=== PATIENT | female | born 1965 | race Caucasian/White ===

== ENCOUNTER 2023-08-25 10:07 | Emergency (ER) | payer OTHER ==
--- OUTSIDE RECORDS SUMMARY | 2023-08-25 10:10 | XMS REPORT | Clinical Summary ---
:1965 Author Organization [facility] MD [facility] Address [address] [place] [address] Care Team Providers Name Role Phone Bonifacio Louie MD Unavailable Luciana Lares MD Primary Care Provider Elda Cervantes MD Unavailable Allergies No known active allergies Medications Medication Sig Dispensed Refills Start Date End Date Status ondansetron (ZOFRAN) 0 07/19/2022 Active 4 mg tablet Januvia 100 mg tablet TAKE 1 TABLET 0 06/08/2022 Active BY MOUTH EVERY DAY traZODone (DESYREL) TAKE 1 TABLET 0 06/08/2022 Active 150 mg tablet BY MOUTH EVERYDAY AT BEDTIME mirtazapine (REMERON) TAKE 1 TABLET 0 05/23/2022 Active 15 mg tablet BY MOUTH EVERYDAY AT BEDTIME pioglitazone (ACTOS) TAKE 1 TABLET 0 06/08/2022 Active 30 mg tablet BY MOUTH EVERY DAY glipiZIDE (GLUCOTROL) TAKE 1 TABLET 0 06/08/2022 Active 10 mg tablet BY MOUTH EVERY DAY cloNIDine HCl TAKE 1 TABLET 0 06/22/2022 A ctive (CATAPRES) 0.3 mg BY MOUTH tablet EVERYDAY AT BEDTIME metoprolol succinate TAKE 1 TABLET 0 06/08/2022 Active (TOPROL XL) 50 mg 24 BY MOUTH EVERY hr tablet DAY IN THE MORNING lisinopril TAKE 1 TABLET 0 06/08/2022 Acti ve (PRINIVIL,ZESTRIL) 20 BY MOUTH EVERY mg tablet DAY IN THE MORNING HYDROcodone-acetamino TAKE 1 TABLET 0 06/28/2022 Active phen (NORCO) 10 BY MOUTH EVERY mg-325 mg per tablet 6 HOURS NEEDED FOR PAIN (MAX OF 4 TABLETS DAILY)... blood sugar Check sugars 1 0 06/03/2017 Ac tive diagnostic strp times a day. Dx Code E11.9. Brand per insurance. blood-glucose meter Check sugars 0 06/03/2017 Active kit times a day. Dx Code E11.9. Brand per insurance. lancets 28 gauge misc Use as directed 0 06/05/2017 Active lactulose (CHRONULAC) 0 08/07/2022 Active 10 gram/15 mL solution calcitriol Take 1 capsule 30 capsule 0 09/06/2022 10/06/2022 E xpired (ROCALTROL) 0.25 mcg (0.25 mcg) by capsuleIndications: mouth daily for Thyroid nodule 30 days. calcium carbonate Take 1 tablet 90 tablet 0 09/06/2022 023 (OS-DEBBY) 500 mg (500 mg) by (1,250 mg calcium mouth 3 (three) carbonate per tablet) times a day for tabletIndications: 30 days. Thyroid nodule levothyroxine Take 1 tablet 30 tablet 0 09/07/2022 10/07/2022 (SYNTHROID, (200 mcg) by LEVOTHROID) 200 mcg mouth daily for tabletIndications: 30 days. 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 , chronic renal 02/01/2020 disease stage 2, chronic renal disease stage 3 or chronic re nal disease stage 4 Gastro-esophageal reflux disease without esophagitis 020 Chronic kidney disease stage 3 02/01/2020 Essential hypertension 10/15/2019 Malignant neoplasm of axillary tail of female breast 020 Type 2 diabetes mellitus 10/15/2019 Hyperlipidemia 12/13/2015 Malignant tumor of breast 01/14/2015 Depressive disorder 10/25/2014 Encounters Date Type Department Care Team Description 02/27/2023 Refill [facility] Helen, Elda Ceja, Thyroi d nodule [place] - Head & Neck PR Surgery [address] [place] [address] 09/29/2022 Refill Elda Thorne, Thyroi d nodule [facility] - Head & Neck Surgery [address] [place] [address] 09/13/2022 Telephone [facility], [address]ldg, 6th [place] [address] 09/11/2022 Office Visit Elda Thorne, Thyroi d nodule 1:00 PM [facility] Head [facility] Neck PRODUCTION POSTING CLERK Surgery [address] [place] [address] 09/11/2022 Travel 09/07/2022 Telephone Citlaly Vyas [facility]ura Head & Neck sales engagement manager [address] [place] [address] 09/06/2022 Orders Only Endocrine Center Kelsi Marrufo, Postprocedural [address] ENTRY LEVEL FINANCIAL ANALYST hypoparathyroidism Main Bldg, 6th (Primary Dx) [place] [address] 09/05/2022 Surgery MAIN OR Elda Cervantes, TOTAL OR COMPLETE 8:00 AM Tammie Hu MD THYROIDECTOMY [facility] [place] [address] 09/05/2022 12:[address] [facility] 09/05/2022 Anesthesia Event MAIN OR Lan, 8:00 AM [place] [address] Toni Roberson, HEALTHCARE ECONOMICS MANAGER 09/05/2022 Hospital Encounter MAIN 12SW Elda Cervantes, Thyroid nodule 5:48 AM Tammie Pacheco MD Discharge Disp osition: Home [facility] [place] 09/06/2022 [place] [address] 3:27 PM [phone] [facility] 09/05/2022 Travel 09/04/2022 Anesthesia Event Perioperative Bre Mcallister, 11:59 PM Evaluation and ENTRY LEVEL FINANCIAL ANALYST PRODUCTION POSTING CLERK Management Center [address], 6th [place] [address] 09/04/2022 POEM Appointments Perioperative Harjeetjessicajonas, Thyroid n odule 11:30 AM Evaluation and FABIO Ramos PRODUCTION POSTING CLERK Management Center [address] [facility] Main [facility], 6th [place] [address] 09/03/2022 Clinical Support Roman Wynn cted COVID-19 (Primary Dx); 9:00 AM [facility] FABIO Louie Thyroid nodule PRODUCTION POSTING CLERK Testing Breann West [address] [place] [address] 09/03/2022 Travel after 08/25/2022 Surgical History Surgery Date Site/Laterality Comments HYSTERECTOMY THYROID SURGERY CHOLECYSTECTOMY PA THYROIDECTOMY TOTAL/COMPLETE 09/05/2022 Neck/Bilateral Procedure: TOTAL OR COMPLETE THYROID ECTOMY; Surgeon: Elda Cervantes MD; Location: [place]; Service: - AD & NECK SURGERY Medical History Medical History Date Comments Hypertension Hyperlipidemia Anemia Arthritis Disorder of thyroid gland Diabetes mellitus Malignant tumor of breast Stage 4 right breast cancer Family History Medical History Relation Name Comments Skin cancer Maternal Uncle Dwayne Escobar Stomach cancer Maternal Uncle Dwayne Escobar Relation Name Status Comments Maternal Uncle Dwayne Escobar Alive Social History Tobacco Use Types Packs/Day Years Used Date Smoking Tobacco: Former Cigarettes 0.5 2 Quit : 2009 Smokeless Tobacco: Never Tobacco Cessation: Counseling Given: Not Answered Comments: Per patient she only smoked 1 cigarette socially for about 2 years. Alcohol Use Standard Drinks/Week Comments Not Currently 0 (1 standard drink = 0.6 oz pure alcoho l) Sex and Gender Information Value Date Recorded Sex Assigned at Not on file Gender Identity Not on file Sexual Orientation Not on file Job Start Date Occupation Industry Not on file Not on file Not on file Obstetrics History Last Filed Vital Signs Vital Sign Reading Time Taken Comments Blood Pressure 151/86 09/11/2022 1:07 PM PRODUCTION POSTING CLERK Pulse 67 09/11/2022 1:07 PM PRODUCTION POSTING CLERK Temperature 36.9 C (98.4 F) 09/11/2022 1:07 PM PRODUCTION POSTING CLERK Respiratory Rate 14 09/11/2022 1:07 PM PRODUCTION POSTING CLERK Oxygen Saturation 100% 09/11/2022 1:07 PM PRODUCTION POSTING CLERK Inhaled Oxygen Concentration - - Weight 120.8 kg (266 lb 5.1 oz) 09/11/2022 1:07 PM PRODUCTION POSTING CLERK Height - - Body Mass Index 39.58 08/01/2022 1:57 PM PRODUCTION POSTING CLERK Plan of Treatment Health Maintenance Due Date Last Done Comments COVID-19 Vaccination (#1) 1965 Procedures Procedure Name Priority Date/Time Associated Diagnosis Comme nts PTH INTACT STAT 09/11/2022 11:53 Postprocedural Results f or AM PRODUCTION POSTING CLERK hypoparathyroidism this proc edure are in the results section. ALBUMIN LEVEL STAT 09/11/2022 11:53 Postprocedural Results for AM PRODUCTION POSTING CLERK hypoparathyroidism this proc edure are in the results section. PHOSPHORUS LEVEL STAT 09/11/2022 11:53 Postprocedural Resul ts for AM PRODUCTION POSTING CLERK hypoparathyroidism this proc edure are in the results section. MAGNESIUM LEVEL STAT 09/11/2022 11:53 Postprocedural Result s for AM PRODUCTION POSTING CLERK hypoparathyroidism this proc edure are in the results section. CALCIUM LEVEL STAT 09/11/2022 11:53 Postprocedural Results for AM PRODUCTION POSTING CLERK hypoparathyroidism this proc edure are in the results section. ALBUMIN LEVEL AM 09/06/2022 2:41 Results for AM PRODUCTION POSTING CLERK this procedure are in the results section. PTH INTACT AM 09/06/2022 2:41 Results for AM PRODUCTION POSTING CLERK this procedure are in the results section. PHOSPHORUS LEVEL AM 09/06/2022 2:41 Results for AM PRODUCTION POSTING CLERK this procedure are in the results section. CALCIUM LEVEL AM 09/06/2022 2:41 Results for AM PRODUCTION POSTING CLERK this procedure are in the results section. MAGNESIUM LEVEL AM 09/06/2022 2:41 Results f or AM PRODUCTION POSTING CLERK this procedure are in the results section. POC GLUCOSE SCREEN Routine 09/05/2022 3:32 Result s for PM PRODUCTION POSTING CLERK this procedure are in the results section. PHOSPHORUS LEVEL Now 09/05/2022 11:31 Results for AM PRODUCTION POSTING CLERK this procedure are in the results section. MAGNESIUM LEVEL Now 09/05/2022 11:31 Results for AM PRODUCTION POSTING CLERK this procedure are in the results section. CALCIUM LEVEL Now 09/05/2022 11:31 Results fo r AM PRODUCTION POSTING CLERK this procedure are in the results section. PTH INTACT Now 09/05/2022 11:31 Results for AM PRODUCTION POSTING CLERK this procedure are in the results section. ALBUMIN LEVEL Now 09/05/2022 11:31 Results fo r AM PRODUCTION POSTING CLERK this procedure are in the results section. POC GLUCOSE SCREEN Routine 09/05/2022 10:22 Resul ts for AM PRODUCTION POSTING CLERK this procedure are in the results section. PATHOLOGY SURGICAL Routine 09/05/2022 9:59 Thyroid nodule Resu lts for INTERPRETATION AM PRODUCTION POSTING CLERK this procedur e are in the results section. TOTAL OR COMPLETE 09/05/2022 7:20 Thyroid nodule THYROIDECTOMY AM PRODUCTION POSTING CLERK [facility] [place] 0615 POC GLUCOSE SCREEN Routine 09/05/2022 7:16 AM Res ults for this PRODUCTION POSTING CLERK procedure are i n the results section. TMP INTERPRETATION Routine 09/05/2022 6:48 AM Res ults for this ANTIBODY SCREEN PRODUCTION POSTING CLERK procedure ar e in NEGATIVE the results section. CLOT EXPIRATION DATE Routine 09/05/2022 6:48 AM R esults for this PRODUCTION POSTING CLERK procedure are i n the results section. ANTIBODY SCREEN Now 09/05/2022 6:48 AM Result s for this PRODUCTION POSTING CLERK procedure are i n the results section. ABORH Now 09/05/2022 6:48 AM Results f or this PRODUCTION POSTING CLERK procedure are i n the results section. TYPE AND SCREEN Now 09/05/2022 6:48 AM PRODUCTION POSTING CLERK COVID-19 (SARS-COV-2) Routine 09/03/2022 9:54 AM Suspected COV ID-19 Results for this PCR - ASYMPTOMATIC - [facility] PRODUCTION POSTING CLERK proc edure are in the results section. after 08/25/2022 Results PTH Intact (09/11/2022 11:53 AM PRODUCTION POSTING CLERK)Only the most recent of3 resultswithin the time period is included. athologist Signature PTH Intact 25.9 15.0 - 65.0 [facility] pg/mL CANCER CENTER Specimen Anatomical Collection Method Collection Time Receive d Time (Source) Location / / Volume Laterality Blood 09/11/2022 11:53 09/11/2022 7:26 AM PRODUCTION POSTING CLERK PM PRODUCTION POSTING CLERK Narrative [facility] - 7:39 PM PRODUCTION POSTING CLERK To be drawn at [facility]. Please schedule to be done along with other appointment on Saturday09/10/22 Kelsi Marrufo APRN LAB BLOOD ORDERABLES Performing Organization Address City/State/ZIP Code Phon e Number [facility] CANCER Unless otherwise noted, [place] [address] [place] all lab tests performed by: Division of Pathology and Laboratory Medicine [address] (ABNORMAL) Phosphorus Level (09/11/2022 11:53 AM PRODUCTION POSTING CLERK)Only the most recent of3 resultswithin the time period is included. athologist Signature Phosphorus 5.1 (H) 2.5 - 4.5 [place] mg/dL Comment: Testing performed at [facility], [address] [place] [address] Specimen Anatomical Collection Method Collection Time Receive d Time (Source) Location / / Volume Laterality Blood 09/11/2022 11:53 09/11/2022 AM PRODUCTION POSTING CLERK 11:54 AM PRODUCTION POSTING CLERK [facility] - 09/11/2022 12:16 PM PRODUCTION POSTING CLERK To be drawn at [facility]. Please schedule to be done along with other appointment on Saturday09/10/22 Kelsi Marrufo APRN LAB BLOOD ORDERABLES Performing Organization Address City/[facility]/[place]IP [place] [address], [facility] [address] (ABNORMAL) Magnesium Level (09/11/2022 11:53 AM PRODUCTION POSTING CLERK)Only the most recent of3 resultswithin the time period is included. athologist Signature Magnesium 1.5 (L) 1.6 - 2.6 [place] mg/dL Comment: Testing performed at [facility], [address] [place] [address] Specimen Anatomical Collection Method Collection Time Receive d Time (Source) Location / / Volume Laterality Blood 09/11/2022 11:53 09/11/2022 AM PRODUCTION POSTING CLERK 11:54 AM PRODUCTION POSTING CLERK [facility] - 09/11/2022 12:16 PM PRODUCTION POSTING CLERK To be drawn at [facility]. Please schedule to be done along with other appointment on Saturday09/10/22 Kelsi Marrufo APRN LAB BLOOD ORDERABLES Performing Organization Address City/[facility]/ZIP [facility] [place] [address], [facility] [address] Calcium Level (09/11/2022 11:53 AM PRODUCTION POSTING CLERK)Only the most recent of3 resultswithin the time period is included. athologist [facility] Calcium Lvl 8.7 8.4 - 10.2 [place] mg/dL Comment: Testing performed at [facility], [address] [place] [address] Specimen Anatomical Collection Method Collection Time Receive d Time (Source) Location / / Volume Laterality Blood 09/11/2022 11:53 09/11/2022 AM PRODUCTION POSTING CLERK 11:54 AM PRODUCTION POSTING CLERK [facility] - 09/11/2022 12:16 PM PRODUCTION POSTING CLERK To be drawn at [facility]. Please schedule to be done along with other appointment on Saturday09/10/22 Kelsi Marrufo APRN LAB BLOOD ORDERABLES Performing Organization Address City/[facility]/ZIP Code Phon e Number [place], [place] [address] [place] [address], [facility] [address] Albumin Level (09/11/2022 11:53 AM PRODUCTION POSTING CLERK)Only the most recent of3 resultswithin the time period is included. athologist [facility] Albumin Lvl 4.1 3.5 - 5.2 [place] gm/dL Comment: Testing performed at [facility], [address] [place] [address] Specimen Anatomical Collection Method Collection Time Receive d Time (Source) Location / / Volume Laterality Blood 09/11/2022 11:53 09/11/2022 AM PRODUCTION POSTING CLERK 11:54 AM PRODUCTION POSTING CLERK [facility] - 09/11/2022 12:16 PM PRODUCTION POSTING CLERK To be drawn at [facility]. Please schedule to be done along with other appointment on Saturday09/10/22 Kelsi Marrufo APRN LAB BLOOD ORDERABLES Performing Organization Address City/[facility] Phon e Number [place], [place] [phone] [place] [address], [facility] [address] (ABNORMAL) POC Glucose Screen (09/05/2022 3:32 PM PRODUCTION POSTING CLERK)Only the most recent of3 resultswithin the time period is included. athologist Signature POC Glucose 117 (H) 70 - 99 POC [facility] mg/dL Comment: Capillary blood samples, e.g. obtained b y fingerstick, may have inaccurate results in patients with decreased peripheral blood flow. Method description: All results are keon ured using Electrochemistry test methodology. The glucose in the sample mixes with the reagents on the test strip. The reaction produces an electric current. The amount of current produced is proportion al to the glucose concentration in the blood. PO Sample Type Capillary POC TELCOR Performing Lab [facility] POC TELCO R Comment: [facility] Clinical Lab, [address] [place] [address], [place] [address]; Lab Direct or: Leslie Sol MD Specimen Anatomical Collection Method Collection Time Receive d Time (Source) Location / / Volume Laterality Blood 09/05/2022 3:32 PM 3:32 PRODUCTION POSTING CLERK PM PRODUCTION POSTING CLERK Elda Cervantes MD POCT ORDERABLES - DEVICE Performing Organization Address City/State/ZIP Code Phon e Number POC [facility] Unless otherwise notes, all [place] [id number] lab tests performed by: Division of Pathology and Laboratory Medicine [address] [place] [address] Pathology Surgical Interpretation (09/05/2022 9:59 AM PRODUCTION POSTING CLERK) Component Value Ref Test Analysis Performed Pathologis t Range Method Time At Signature Submitted Thyroid nodule 09/11/2022 [facility] Clinical [E04.1] 12:32 PM History PRODUCTION POSTING CLERK Diagnosis Right thyroid lobectomy (A), right substernal mass(B) and left retrosternal mass (C): 09/11/2022 [facility] Elect ronically 12:32 PM signed by Follicular adenomatous hyperplasia(A,B and C) PRODUCTION POSTING CLERK Mabel Garcia MD on 09/11/2022 at 12:32 PM AEN/FBA Gross A: 09/11/2022 [facility] Description Right thyroid lobectomy stit ch superior pole (permanent): Consists of a 6.5 x 3.5 x 3.1 cm thyroid lobectomy. Per the surgeon there is a stitch designating the superior pole. The capsule is kovacs-brown and intact. 12:32 PM The specimen is serially sec tioned from superior to inferior to demonstrate multiple nodules (ranging from 0.3-1.7 cm in greatest dimension) extending from the superior to inferior poles. The nodules de PRODUCTION POSTING CLERK monstrate slightly solid pin k-kovacs to hemorrhagic cut surfaces. Remaining parenchyma is red-brown with interspersed colloid material. SECTION CODE: A1-A2, superior pole; A3, midpole; A4-A5, inf erior pole. MF B: Right substernal mass (perma nent): Consists of two nodular portions of kovacs- brown soft tissue measuring 1.3 x 0.8 x 0.6 cm and 3.3 x 2.5 x 2.4 cm. Sectioning demonstrates kovacs-brown cut surfaces with jesu oid material. The specimen is entirely submitted. SECTION CODE: B1, smaller nodule (trisected); B2-B8, larger nodule. MF C: Left retrosternal mass (perm anent): Consists of a 3.0 x 2.9 x 2.1 cm portion of nodular kovacs-brown soft tissue. The specimen is serially sectioned to demonstrate cut surfaces containing colloid material admixed with possible hemorr silver. The specimen is entirely submitted in cassettes C1-C6. MF Biomarker NA 09/11/2022 [facility] Block(s) 12:32 PM PRODUCTION POSTING CLERK Disclaimer "Some tests 09/11/2022 [facility] reported here may 12:32 PM have been PRODUCTION POSTING CLERK developed and performance characteristics determined by [facility] Pathology and Laboratory Medicine. These tests have not been specifically cleared or approved by the U.S. Food and Drug Administration. If applicable, controls were reviewed and showed appropriate reactivity." Specimen Anatomical Collection Method Collection Time Receive d Time (Source) Location / / Volume Laterality Tissue specimen 09/05/2022 9:59 AM 2021 (specimen) PRODUCTION POSTING CLERK 10:37 AM PRODUCTION POSTING CLERK (Thyroid, Right Lobe) Tissue specimen 09/05/2022 10:14 09/05/20 22 (specimen) AM PRODUCTION POSTING CLERK 10:37 AM PRODUCTION POSTING CLERK (Chest, Right) Tissue specimen 09/05/2022 10:21 09/05/20 22 (specimen) AM PRODUCTION POSTING CLERK 10:37 AM PRODUCTION POSTING CLERK (Chest, Left) Elda Cervantes MD LAB PATHOLOGY ORDERABLES Performing Organization Address City/State/ZIP Code Phon e Number [facility] [place] [address], [place] [address] [place] Clot Expiration Date (09/05/2022 6:48 AM PRODUCTION POSTING CLERK) [facility] Signature T & S 09/08/2022 [facility] Specimen Anatomical Collection Method Collection Time Receive d Time (Source) Location / / Volume Laterality Blood 09/05/2022 6:48 AM 2 7:41 PRODUCTION POSTING CLERK AM PRODUCTION POSTING CLERK Bre Mcallister APRN BLOOD BANK TEST ORDERABLES Performing Organization Address City/State/ZIP Code Phon e Number [facility] CANCER Unless otherwise noted, [address] all lab tests performed by: Division of Pathology and Laboratory Medicine [address] [place] [address] TMP Interpretation Antibody Screen Negative (09/05/2022 6:48 AM PRODUCTION POSTING CLERK) [facility] TMP Auto Neg At the [facility] patient plasma shows no evidence of RBC alloantibodi es. Comment: ANGIE MENDOSA MD, PhD - [id number] Dictated by: ANGIE MENDOSA MD, Ph D - [id number] Dictated Date/Time: 09.05.2022 10:34 AM PRODUCTION POSTING CLERK Transcribed Date/Time: 09.05.2022 10:34 AM PRODUCTION POSTING CLERK Electronically Signed By: ANGIE MENDOSA MD, PhD - [id number] on 09.05.2022 10:34 AM Specimen Anatomical Collection Method Collection Time Receive d Time (Source) Location / / Volume Laterality Blood 09/05/2022 6:48 AM 2 7:41 PRODUCTION POSTING CLERK AM PRODUCTION POSTING CLERK Bre Mcallister APRN BLOOD BANK TEST ORDERABLES Performing Organization Address City/State/ZIP [facility] Phon e Number [facility] Unless otherwise noted, [address] all lab tests performed by: Division of Pathology and Laboratory Medicine [address] [place] [address] ABORh (09/05/2022 6:48 AM PRODUCTION POSTING CLERK) P athologist Signature ABORh. A POS [facility] Specimen Anatomical Collection Method Collection Time Receive d Time (Source) Location / / Volume Laterality Blood 09/05/2022 6:48 AM 2 7:41 PRODUCTION POSTING CLERK AM PRODUCTION POSTING CLERK Bre Mcallister APRN BLOOD BANK TEST ORDERABLES Performing Organization Address City/State/ZIP Code Phon e Number [facility] Unless otherwise noted, [address] all lab tests performed by: Division of Pathology and Laboratory Medicine [facility] [place] Antibody Screen (09/05/2022 6:48 AM PRODUCTION POSTING CLERK) P athologist Signature ABSC. Negative ABSC [facility] Specimen Anatomical Collection Method Collection Time Receive d Time (Source) Location / / Volume Laterality Blood 09/05/2022 6:48 AM 2 7:41 PRODUCTION POSTING CLERK AM PRODUCTION POSTING CLERK Bre Mcallister APRN BLOOD BANK TEST ORDERABLES Performing Organization Address City/[facility] Phon e Number [facility] Unless otherwise noted, [address] all lab tests performed by: Division of Pathology and Laboratory Medicine [facility] COVID-19 (SARS-CoV-2) PCR-Asymptomatic [facility] (09/03/2022 9:54 AM PRODUCTION POSTING CLERK) Patholo gist Method Time Signature COVID19 (SARS Not Detected Not Detected [facility] CoV-2) [facility] Comment: This test is a qualitative reverse-trans criptase polymerase chain reaction (RT- PCR) developed for the [employer] system and intended for qualitative detection of SARS CoV-2 RNA in nasopharyngeal a nd oropharyngeal swab specimens collecte d from any individuals, including those suspected o f COVID-19 by their healthcare provider, and those without symptoms or other reasons to suspect COVID-19. A fact sheet for patients provided by the web services manager ( [employer]) can be rev iewed at: https://www.fda.gov/media/884445/adrien d. A fact sheet for Health Care providers is provided by the web services manager ([employer]) and can be reviewed at: https://www.fda.gov/media/264012/download Results must be interpreted within the c ontext of all relevant clinical and laboratory findings and should not form the sole basis for a diagnosis or treatment decision. Positive results do not rule out bacterial infection or co- infection with other viruses. Negative results do not rule ou t SARS-CoV-2 and must be combined with clinical observations, patient history, and/or epidemiological information. "Presumptive Positive" results are due t o partial amplification of SARS-CoV-2 targets and indicates low amounts of virus present in the specimen at or near the limit of detection. Regardless, individuals with "Presumptive Positive" results should be managed per institutional guidelines as individuals positive for SARS-CoV-2 virus, including use of appropriate infection control protocols. Internal controls are included to assess for possible amplification inhibitors. If inhibition is detected, testing is repeated and if inhibition is confirmed the specimen is resulted as "Invalid". When an "Invalid" result occurs, it is recomm ended to wait 3 days before submitting a new spec imen for testing if clinically indicated. This assay has been approved by the FDA for use only under Emergency Use Authorization (EUA) in laboratories that have been CLIA-certified to perform moderate-complexity and high-complexity tests. The performance characteristics of this assay were verified by the Microbiology Laboratory at [facility], CLIA Accreditation #: [id number] and CAP Accreditation #: [id number]. COVID19 SARS Source ELEMENTARY SCIENCE TEACHER Swab CO MD [facility] COVID19 SARS Indication Pre-OR Procedure [facility] Specimen (Source) Anatomical Collection Method Collection Time Re ceived Time Location / / Volume Laterality Nasopharyngeal Swab 09/03/2022 9:54 09/03 AM PRODUCTION POSTING CLERK 7:36 PM PRODUCTION POSTING CLERK Rachel MCCARTHY MICROBIOLOGY - GENERAL ORDER NOHEMY Performing Organization Address City/State/ZIP Code Phon e Number [facility] Unless otherwise noted, [place] [address] [place] all lab tests performed by: Division of Pathology and Laboratory Medicine [address] [place] [address] [place] after 08/25/2022 Insurance Payer Benefit Plan / Subscriber ID Effective Phone Address T ype Group Dates MEDICARE MEDICARE PART A [id number] 2016-Pres [phone] [facility] Medicare AND B ent [id number] [employer] [address] [employer] [place] [id number] [place] [id number] 2022-Pre [address] Medicaid TRADITIONAL TRADITIONAL sent [id number] [place] [address] Advance Directives Code Status Date Activated Date Inactivated Comments Full Code 09/05/2022 2:32 PM 09/06/2022 5:33 PM Care Teams Hotel Housekeeper Relationship Specialty Start Date End Date Bonifacio Louie PCP - External Referring Family Practice 02/17/20 MD Chris [address] [place] [address] [place] [address] Luciana Lares MD PCP - General Medical Oncology 02/18/[address] [place] [id number] Elda Cervantes MD Physician Head and Neck Surgery 07/24/[address] [place] [id number]
--- OUTSIDE RECORDS SUMMARY | 2023-08-25 10:21 | XMS REPORT | Continuity of Care Document ---
:1965 Author Organization [facility] t Address [address] [place] [address] [address] [place] [address] Care Team Providers Name Role Phone [phone] Primary Care Physician Unavailable SYSTEM, PROVIDER NOT IN Attending Clinician Unavailable SPIKE CALDWELL Attending Clinician Unavailable Spike Caldwell MD Attending Clinician Doctor Unassigned, [place] Attending Clinician Unavailable 2, [facility] Attending Clinician Unavailable Jayna Moulton NP Attending Clinician Elda Cervantes MD Attending Clinician RADIOLOGY Attending Clinician Unavailable Radiology Attending Clinician Unavailable SANDRA GREGORY Attending Clinician Unavailable Agustín Bowles Attending Clinician ELDA CERVANTES Attending Clinician Unavailable KELSI MCCLAIN Attending Clinician Unavailable Citlaly Koehler RN Attending Clinician Unavailable Kelsi Mcclain APRN Attending Clinician Laurie Montenegro MD Attending Clinician Toni Roberson CRNA Attending Clinician Bre Mcallister APRN Attending Clinician Tenzin Reyes Attending Clinician TENZIN DREW Attending Clinician Unavailable Braenn West MA Attending Clinician Unavailable JAIRO ARAYA Attending Clinician Unavailable Liban LEDESMA, Pepe Perez Attending Clinician ADARSH ALICEA Attending Clinician Unavailable Johnathon LEDESMA, Adarsh Polk Attending Clinician Obdulia WILSON, Alyssa Attending Clinician Unavailable Ye LEDESMA, Gordon Attending Clinician Eduard LEDESMA, Abel Attending Clinician PEPE CAAL Attending Clinician Unavailable King LOWELL MD, Pepe Vora Attending Clinician Simba Holm DO Attending Clinician Jonna LEDESMA, Mary Shanks Attending Clinician [phone] SHENG CAI Attending Clinician Unavailable Modesta OKEEFE, Sheng Christian Attending Clinician Blanca Ortiz DO Attending Clinician NABOR DIALLO Attending Clinician Unavailable Yudith MYERS, Nabor B Attending Clinician Margarito LEDESMA, Rossana Attending Clinician Marco A LEDESMA, Daniela Hernadez Attending Clinician Concha Bustamante Attending Clinician SAMM MANLEY Admitting Clinician Unavailable ELDA CERVANTES Admitting Clinician Unavailable SPIKE CALDWELL Admitting Clinician Unavailable Abel Chapa MD Admitting Clinician SHENG CAI Admitting Clinician Unavailable NABOR DIALLO Admitting Clinician Unavailable Payers Payer Name Policy Type Policy Number Effective Date Expiration Date S kyle MEDICARE PART A [id number] 2016 \\T\\ B 00:00:00 MOHINI MOLINA PLS [id number] 2019 HMO 00:00:00 MEDICAID OF [place] [id number] 2021 00:00:00 Problems Condition Condition Condition Status Onset Resolution Last Treating Co mments Source Name Details Category Date Date Treatment Clinician Date Anxiety, Anxiety, Disease Active Unive rs generalize generalize 6-08 it y of d d 00:00: Medical Branch 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 [facility] Added automatic ally from request for surgery [id number] Goiter Goiter Disease Active Univers 9-18 ity of 00:00: Medical Branch Chronic Chronic Disease Active Univers pain pain 9-18 ity of syndrome syndrome 00:00: [place] [facility] Chest pain Chest pain Disease Active U nivers 7-14 ity of 00:00: [place] [facility] Elevated Elevated Disease Active Unive rs brain brain 7-14 ity of natriureti natriureti 00:[place] c peptide c peptide 00 Medi debby (BNP) (BNP) Branch level level BMI BMI Disease Active Univers 37.0-37.9, 37.0-37.9, 7-14 it y of adult adult 00:00: [place] [facility] 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 5-19 ity of syndrome syndrome 00:00: [place] 00 MD [facility] 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 hyperchole 5-11 it y of sterolemia sterolemia 00:[place]: [place] 00 [place] Benign Benign Disease Active Univers hypertensi hypertensi 5-11 it y of on with on with 00:00: [place] chronic chronic 00 renal renal Anderso disease disease n stage 1, stage 1, Cancer chronic chronic Center renal renal disease disease stage 2, stage 2, chronic chronic renal renal disease disease stage 3 or stage 3 or chronic chronic renal renal disease disease stage 4 stage 4 Gastro-eso Gastro-eso Disease Active 2020-0 U nivers phageal phageal 5-11 ity of reflux reflux 00:00: [place] disease disease 00 without without Andmadalyn esophagiti esophagiti [facility] Chronic Chronic Disease Active 2020-0 Univers kidney kidney 5- ity of disease disease 00:00: [place] stage 3 stage 3 00 MD [facility] Insomnia Insomnia Disease Active Unive rs due to due to 10-15 ity of medical medical 00:00: [place] condition condition 00 [facility] Branch Need for Need for Disease Active Unive rs pneumococc pneumococc 10-15 it y of al al 00:00: [place] vaccinatio vaccinatio 00 Nv dical n n Branch Palliative Palliative Disease Active 2019- U nivers care by care by 10-15 ity of specialist specialist 00:[place] 00 [place] Nausea and Nausea and Disease Active U nivers vomiting, vomiting, 10-15 ity of intractabi intractabi 00:00[place] lity of lity of 00 Medical vomiting vomiting Branch not not specified, specified, unspecifie unspecifie d vomiting d vomiting type type Need for Need for Disease Active Unive rs pneumococc pneumococc 10-15 it y of al al 00:00: [place] vaccinatio vaccinatio 00 Nv dical n n Branch Encounter Encounter Disease Active Uni vers for for -23 ity of screening screening 00:00: Sherri mercer mammogram mammogram 00 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 3-19 ity of vomiting vomiting 00:00: [place] 00 Medical Branch Multiple Multiple Disease Active Unive rs thyroid thyroid 3-22 ity of nodules nodules 00:00: [place] 00 Medical Branch Hyperlipid Hyperlipid Disease Active U obdulio emia emia 3-22 ity of 00:00: [place] 00 MD [facility] Breast Breast Disease Active Univers cancer, cancer, 4-24 ity of stage 4, stage 4, 00:00: [place] right right 00 Medical Branch Thyroid Thyroid Disease Active Univers activity activity 4-24 [place] of decreased decreased [place] [facility] Malignant Malignant Disease Active Uni vers tumor of tumor of 4-24 ity of breast breast 00:00: [place] 00 MD [facility] History of History of Disease Active U obdulio conization conization 2- it [place] of of cervix [place] [facility] Lump or Lump or Disease Active Univers mass in mass in 2- ity of breast breast 00:00: [place] [facility] History of History of Disease Active U obdulio tubal tubal 2-02 ity of ligation ligation 00:00: [place] [facility] Morbid Morbid Disease Active Univers obesity obesity 2-02 ity of 00:00: [place] [facility] Depressive Depressive Disease Active U obdulio disorder disorder 2- ity of 00:00: [place] 00 MD [facility] Allergies, Adverse Reactions, Alerts Allergy Allergy Status Severity Reaction(s) Onset Inactive Treating Comm ents Source Name Type Date Date Clinician NO KNOWN Drug Active Univers ALLERGIE Class ity of S [facility] Family History Family Member Diagnosis Comments Start Date Stop Date Source Maternal uncle Skin cancer Universit y [facility] MD Rowe Cance r [place] Maternal uncle Stomach cancer [facility] Jae Cance r [place] Social History Social Habit Start Date Stop Date Quantity Comments Source Gender identity Universit y [place] [facility] History of tobacco Current smoker Un iversity of use [place] [facility] Sexual orientation [facility] MD [facility] Exposure to 2022-10-15 2022-10-25 Not sure University of SARS-CoV-2 (event) 00:00:00 08:09:00 [facility] Alcohol intake 2022-09-11 2022-09-11 Ex-drinker University of 00:00:00 00:00:00 (finding) [place] MD Margarito francis [facility] History of Social 2022-09-11 2022-09-11 Univers ity of function 00:00:00 00:00:00 [place] MD Margarito francis [facility] Cigarettes smoked 2022-07-24 2022-07-24 Univers ity of current (pack per 00:00:00 00:00:00 Larry Irvin ) - Reported Cancer Ce nter Cigarette 2022-07-24 2022-07-24 University of pack-years 00:00:00 00:00:00 [place] MD Margarito francis [facility] Tobacco use and 2022-07-24 2022-07-24 Smokeless Universit y of exposure 00:00:00 00:00:00 tobacco non-user [facility] Tobacco Comment 2022-07-24 2022-07-24 Per patient she Univ ersity of 00:00:00 00:00:00 only smoked 1 [place] MD Glenda maxwell cigarette [facility] socially for about 2 years. Sex [birth year] Universit y of 00:00:00 00:00:00 [place] MD Margarito francis [facility] Smoking Status Start Date Stop Date Source Ex-smoker 2022-07-24 00:00:00 2022-07-24 00:00:00 Universi ty of [facility] Never smoked tobacco [facility] Medications Ordered Filled Start Stop Current Ordering Indication Dosage Frequency Signature Comments Components Source Medication Medication Date Date Medication? Clinician (SIG) Name Name ondansetron 2022-09 Yes [id number] 4mg Take 1 Univers 4 mg tablet 1-29 tablet by ity of 00:00: mouth 00 every 8 Medical (eight) Branch hours as needed for Nausea and Vomiting (N/V). levothyroxi 2022-09 Yes [id number] 200ug Take 1 Univers ne 200 mcg 1-04 tablet by ity of tablet 00:00: mouth [place] 00 every Medical morning. Branch levothyroxi 2022-09 Yes [id number] 50ug Take 1 Univers ne 50 mcg 1-04 tablet by ity o f tablet 00:00: mouth [place] 00 every Medical morning. Branch levothyroxi 2022-09 Yes [id number] 200ug Take 1 Univers ne 200 mcg 1-04 tablet by ity of tablet 00:00: mouth [place] 00 every Medical morning. Branch levothyroxi 2022-09 Yes [id number] 50ug Take 1 Univers ne 50 mcg 1-04 tablet by ity o f tablet 00:00: mouth [place] 00 every Medical morning. Branch levothyroxi 2022-09 Yes [id number] 200ug Take 1 Univers ne 200 mcg 1-04 tablet by ity of tablet 00:00: mouth [place] 00 every Medical morning. Branch levothyroxi 2022-09 Yes [id number] 50ug Take 1 Univers ne 50 mcg 1-04 tablet by ity o f tablet 00:00: mouth [place] 00 every Medical morning. Branch sitaGLIPtin 2022-09 Yes [id number] 100mg Take 1 Univers phosphate 0-31 tablet by ity o f (JANUVIA) 00:[place] 00 the Medical tablet morning. Branch pioglitazon 2022-09 Yes [id number] 30mg Take 1 Univers e 30 mg 0-31 tablet by ity of tablet 00:00: mouth [place] 00 every Medical morning. Branch semaglutide 2022-09 Yes [id number] 1mg inject 1 Univers (OZEMPIC) 1 0-31 mg under ity of mg/dose (4 00:00: the skin [place] as mg/3 mL) 00 weekly. Medical PnIj Branch metoprolol 2022-09 Yes [id number] 50mg Take 1 U nivers succinate 0-31 tablet by ity o f XL 50 mg 24 00:00: mouth in [place] hr tablet 00 the Medical morning. Branch lisinopriL 2022-09 Yes [id number] 20mg Take 1 U nivers 20 mg 0-31 tablet by ity of tablet 00:00: mouth in [place] 00 the Medical morning. Branch furosemide 2022-09 Yes [id number] TAKE 1 U nivers 20 mg 0-31 TABLET BY ity of tablet 00:00: MOUTH [place] 00 EVERY Medical SATURDAY, Branch AND SATURDAY IN THE EVENINGS atorvastati 2022-09 Yes [id number] 40mg Take 1 Univers n 40 mg 0-31 tablet by ity of tablet 00:00: mouth at [place] 00 bedtime. Medical Branch fenofibrate 2022-09 Yes [id number] 54mg Take 1 Univers 54 mg 0-31 tablet by ity of tablet 00:00: mouth in [place] 00 the Medical morning. Branch glipiZIDE 5 2022-09 Yes [id number] 5mg Take 1 Univers mg tablet 0-31 tablet by ity o f 00:00: mouth 2 [place] 00 (two) Medical times Branch daily before breakfast and dinner. levothyroxi 2022-09 Yes [id number] 300ug Take 1 Univers ne 300 mcg 0-31 tablet by ity of tablet 00:00: mouth [place] 00 every Medical morning. Branch cloNIDine 2022-09 Yes [id number] .3mg Take 1 Un magdiel 0.3 mg 0-31 tablet by ity of tablet 00:00: mouth at [place] 00 bedtime. Medical Branch traZODone 2022-09 Yes [id number] 150mg Take 1 Univers 150 mg 0-31 105 tablet by ity of tablet 00:00: mouth at [place] 00 bedtime. Medical Branch sitaGLIPtin 2022-09 Yes [id number] 100mg Take 1 Univers phosphate 0-31 tablet by ity o f (JANUVIA) 00:00: [place] 00 the Medical tablet morning. Branch pioglitazon 2022-09 Yes [id number] 30mg Take 1 Univers e 30 mg 0-31 tablet by ity of tablet 00:00: mouth [place] 00 every Medical morning. Branch semaglutide 2022-09 Yes [id number] 1mg inject 1 Univers (OZEMPIC) 1 0-31 mg under ity of mg/dose (4 00:00: the skin [place] mg/3 mL) 00 weekly. Medical PnIj Branch metoprolol 2022-09 Yes [id number] 50mg Take 1 U nivers succinate 0-31 tablet by ity o f XL 50 mg 24 00:00: [place] in [place] hr tablet 00 the Medical morning. Branch lisinopriL 2022-09 Yes [id number] 20mg Take 1 U nivers 20 mg 0-31 tablet by ity of tablet 00:00: mouth in [place] 00 the Medical morning. Branch furosemide 2022-09 Yes [id number] TAKE 1 U nivers 20 mg 0-31 TABLET BY ity of tablet 00:00: MOUTH [place] 00 EVERY Medical SATURDAY, Branch AND SATURDAY IN THE EVENINGS atorvastati 2022-09 Yes [id number] 40mg Take 1 Univers n 40 mg 0-31 tablet by ity of tablet 00:00: mouth at [place] [address] bedtime. Medical Branch fenofibrate 2022-09 Yes [id number] 54mg Take 1 Univers 54 mg 0-31 tablet by ity of tablet 00:00: mouth in [place] 00 the Medical morning. Branch glipiZIDE 5 2022-09 Yes [id number] 5mg Take 1 Univers mg tablet 0-31 tablet by ity o f 00:00: mouth 2 [place] 00 (two) Medical times Branch daily before breakfast and dinner. levothyroxi 2022-09 Yes [id number] 300ug Take 1 Univers ne 300 mcg 0-31 tablet by ity of tablet 00:00: mouth [place] 00 every Medical morning. Branch cloNIDine 2022-09 Yes [id number] .3mg Take 1 Un magdiel 0.3 mg 0-31 tablet by ity of tablet 00:00: mouth at [place] [address] bedtime. Medical Branch traZODone 2022-09 Yes [id number] 150mg Take 1 Univers 150 mg 0-31 105 tablet by ity of tablet 00:00: mouth at [place] [address] bedtime. Medical Branch sitaGLIPtin 2022-09 Yes [id number] 100mg Take 1 Univers phosphate 0-31 tablet by ity o f (JANUVIA) 00:00: [facility] the Medical tablet morning. Branch pioglitazon 2022-09 Yes [id number] 30mg Take 1 Univers e 30 mg 0-31 tablet by ity of tablet 00:00: mouth [place] 00 every Medical morning. Branch semaglutide 2022-09 Yes [id number] 1mg inject 1 Univers (OZEMPIC) 1 0-31 mg under ity of mg/dose (4 00:00: the skin [place] mg/3 mL) 00 weekly. Medical PnIj Branch metoprolol 2022-09 Yes [id number] 50mg Take 1 U nivers succinate 0-31 tablet by ity o f XL 50 mg 24 00:00: mouth in [place] hr tablet 00 the Medical morning. Branch lisinopriL 2022-09 Yes [id number] 20mg Take 1 U nivers 20 mg 0-31 tablet by ity of tablet 00:00: mouth in [place] 00 the Medical morning. Branch furosemide 2022-09 Yes [id number] TAKE 1 U nivers 20 mg 0-31 TABLET BY ity of tablet 00:00: MOUTH [place] 00 EVERY Medical SATURDAY, Branch AND SATURDAY IN THE EVENINGS atorvastati 2022-09 Yes [id number] 40mg Take 1 Univers n 40 mg 0-31 tablet by ity of tablet 00:00: mouth at [place] [address] bedtime. Medical Branch fenofibrate 2022-09 Yes [id number] 54mg Take 1 Univers 54 mg 0-31 tablet by ity of tablet 00:00: mouth in [place] 00 the Medical morning. Branch glipiZIDE 5 2022-09 Yes [id number] 5mg Take 1 Univers mg tablet 0-31 tablet by ity o f 00:00: mouth 2 [place] 00 (two) Medical times Branch daily before breakfast and dinner. levothyroxi 2022-09 Yes [id number] 300ug Take 1 Univers ne 300 mcg 0-31 tablet by ity of tablet 00:00: mouth [place] 00 every Medical morning. Branch cloNIDine 2022-09 Yes [id number] .3mg Take 1 Un magdiel 0.3 mg 0-31 tablet by ity of tablet 00:00: mouth at [place] [address] bedtime. Medical Branch traZODone 2022-09 Yes [id number] 150mg Take 1 Univers 150 mg 0-31 105 tablet by ity of tablet 00:00: mouth at [place] [address] bedtime. Medical Branch sitaGLIPtin 2022-09 Yes [id number] 100mg Take 1 Univers phosphate 0-31 tablet by ity o f (JANUVIA) 00:00: mouth in [facility] s 100 mg 00 the Medical tablet morning. Branch pioglitazon 2022-09 Yes [id number] 30mg Take 1 Univers e 30 mg 0-31 tablet by ity of tablet 00:00: mouth [place] 00 every Medical morning. Branch semaglutide 2022-09 Yes [id number] 1mg inject 1 Univers (OZEMPIC) 1 0-31 mg under ity of mg/dose (4 00:00: the skin [place] mg/3 mL) 00 weekly. Medical PnIj Branch metoprolol 2022-09 Yes [id number] 50mg Take 1 U nivers succinate 0-31 tablet by ity o f XL 50 mg 24 00:00: [place] 00 the Medical morning. Branch lisinopriL 2022-09 Yes [id number] 20mg Take 1 U nivers 20 mg 0-31 tablet by ity of tablet 00:00: mouth in [place] 00 the Medical morning. Branch furosemide 2022-09 Yes [id number] TAKE 1 U nivers 20 mg 0-31 TABLET BY ity of tablet 00:00: MOUTH [place] 00 EVERY Medical SATURDAY, Branch AND SATURDAY IN THE EVENINGS atorvastati 2022-09 Yes [id number] 40mg Take 1 Univers n 40 mg 0-31 tablet by ity of tablet 00:00: mouth at [place] [address] bedtime. Medical Branch fenofibrate 2022-09 Yes [id number] 54mg Take 1 Univers 54 mg 0-31 tablet by ity of tablet 00:00: mouth in [place] 00 the Medical morning. Branch glipiZIDE 5 2022-09 Yes [id number] 5mg Take 1 Univers mg tablet 0-31 tablet by ity o f 00:00: mouth 2 [place] 00 (two) Medical times Branch daily before breakfast and dinner. cloNIDine 2022-09 Yes [id number] .3mg Take 1 Un magdiel 0.3 mg 0-31 tablet by ity of tablet 00:00: mouth at [place] [address] bedtime. Medical Branch traZODone 2022-09 Yes [id number] 150mg Take 1 Univers 150 mg 0-31 105 tablet by ity of tablet 00:00: mouth at [place] [address] bedtime. Medical Branch sitaGLIPtin 2022-09 Yes [id number] 100mg Take 1 Univers phosphate 0-31 tablet by ity o f (JANUVIA) 00:00: [place] 00 the Medical tablet morning. Branch pioglitazon 2022-09 Yes [id number] 30mg Take 1 Univers e 30 mg 0-31 tablet by ity of tablet 00:00: mouth [place] 00 every Medical morning. Branch semaglutide 2022-09 Yes [id number] 1mg inject 1 Univers (OZEMPIC) 1 0-31 mg under ity of mg/dose (4 00:00: the skin [place] mg/3 mL) 00 weekly. Medical PnIj Branch metoprolol 2022-09 Yes [id number] 50mg Take 1 U nivers succinate 0-31 tablet by ity o f XL 50 mg 24 00:00: mouth in [place] hr tablet 00 the Medical morning. Branch lisinopriL 2022-09 Yes [id number] 20mg Take 1 U nivers 20 mg 0-31 tablet by ity of tablet 00:00: mouth in [place] 00 the Medical morning. Branch furosemide 2022-09 Yes [id number] TAKE 1 U nivers 20 mg 0-31 TABLET BY ity of tablet 00:00: MOUTH [place] 00 EVERY Medical SATURDAY, Branch AND SATURDAY IN THE EVENINGS atorvastati 2022-09 Yes [id number] 40mg Take 1 Univers n 40 mg 0-31 tablet by ity of tablet 00:00: mouth at [place] 00 bedtime. Medical Branch fenofibrate 2022-09 Yes [id number] 54mg Take 1 Univers 54 mg 0-31 tablet by ity of tablet 00:00: mouth in [place] 00 the Medical morning. Branch glipiZIDE 5 2022-09 Yes [id number] 5mg Take 1 Univers mg tablet 0-31 tablet by ity o f 00:00: mouth 2 [place] 00 (two) Medical times Branch daily before breakfast and dinner. cloNIDine 2022-09 Yes [id number] .3mg Take 1 Un magdiel 0.3 mg 0-31 tablet by ity of tablet 00:00: mouth at [place] 00 bedtime. Medical Branch traZODone 2022-09 Yes [id number] 150mg Take 1 Univers 150 mg 0-31 105 tablet by ity of tablet 00:00: mouth at [place] 00 bedtime. Medical Branch sitaGLIPtin 2022-09 Yes [id number] 100mg Take 1 Univers phosphate 0-31 tablet by ity o f (JANUVIA) 00:00: [place] mg 00 the Medical tablet morning. Branch pioglitazon 2022-09 Yes [id number] 30mg Take 1 Univers e 30 mg 0-31 tablet by ity of tablet 00:00: mouth [place] 00 every Medical morning. Branch semaglutide 2022-09 Yes [id number] 1mg inject 1 Univers (OZEMPIC) 1 0-31 mg under ity of mg/dose (4 00:00: the skin [place] mg/3 mL) 00 weekly. Medical PnIj Branch metoprolol 2022-09 Yes [id number] 50mg Take 1 U nivers succinate 0-31 tablet by ity o f XL 50 mg 24 00:00: [place] hr tablet 00 the Medical morning. Branch lisinopriL 2022-09 Yes [id number] 20mg Take 1 U nivers 20 mg 0-31 tablet by ity of tablet 00:00: mouth in [place] 00 the Medical morning. Branch furosemide 2022-09 Yes [id number] TAKE 1 U nivers 20 mg 0-31 TABLET BY ity of tablet 00:00: MOUTH [place] 00 EVERY Medical SATURDAY, Branch AND SATURDAY IN THE EVENINGS atorvastati 2022-09 Yes [id number] 40mg Take 1 Univers n 40 mg 0-31 tablet by ity of tablet 00:00: mouth at [place] 00 bedtime. Medical Branch fenofibrate 2022-09 Yes [id number] 54mg Take 1 Univers 54 mg 0-31 tablet by ity of tablet 00:00: mouth in [place] 00 the Medical morning. Branch glipiZIDE 5 2022-09 Yes [id number] 5mg Take 1 Univers mg tablet 0-31 tablet by ity o f 00:00: mouth 2 [place] 00 (two) Medical times Branch daily before breakfast and dinner. cloNIDine 2022-09 Yes [id number] .3mg Take 1 Un magdiel 0.3 mg 0-31 tablet by ity of tablet 00:00: mouth at [place] 00 bedtime. Medical Branch traZODone 2022-09 Yes [id number] 150mg Take 1 Univers 150 mg 0-31 105 tablet by ity of tablet 00:00: mouth at [place] 00 bedtime. Medical Branch levothyroxi 2022-09- No [id number] 300ug Take 1 Univers ne 300 mcg 0-31 11-04 tablet by ity of tablet 00:00: 00:00 mouth [place] 00 :00 every Medical morning. Branch OZEMPIC 2022- Yes [id number] 1mg INJECT 1 Univers mg/dose (4 9-29 11-29 MG UNDER ity of mg/3 mL) 00:00: 05:59 [place] PnIj 00 :00 WEEKLY FOR Medical 60 DAYS. Branch OZEMPIC 2022- Yes [id number] 1mg INJECT 1 Univers mg/dose (4 9-29 11-29 MG UNDER ity of mg/3 mL) 00:00: 05:59 [place] PnIj 00 :00 WEEKLY FOR Medical 60 DAYS. Branch OZEMPIC 2022- No [id number] 1mg INJECT 1 Univers mg/dose (4 9-29 10-31 MG UNDER ity of mg/3 mL) 00:00: 00:[place] PnIj 00 :00 WEEKLY FOR Medical 60 DAYS. Branch OZEMPIC 1 2022- No [id number] 1mg INJECT 1 Univers mg/dose (4 9-29 10-31 MG UNDER ity of mg/3 mL) 00:00: 00:[place] PnIj 00 :00 WEEKLY FOR Medical 60 DAYS. Branch ondansetron 2022-0 Yes [id number] 4mg Take 1 Univers 4 mg tablet 9-13 tablet by ity of 00:00: mouth [place] 00 every 8 Medical (eight) Branch hours as needed for Nausea and Vomiting (N/V). ondansetron 2022-0 Yes [id number] 4mg Take 1 Univers 4 mg tablet 9-13 tablet by ity of 00:00: mouth [place] 00 every 8 Medical (eight) Branch hours as needed for Nausea and Vomiting (N/V). ondansetron 3-0 Yes [id number] 4mg Take 1 Univers 4 mg tablet 9-13 tablet by ity of 00:00: mouth [place] 00 every 8 Medical (eight) Branch hours as needed for Nausea and Vomiting (N/V). ondansetron 3-0 Yes [id number] 4mg Take 1 Univers 4 mg tablet 9-13 tablet by ity of 00:00: mouth [place] 00 every 8 Medical (eight) Branch hours as needed for Nausea and Vomiting (N/V). ondansetron 3-0 Yes [id number] 4mg Take 1 Univers 4 mg tablet 9-13 tablet by ity of 00:00: mouth [place] 00 every 8 Medical (eight) Branch hours as needed for Nausea and Vomiting (N/V). ondansetron 2023-0 Yes [id number] 4mg Take 1 Univers 4 mg tablet 9-13 tablet by ity of 00:00: mouth [place] 00 every 8 Medical (eight) Branch hours as needed for Nausea and Vomiting (N/V). ondansetron 2023-0 Yes [id number] 4mg Take 1 [facility] 4 mg tablet 9-13 tablet by ity of 00:00: mouth [place] 00 every 8 Medical (eight) Branch hours as needed for Nausea and Vomiting (N/V). ondansetron 2022-0 Yes [id number] 4mg Take 1 [facility] 4 mg tablet 9-13 tablet by ity of 00:00: mouth [place] 00 every 8 Medical (eight) Branch hours as needed for Nausea and Vomiting (N/V). ondansetron 2022-0 2023- No [id number] 4mg Take 1 [facility] 4 mg tablet 9-13 11-27 tablet by it y of 00:00: 00:00 mouth [place] 00 :00 every 8 Medical (eight) Branch hours as needed for Nausea and Vomiting (N/V). MIRTAZAPINE 2022-0 Yes [id number] TAKE 1 [facility] 15 mg 7-25 TABLET BY ity of tablet 00:00: MOUTH [place] 00 EVERYDAY Medical AT BEDTIME Branch semaglutide 2022-0 Yes [id number] .5mg inject 0.5 [facility] (OZEMPIC) 7-25 mg under ity of 0.25 mg or 00:00: the skin [place] 0.5 mg (2 00 weekly. Medical mg/3 mL) Branch PnIj MIRTAZAPINE 2022-0 Yes [id number] TAKE 1 [facility] 15 mg 7-25 TABLET BY ity of tablet 00:00: MOUTH [place] 00 EVERYDAY Medical AT BEDTIME Branch semaglutide 2022-0 Yes [id number] .5mg inject 0.5 [facility] (OZEMPIC) 7-25 mg under ity of 0.25 mg or 00:00: the skin [place] 0.5 mg (2 00 weekly. Medical mg/3 mL) Branch PnIj MIRTAZAPINE 2022-0 Yes [id number] TAKE 1 [facility] 15 mg 7-25 TABLET BY ity of tablet 00:00: MOUTH [place] 00 EVERYDAY Medical AT BEDTIME Branch semaglutide 2022-0 Yes [id number] .5mg inject 0.5 [facility] (OZEMPIC) 7-25 mg under ity of 0.25 mg or 00:00: the skin [place] 0.5 mg (2 00 weekly. Medical mg/3 mL) Branch PnIj MIRTAZAPINE 2022-0 Yes [id number] TAKE 1 [facility] 15 mg 7-25 TABLET BY ity of tablet 00:00: MOUTH [place] 00 EVERYDAY Medical AT BEDTIME Branch MIRTAZAPINE 2022-0 Yes [id number] TAKE 1 [facility] 15 mg 7-25 TABLET BY ity of tablet 00:00: MOUTH [place] 00 EVERYDAY Medical AT BEDTIME Branch MIRTAZAPINE 2022-0 Yes [id number] TAKE 1 [facility] 15 mg 7-25 TABLET BY ity of tablet 00:00: MOUTH 00 EVERYDAY Medical AT BEDTIME Branch MIRTAZAPINE 2022-0 Yes [id number] TAKE 1 [facility] 15 mg 7-25 TABLET BY ity of tablet 00:00: MOUTH 00 EVERYDAY Medical AT BEDTIME Branch MIRTAZAPINE 2022-0 Yes [id number] TAKE 1 [facility] 15 mg 7-25 TABLET BY ity of tablet 00:00: MOUTH 00 EVERYDAY Medical AT BEDTIME Branch MIRTAZAPINE 2022-0 Yes [id number] TAKE 1 [facility] 15 mg 7-25 TABLET BY ity of tablet 00:00: MOUTH 00 EVERYDAY Medical AT BEDTIME Branch MIRTAZAPINE 2022-0 Yes [id number] TAKE 1 [facility] 15 mg 7-25 TABLET BY ity of tablet 00:00: MOUTH EVERYDAY Medical AT BEDTIME Branch MIRTAZAPINE 2022-0 Yes [id number] TAKE 1 [facility] 15 mg 7-25 TABLET BY ity of tablet 00:00: MOUTH EVERYDAY Medical AT BEDTIME Branch MIRTAZAPINE 2022-0 Yes [id number] TAKE 1 [facility] 15 mg 7-25 TABLET BY ity of tablet 00:00: MOUTH EVERYDAY Medical AT BEDTIME Branch semaglutide 2022-0 2022- No [id number] .5mg inject 0.5 [facility] (OZEMPIC) 7-25 09-29 mg under ity o f 0.25 mg or 00:00: 00:00 the skin [place] 0.5 mg (2 00 :00 weekly. Medical mg/3 mL) Branch PnIj GLIPIZIDE 5 2022-0 Yes [id number] 5mg TAKE 1 [facility] mg tablet 7-24 TABLET BY ity o f 00:00: MOUTH (TWO) Medical TIMES Branch DAILY BEFORE BREAKFAST AND DINNER. PIOGLITAZON 2022-0 Yes [id number] TAKE 1 [facility] E 30 mg 7-24 TABLET BY ity of tablet 00:00: MOUTH 00 EVERY DAY Medical IN THE Branch MORNING GLIPIZIDE 5 2022-0 Yes [id number] 5mg TAKE 1 [facility] mg tablet 7-24 TABLET BY ity o f 00:00: MOUTH 2 (TWO) Medical TIMES Branch DAILY BEFORE BREAKFAST AND DINNER. PIOGLITAZON 2022-0 Yes [id number] TAKE 1 [facility] E 30 mg 7-24 TABLET BY ity of tablet 00:00: MOUTH [place] 00 EVERY DAY Medical IN THE [place] MORNING GLIPIZIDE 5 2022-0 Yes [id number] 5mg TAKE 1 [facility] mg tablet 7-24 TABLET BY ity o f 00:00: MOUTH 2 [place] (TWO) Medical TIMES [place] DAILY BEFORE BREAKFAST AND DINNER. PIOGLITAZON 2022-0 Yes [id number] TAKE 1 [facility] E 30 mg 7-24 TABLET BY ity of tablet 00:00: MOUTH [place] 00 EVERY DAY Medical IN THE [place] MORNING GLIPIZIDE 5 2022-0 Yes [id number] 5mg TAKE 1 [facility] mg tablet 7-24 TABLET BY ity o f 00:00: MOUTH 2 [place] (TWO) Medical TIMES [place] DAILY BEFORE BREAKFAST AND DINNER. PIOGLITAZON 2022-0 Yes [id number] TAKE 1 [facility] E 30 mg 7-24 TABLET BY ity of tablet 00:00: MOUTH [place] 00 EVERY DAY Medical IN THE [place] MORNING GLIPIZIDE 5 2022-0 Yes [id number] 5mg TAKE 1 [facility] mg tablet 7-24 TABLET BY ity o f 00:00: MOUTH 2 [place] (TWO) Medical TIMES [place] DAILY BEFORE BREAKFAST AND DINNER. PIOGLITAZON 2022-0 Yes [id number] TAKE 1 [facility] E 30 mg 7-24 TABLET BY ity of tablet 00:00: MOUTH [place] 00 EVERY DAY Medical IN THE [place] MORNING GLIPIZIDE 5 2022-0 Yes [id number] 5mg TAKE 1 [facility] mg tablet 7-24 TABLET BY ity o f 00:00: MOUTH 2 [place] (TWO) Medical TIMES [place] DAILY BEFORE BREAKFAST AND DINNER. PIOGLITAZON 2022-0 Yes [id number] TAKE 1 [facility] E 30 mg 7-24 TABLET BY ity of tablet 00:00: MOUTH [place] 00 EVERY DAY Medical IN THE [place] MORNING GLIPIZIDE 5 2022-0 2022- No [id number] 5mg TAKE 1 [facility] mg tablet 7-24 10-31 TABLET BY ity of 00:00: 00:00 MOUTH 2 [place] 00 :00 (TWO) Medical TIMES [place] DAILY BEFORE BREAKFAST AND DINNER. PIOGLITAZON 2022-0 3- No [id number] TAKE 1 [facility] E 30 mg 7-24 10-31 TABLET BY ity of tablet 00:00: 00:00 MOUTH [place] 00 :00 EVERY DAY Medical IN THE [place] MORNING GLIPIZIDE 5 2022- No [id number] 5mg TAKE 1 [facility] mg tablet 7-24 -31 TABLET BY ity of 00:00: 00:00 MOUTH 2 [place] 00 :00 (TWO) Medical TIMES [place] DAILY BEFORE BREAKFAST AND DINNER. PIOGLITAZON 2022-0 2022- No [id number] TAKE 1 [facility] E 30 mg 7-24 10-31 TABLET BY ity of tablet 00:00: 00:00 MOUTH [place] 00 :00 EVERY DAY Medical IN THE [place] MORNING lisinopriL 2022-0 Yes [id number] 20mg Take 1 [facility] 20 mg 6-12 tablet by ity of tablet 00:00: mouth in [place] the Medical morning. [place] lisinopriL 2022-0 Yes [id number] 20mg Take 1 [facility] nivers 20 mg 6-12 tablet by ity of tablet 00:00: mouth in [place] the Medical morning. [place] lisinopriL 2022-0 Yes [id number] 20mg Take 1 U nivers 20 mg 6-12 tablet by ity of tablet 00:00: mouth in [place] the Medical morning. [place] lisinopriL 2022-0 Yes [id number] 20mg Take 1 [facility] nivers 20 mg 6-12 tablet by ity of tablet 00:00: mouth in [place] the Medical morning. [place] lisinopriL 2022-0 Yes [id number] 20mg Take 1 U nivers 20 mg 6-12 tablet by ity of tablet 00:00: mouth in [place] the Medical morning. [place] lisinopriL 2022-0 Yes [id number] 20mg Take 1 [facility] nivers 20 mg 6-12 tablet by ity of tablet 00:00: mouth in [place] 00 the Medical morning. [place] lisinopriL 2022-0 Yes [id number] 20mg Take 1 U nivers 20 mg 6-12 tablet by ity of tablet 00:00: mouth in [place] 00 the Medical morning. [place] lisinopriL 2022-0 Yes [id number] 20mg Take 1 [facility] nivers 20 mg 6-12 tablet by ity of tablet 00:00: mouth in [place] 00 the Medical morning. [place] lisinopriL 2022-0 2022- No [id number] 20mg Take 1 [facility] 20 mg 6-12 10-31 tablet by ity of tablet 00:00: 00:00 mouth in [place] 00 :00 the Medical morning. Branch lisinopriL 2022- No [id number] 20mg Take 1 [facility] 20 mg 6-12 10-31 tablet by ity of tablet 00:00: 00:00 mouth in [place] 00 :00 the Medical morning. Branch OZEMPIC Yes [id number] INJECT [facility] ers 0.25 mg or 6-09 0.25 MG ity of 0.5 mg (2 00:00: UNDER THE [place] mg/3 mL) 00 SKIN Medical PnIj WEEKLY FOR Branch 30 DAYS. OZEMPIC Yes [id number] INJECT [facility] ers 0.25 mg or 6-09 0.25 MG ity of 0.5 mg (2 00:00: UNDER THE [place] mg/3 mL) 00 SKIN Medical PnIj WEEKLY FOR Branch 30 DAYS. OZEMPIC Yes [id number] INJECT [facility] 0.25 mg or 6-09 0.25 MG ity of 0.5 mg (2 00:00: UNDER THE [place] mg/3 mL) 00 SKIN Medical PnIj WEEKLY FOR Branch 30 DAYS. OZEMPIC 2022- No [id number] INJECT [facility] vers 0.25 mg or 6-09 07-24 0.25 MG ity o f 0.5 mg (2 00:00: 00:00 UNDER THE [place] mg/3 mL) 00 :00 SKIN Medical PnIj WEEKLY FOR Branch 30 DAYS. furosemide 2022-0 Yes [id number] TAKE 1 [facility] nivers 20 mg 6-08 TABLET BY ity of tablet 00:00: MOUTH [place] 00 EVERY Medical SATURDAY, Branch AND SATURDAY IN THE EVENINGS fenofibrate 2022-0 Yes [id number] 54mg Take 1 [facility] 54 mg 6-08 tablet by ity of tablet 00:00: mouth in [place] 00 the Medical morning. Branch atorvastati Yes [id number] 40mg Take 1 [facility] n 40 mg 6-08 tablet by ity of tablet 00:00: mouth at [place] 00 bedtime. Medical Branch furosemide 2022-0 Yes [id number] TAKE 1 [facility] nivers 20 mg 6-08 TABLET BY ity of tablet 00:00: MOUTH [place] 00 EVERY Medical SATURDAY, Branch AND SATURDAY IN THE EVENINGS fenofibrate 3-0 Yes [id number] 54mg Take 1 [facility] 54 mg 6-08 tablet by ity of tablet 00:00: mouth in [place] 00 the Medical morning. Branch atorvastati 2022-0 Yes [id number] 40mg Take 1 [facility] n 40 mg 6-08 tablet by ity of tablet 00:00: mouth at [place] 00 bedtime. Medical Branch furosemide 2022-0 Yes [id number] TAKE 1 [facility] nivers 20 mg 6-08 TABLET BY ity of tablet 00:00: MOUTH [place] 00 EVERY Medical SATURDAY, Branch AND SATURDAY IN THE EVENINGS fenofibrate 2022-0 Yes [id number] 54mg Take 1 [facility] 54 mg 6-08 tablet by ity of tablet 00:00: mouth in [place] 00 the Medical morning. Branch atorvastati 2022-0 Yes [id number] 40mg Take 1 [facility] n 40 mg 6-08 tablet by ity of tablet 00:00: mouth at [place] 00 bedtime. Medical Branch furosemide 2022-0 Yes [id number] TAKE 1 [facility] nivers 20 mg 6-08 TABLET BY ity of tablet 00:00: MOUTH [place] 00 EVERY Medical SATURDAY, Branch AND SATURDAY IN THE EVENINGS fenofibrate 3-0 Yes [id number] 54mg Take 1 [facility] 54 mg 6-08 tablet by ity of tablet 00:00: mouth in [place] 00 the Medical morning. Branch atorvastati 2022-0 Yes [id number] 40mg Take 1 [facility] n 40 mg 6-08 tablet by ity of tablet 00:00: mouth at [place] 00 bedtime. Medical Branch furosemide 3-0 Yes [id number] TAKE 1 [facility] nivers 20 mg 6-08 TABLET BY ity of tablet 00:00: MOUTH [place] 00 EVERY Medical SATURDAY, Branch AND SATURDAY IN THE EVENINGS fenofibrate 3-0 Yes [id number] 54mg Take 1 [facility] 54 mg 6-08 tablet by ity of tablet 00:00: mouth in [place] 00 the Medical morning. Branch atorvastati 3-0 Yes [id number] 40mg Take 1 [facility] n 40 mg 6-08 tablet by ity of tablet 00:00: mouth at [place] 00 bedtime. Medical Branch furosemide 2023-0 Yes [id number] TAKE 1 [facility] nivers 20 mg 6-08 TABLET BY ity of tablet 00:00: MOUTH [place] 00 EVERY Medical SATURDAY, Branch AND SATURDAY IN THE EVENINGS fenofibrate 2022-0 Yes [id number] 54mg Take 1 [facility] 54 mg 6-08 tablet by ity of tablet 00:00: mouth in [place] 00 the Medical morning. Branch atorvastati 2022-0 Yes [id number] 40mg Take 1 [facility] n 40 mg 6-08 tablet by ity of tablet 00:00: mouth at [place] 00 bedtime. Medical Branch furosemide 2022-0 Yes [id number] TAKE 1 [facility] nivers 20 mg 6-08 TABLET BY ity of tablet 00:00: MOUTH [place] 00 EVERY Medical SATURDAY, Branch AND SATURDAY IN THE EVENINGS fenofibrate 2022-0 Yes [id number] 54mg Take 1 [facility] 54 mg 6-08 tablet by ity of tablet 00:00: mouth in [place] 00 the Medical morning. Branch atorvastati 2022-0 Yes [id number] 40mg Take 1 [facility] n 40 mg 6-08 tablet by ity of tablet 00:00: mouth at [place] 00 bedtime. Medical Branch furosemide 2022-0 Yes [id number] TAKE 1 [facility] nivers 20 mg 6-08 TABLET BY ity of tablet 00:00: MOUTH [place] 00 EVERY Medical SATURDAY, Branch AND SATURDAY IN THE EVENINGS fenofibrate 2022-0 Yes [id number] 54mg Take 1 [facility] 54 mg 6-08 tablet by ity of tablet 00:00: mouth in [place] 00 the Medical morning. Branch atorvastati 2022-0 Yes [id number] 40mg Take 1 [facility] n 40 mg 6-08 tablet by ity of tablet 00:00: mouth at [place] 00 bedtime. Medical Branch furosemide 2022-0 Yes [id number] TAKE 1 [facility] nivers 20 mg 6-08 TABLET BY ity of tablet 00:00: MOUTH [place] 00 EVERY Medical SATURDAY, Branch AND SATURDAY IN THE EVENINGS fenofibrate 2022-0 Yes [id number] 54mg Take 1 [facility] 54 mg 6-08 tablet by ity of tablet 00:00: mouth in [place] 00 the Medical morning. Branch atorvastati 2022-0 Yes [id number] 40mg Take 1 [facility] n 40 mg 6-08 tablet by ity of tablet 00:00: mouth at [place] 00 bedtime. Medical Branch furosemide 2022-0 Yes [id number] TAKE 1 [facility] nivers 20 mg 6-08 TABLET BY ity of tablet 00:00: MOUTH [place] 00 EVERY Medical SATURDAY, Branch AND SATURDAY IN THE EVENINGS fenofibrate 2022-0 Yes [id number] 54mg Take 1 [facility] 54 mg 6-08 tablet by ity of tablet 00:00: mouth in [place] 00 the Medical morning. Branch atorvastati 0 Yes [id number] 40mg Take 1 [facility] n 40 mg 6-08 tablet by ity of tablet 00:00: mouth at [place] 00 bedtime. Medical Branch furosemide 2022-0 Yes [id number] TAKE 1 [facility] nivers 20 mg 6-08 TABLET BY ity of tablet 00:00: MOUTH [place] 00 EVERY Medical SATURDAY, Branch AND SATURDAY IN THE EVENINGS fenofibrate 2022-0 Yes [id number] 54mg Take 1 [facility] 54 mg 6-08 tablet by ity of tablet 00:00: mouth in [place] 00 the Medical morning. Branch atorvastati Yes [id number] 40mg Take 1 [facility] n 40 mg 6-08 tablet by ity of tablet 00:00: mouth at [place] 00 bedtime. Medical Branch furosemide 2022- No [id number] TAKE 1 [facility] 20 mg 6-08 10-31 TABLET BY ity of tablet 00:00: 00:00 MOUTH [place] 00 :00 EVERY Medical SATURDAY, Branch AND SATURDAY IN THE EVENINGS fenofibrate 2022-0 2022- No [id number] 54mg Take 1 [facility] 54 mg 6-08 10-31 tablet by ity of tablet 00:00: 00:00 mouth in [place] 00 :00 the Medical morning. Branch atorvastati 2022-0 2022- No [id number] 40mg Take 1 [facility] n 40 mg 6-08 10-31 tablet by ity of tablet 00:00: 00:00 mouth at [place] 00 :00 bedtime. Medical Branch furosemide 2022-0 2022- No [id number] TAKE 1 [facility] 20 mg 6-08 10-31 TABLET BY ity of tablet 00:00: 00:00 MOUTH [place] 00 :00 EVERY Medical SATURDAY, Branch AND SATURDAY IN THE EVENINGS fenofibrate 2022-0 2022- No [id number] 54mg Take 1 [facility] 54 mg 02-28 tablet by ity of tablet 00:00: 00:00 mouth in [place] 00 :00 the Medical morning. Branch atorvastati 2022-0 2022- No [id number] 40mg Take 1 [facility] n 40 mg -07-23 tablet by ity of tablet 00:00: 00:00 mouth at [place] 00 :00 bedtime. Medical Branch levothyroxi 2022-0 Yes [id number] 300ug Take 1 [facility] ne 300 mcg 6-07 tablet by ity of tablet 00:00: mouth [place] 00 every Medical morning. Branch levothyroxi 2022-0 Yes [id number] 300ug Take 1 [facility] ne 300 mcg 6-07 tablet by ity of tablet 00:00: mouth [place] 00 every Medical morning. Branch levothyroxi 2022-0 Yes [id number] 300ug Take 1 [facility] ne 300 mcg 6-07 tablet by ity of tablet 00:00: mouth [place] 00 every Medical morning. Branch levothyroxi 2022-0 Yes [id number] 300ug Take 1 [facility] ne 300 mcg 6-07 tablet by ity of tablet 00:00: mouth [place] 00 every Medical morning. Branch levothyroxi 2022-0 Yes [id number] 300ug Take 1 [facility] ne 300 mcg 6-07 tablet by ity of tablet 00:00: mouth [place] 00 every Medical morning. Branch levothyroxi 2022-0 Yes [id number] 300ug Take 1 [facility] ne 300 mcg 6-07 tablet by ity of tablet 00:00: mouth [place] 00 every Medical morning. Branch levothyroxi 2022-0 Yes [id number] 300ug Take 1 [facility] ne 300 mcg 6-07 tablet by ity of tablet 00:00: mouth [place] 00 every Medical morning. Branch levothyroxi 2022-0 Yes [id number] 300ug Take 1 [facility] ne 300 mcg 6-07 tablet by ity of tablet 00:00: mouth [place] 00 every Medical morning. Branch levothyroxi 2022-0 Yes [id number] 300ug Take 1 [facility] ne 300 mcg 6-07 tablet by ity of tablet 00:00: mouth [place] 00 every Medical morning. Branch levothyroxi 2022-0 Yes [id number] 300ug Take 1 [facility] ne 300 mcg 6-07 tablet by ity of tablet 00:00: mouth [place] 00 every Medical morning. Branch levothyroxi 2022-0 Yes [id number] 300ug Take 1 [facility] ne 300 mcg 6-07 tablet by ity of tablet 00:00: mouth [place] 00 every Medical morning. Branch levothyroxi 2022-0 Yes [id number] 300ug Take 1 [facility] ne 300 mcg 6-07 tablet by ity of tablet 00:00: mouth [place] 00 every Medical morning. Branch levothyroxi 2022-0 Yes [id number] 300ug Take 1 [facility] ne 300 mcg 6-07 tablet by ity of tablet 00:00: mouth [place] 00 every Medical morning. Branch levothyroxi 2022-0 2022- No [id number] 300ug Take 1 [facility] ne 300 mcg 6-07 10-31 tablet by ity of tablet 00:00: 00:00 mouth [place] 00 :00 every Medical morning. Branch levothyroxi 2022-0 3- No [id number] 300ug Take 1 [facility] ne 300 mcg 6-07 10-31 tablet by ity of tablet 00:00: 00:00 mouth [place] 00 :00 every Medical morning. Branch FUROSEMIDE 2022-0 Yes [id number] TAKE 1 [facility] 20 mg 5-08 TABLET BY ity of tablet 00:00: MOUTH [place] 00 EVERY Medical SATURDAY, Branch AND SATURDAY IN THE EVENINGS FUROSEMIDE 2022-0 Yes [id number] TAKE 1 [facility] 20 mg 5-08 TABLET BY ity of tablet 00:00: MOUTH [place] 00 EVERY Medical SATURDAY, Branch AND SATURDAY IN THE EVENINGS FUROSEMIDE 2022-0 Yes [id number] TAKE 1 [facility] 20 mg 5-08 TABLET BY ity of tablet 00:00: MOUTH [place] 00 EVERY Medical SATURDAY, Branch AND SATURDAY IN THE EVENINGS FUROSEMIDE 2022-0 Yes [id number] TAKE 1 [facility] 20 mg 5-08 TABLET BY ity of tablet 00:00: MOUTH [place] 00 EVERY Medical SATURDAY, Branch AND SATURDAY IN THE EVENINGS FUROSEMIDE 2022-0 2023- No [id number] TAKE 1 [facility] 20 mg 5-08 06-08 TABLET BY ity of tablet 00:00: 00:00 MOUTH [place] 00 :00 EVERY Medical SATURDAY, Branch AND SATURDAY IN THE EVENINGS FUROSEMIDE 2023-0 2023- No [id number] TAKE 1 [facility] 20 mg 5-08 06-08 TABLET BY ity of tablet 00:00: 00:00 MOUTH [place] 00 :00 EVERY Medical SATURDAY, Branch AND SATURDAY IN THE EVENINGS ondansetron 2023-0 Yes 4mg Take 1 [facility] ers 4 mg tablet 5-04 tablet by ity of 00:00: mouth [place] 00 every 8 Medical (eight) Branch hours as needed for Nausea and Vomiting (N/V). ondansetron 2023-0 Yes 4mg Take 1 [facility] ers 4 mg tablet 5-04 tablet by ity of 00:00: mouth [place] 00 every 8 Medical (eight) Branch hours as needed for Nausea and Vomiting (N/V). ondansetron 2023-0 Yes 4mg Take 1 [facility] ers 4 mg tablet 5-04 tablet by ity of 00:00: mouth [place] 00 every 8 Medical (eight) Branch hours as needed for Nausea and Vomiting (N/V). ondansetron 2023-0 Yes 4mg Take 1 [facility] ers 4 mg tablet 5-04 tablet by ity of 00:00: mouth [place] 00 every 8 Medical (eight) Branch hours as needed for Nausea and Vomiting (N/V). ondansetron 2023-0 Yes 4mg Take 1 [facility] ers 4 mg tablet 5-04 tablet by ity of 00:00: mouth [place] 00 every 8 Medical (eight) Branch hours as needed for Nausea and Vomiting (N/V). ondansetron 2023-0 Yes 4mg Take 1 [facility] ers 4 mg tablet 5-04 tablet by ity of 00:00: mouth [place] 00 every 8 Medical (eight) Branch hours as needed for Nausea and Vomiting (N/V). ondansetron 2023-0 Yes 4mg Take 1 [facility] ers 4 mg tablet 5-04 tablet by ity of 00:00: mouth [place] 00 every 8 Medical (eight) Branch hours as needed for Nausea and Vomiting (N/V). ondansetron 2023-0 Yes 4mg Take 1 [facility] ers 4 mg tablet 5-04 tablet by ity of 00:00: mouth [place] 00 every 8 Medical (eight) Branch hours as needed for Nausea and Vomiting (N/V). ondansetron 2023-0 Yes 4mg Take 1 [facility] ers 4 mg tablet 5-04 tablet by ity of 00:00: mouth [place] 00 every 8 Medical (eight) Branch hours as needed for Nausea and Vomiting (N/V). ondansetron 2023-0 Yes 4mg Take 1 [facility] ers 4 mg tablet 5-04 tablet by ity of 00:00: mouth [place] 00 every 8 Medical (eight) Branch hours as needed for Nausea and Vomiting (N/V). ondansetron 2023-0 Yes 4mg Take 1 [facility] ers 4 mg tablet 5-04 tablet by ity of 00:00: mouth [place] 00 every 8 Medical (eight) Branch hours as needed for Nausea and Vomiting (N/V). ondansetron 2023-0 Yes 4mg Take 1 [facility] ers 4 mg tablet 5-04 tablet by ity of 00:00: mouth [place] 00 every 8 Medical (eight) Branch hours as needed for Nausea and Vomiting (N/V). ondansetron 2023-0 Yes 4mg Take 1 [facility] ers 4 mg tablet 5-04 tablet by ity of 00:00: mouth [place] 00 every 8 Medical (eight) Branch hours as needed for Nausea and Vomiting (N/V). ondansetron 2023-0 2023- No 4mg Take 1 [facility] vers 4 mg tablet 5-04 09-12 tablet by it y of 00:00: 00:00 mouth [place] 00 :00 every 8 Medical (eight) Branch hours as needed for Nausea and Vomiting (N/V). OZEMPIC 2022-0 3- No [id number] .25mg INJECT Un magdiel 0.25 mg or 5-01 - 0.25 MG ity o f 0.5 mg(2 00:00: 04:59 UNDER THE [place] mg/1.5 mL) 00 :00 SKIN Medical PnIj WEEKLY FOR Branch 30 DAYS. OZEMPIC 2023-0 2023- No [id number] .25mg INJECT Un [place] 0.25 mg or 5-01 06-01 0.25 MG ity o f 0.5 mg(2 00:00: 04:59 UNDER THE [place] mg/1.5 mL) 00 :00 SKIN Medical PnIj WEEKLY FOR Branch 30 DAYS. OZEMPIC 3-0 2023- No [id number] .25mg INJECT Un [place] 0.25 mg or 5- 06-01 0.25 MG ity o f 0.5 mg(2 00:00: 04:59 UNDER THE [place] mg/1.5 mL) 00 :00 SKIN Medical PnIj WEEKLY FOR Branch 30 DAYS. OZEMPIC 2022- No [id number] .25mg INJECT Un [place] 0.25 mg or 5- 06-01 0.25 MG ity o f 0.5 mg(2 00:00: 04:59 UNDER THE [place] mg/1.5 mL) 00 :00 SKIN Medical PnIj WEEKLY FOR Branch 30 DAYS. OZEMPIC 2022-0 2022- No [id number] .25mg INJECT Un [place] 0.25 mg or 5- 06- 0.25 MG ity o f 0.5 mg(2 00:00: 04:59 UNDER THE [place] mg/1.5 mL) 00 :00 SKIN Medical PnIj WEEKLY FOR Branch 30 DAYS. semaglutide 2022-2022- No [id number] 1mg inject 1 [facility] (OZEMPIC) 1 3-31 05-31 mg under ity of mg/dose (4 00:00: 04:59 the skin [place] mg/3 mL) 00 :00 weekly for Medic al PnIj 60 days. Branch semaglutide 2022- No [id number] 1mg inject 1 [facility] (OZEMPIC) 1 3-31 05-31 mg under ity of mg/dose (4 00:00: 04:59 the skin [place] mg/3 mL) 00 :00 weekly for Medic al PnIj 60 days. Branch semaglutide 2022- No [id number] 1mg inject 1 [facility] (OZEMPIC) 1 3-31 05-31 mg under ity of mg/dose (4 00:00: 04:59 the skin [place] mg/3 mL) 00 :00 weekly for Medic al PnIj 60 days. Branch semaglutide 2022- No [id number] 1mg inject 1 [facility] (OZEMPIC) 1 3-31 05-31 mg under ity of mg/dose (4 00:00: 04:59 the skin [place] mg/3 mL) 00 :00 weekly for Medic al PnIj 60 days. Branch semaglutide 3- No [id number] 1mg inject 1 [facility] (OZEMPIC) 1 3-31 05-31 mg under ity of mg/dose (4 00:00: 04:59 the skin [place] mg/3 mL) 00 :00 weekly for Medic al PnIj 60 days. Branch semaglutide 2022-0 3- No [id number] 1mg inject 1 [facility] (OZEMPIC) 1 3-31 05-31 mg under ity of mg/dose (4 00:00: 04:59 the skin [place] mg/3 mL) 00 :00 weekly for Medic al PnIj 60 days. Branch semaglutide 2022-0 3- No [id number] 1mg inject 1 [facility] (OZEMPIC) 1 3-31 05-31 mg under ity of mg/dose (4 00:00: 04:59 the skin [place] mg/3 mL) 00 :00 weekly for Medic al PnIj 60 days. Branch semaglutide 2022-0 2022- No [id number] 1mg inject 1 [facility] (OZEMPIC) 1 3-31 05-31 mg under ity of mg/dose (4 00:00: 04:59 the skin [place] mg/3 mL) 00 :00 weekly for Medic al PnIj 60 days. Branch semaglutide 2022-0 3- No [id number] .25mg inject [facility] (OZEMPIC) - 05-01 0.25 mg ity of 0.25 mg or 00:00: 04:59 under the [place] 0.5 mg(2 00 :00 skin Medical mg/1.5 mL) weekly for Bra nch PnIj 30 days. semaglutide 2022-0 3- No [id number] .5mg inject 0.5 [facility] (OZEMPIC) 3- 05-01 mg under ity o f 0.25 mg or 00:00: 04:59 the skin [place] 0.5 mg(2 00 :00 weekly for Medic al mg/1.5 mL) 30 days. Branc h PnIj semaglutide 2022-0 3- No [id number] .25mg inject [facility] (OZEMPIC) - 05-01 0.25 mg ity of 0.25 mg or 00:00: 04:59 under the [place] 0.5 mg(2 00 :00 skin Medical mg/1.5 mL) weekly for Bra [facility] PnIj 30 days. semaglutide 2023-0 2023- No [id number] .5mg inject 0.5 [facility] (OZEMPIC) 12-21 05-01 mg under ity o f 0.25 mg or 00:00: 04:59 the skin [place] 0.5 mg(2 00 :00 weekly for Medic al mg/1.5 mL) 30 days. [facility] PnIj semaglutide 3-0 2023- No [id number] .25mg inject [facility] (OZEMPIC) 12-21 0.25 mg ity of 0.25 mg or 00:00: 00:00 under the [place] 0.5 mg(2 00 :00 skin Medical mg/1.5 mL) weekly for Bra [facility] PnIj 30 days. semaglutide 3-0 2023- No [id number] .25mg inject [facility] (OZEMPIC) 12-21 0.25 mg ity of 0.25 mg or 00:00: 00:00 under the [place] 0.5 mg(2 00 :00 skin Medical mg/1.5 mL) weekly for Bra [facility] PnIj 30 days. semaglutide 2023-0 2023- No [id number] .5mg inject 0.5 [facility] (OZEMPIC) 12-21 mg under ity o f 0.25 mg or 00:00: 04:59 the skin [place] 0.5 mg(2 00 :00 weekly for Medic al mg/1.5 mL) 30 days. [facility] PnIj ondansetron 2023-0 Yes 4mg Take 1 [facility] ers 4 mg tablet 3-13 tablet by ity of 00:00: mouth [place] 00 every 8 Medical (eight) Branch hours as needed for Nausea and Vomiting (N/V). ondansetron 2023-0 Yes 4mg Take 1 Univ ers 4 mg tablet 3-13 tablet by ity of 00:00: mouth [place] 00 every 8 Medical (eight) Branch hours as needed for Nausea and Vomiting (N/V). ondansetron 2023-0 Yes 4mg Take 1 Univ ers 4 mg tablet 3-13 tablet by ity of 00:00: mouth [place] 00 every 8 Medical (eight) Branch hours as needed for Nausea and Vomiting (N/V). ondansetron 2023-0 Yes 4mg Take 1 Univ ers 4 mg tablet 3-13 tablet by ity of 00:00: mouth [place] 00 every 8 Medical (eight) Branch hours as needed for Nausea and Vomiting (N/V). ondansetron 2023-0 Yes 4mg Take 1 [facility] ers 4 mg tablet 3-13 tablet by ity of 00:00: mouth [place] 00 every 8 Medical (eight) Branch hours as needed for Nausea and Vomiting (N/V). ondansetron 2023-0 Yes 4mg Take 1 [facility] ers 4 mg tablet 3-13 tablet by ity of 00:00: mouth [place] 00 every 8 Medical (eight) Branch hours as needed for Nausea and Vomiting (N/V). ondansetron 2023-0 Yes 4mg Take 1 [facility] ers 4 mg tablet 3-13 tablet by ity of 00:00: mouth [place] 00 every 8 Medical (eight) Branch hours as needed for Nausea and Vomiting (N/V). ondansetron 2023-0 2023- No 4mg Take 1 [facility] vers 4 mg tablet 3-13 05-03 tablet by it y of 00:00: 00:00 mouth [place] 00 :00 every 8 Medical (eight) Branch hours as needed for Nausea and Vomiting (N/V). SITagliptin 3-0 Yes [id number] 100mg Take 1 [facility] phosphate 3-08 tablet by ity o f (JANUVIA) 00:00: mouth in [facility] s 100 mg 00 the Medical tablet morning. Branch pioglitazon 2023-0 Yes [id number] 30mg Take 1 [facility] e 30 mg 3-08 tablet by ity of tablet 00:00: mouth in [place] 00 the Medical morning. Branch Blood-Gluco 2023-0 Yes [id number] Use as [facility] se 3-08 directed ity of [place] 00:00: [place] nuous 00 Medical (DEXCOM G6 Branch DIRECTOR PRODUCT) Misc Blood-Gluco 2023-0 Yes [id number] Use as [facility] se Sensor 3-08 directed ity of (DEXCOM G6 00:00: [place] SENSOR) 00 Medical [place] Branch Blood-Gluco 2023-0 Yes [id number] Use as [facility] se 3-08 directed ity of Transmitter 00:00: [place] (DEXCOM G6 00 Medical TRANSMITTER Branch ) [place] metoprolol 2022-0 Yes [id number] 50mg Take 1 U nivers succinate 3-08 tablet by ity o f XL 50 mg 24 00:00: mouth in [place] hr tablet 00 the Medical morning. Branch cloNIDine 2022-0 Yes [id number] .3mg Take 1 Un magdiel 0.3 mg 3-08 tablet by ity of tablet 00:00: mouth at [place] 00 bedtime. Medical Branch traZODone 2022-0 Yes [id number] 150mg Take 1 [facility] 150 mg 3-08 105 tablet by ity of tablet 00:00: mouth at [place] 00 bedtime. Medical Branch SITagliptin 2022-0 Yes [id number] 100mg Take 1 [facility] phosphate 3-08 tablet by ity o f (JANUVIA) 00:00: mouth [place] 100 mg 00 the Medical tablet morning. Branch Blood-Gluco 2022-0 Yes [id number] Use as [facility] se 3-08 directed ity of [place] 00:00: [place] nuous 00 Medical (DEXCOM G6 Branch DIRECTOR PRODUCT) Misc Blood-Gluco 2022-0 Yes [id number] Use as [facility] se Sensor 3-08 directed ity of (DEXCOM G6 00:00: [place] SENSOR) 00 Medical [place] Branch Blood-Gluco 2022-0 Yes [id number] Use as [facility] se 3-08 directed ity of Transmitter 00:00: [place] (DEXCOM G6 00 Medical TRANSMITTER Branch ) [place] metoprolol 2022-0 Yes [id number] 50mg Take 1 U nivers succinate 3-08 tablet by ity o f XL 50 mg 24 00:00: mouth in [place] hr tablet 00 the Medical morning. Branch cloNIDine 2022-0 Yes [id number] .3mg Take 1 Un mag[place]iel 0.3 mg 3-08 tablet by ity of tablet 00:00: mouth at [place] 00 bedtime. Medical Branch traZODone 2022-0 Yes [id number] 150mg Take 1 [facility] 150 mg 3-08 105 tablet by ity of tablet 00:00: mouth at [place] 00 bedtime. Medical Branch SITagliptin 2022-0 Yes [id number] 100mg Take 1 [facility] phosphate 3-08 tablet by ity o f (JANUVIA) 00:00: mouth [place] 100 mg 00 the Medical tablet morning. Branch Blood-Gluco 2022-0 Yes [id number] Use as [facility] se 3-08 directed ity of [place] 00:00: [place] nuous 00 Medical (DEXCOM G6 Branch DIRECTOR PRODUCT) Misc Blood-Gluco 3-0 Yes [id number] Use as [facility] se Sensor 3-08 directed ity of (DEXCOM G6 00:00: [place] SENSOR) 00 Medical [place] Branch Blood-Gluco 3-0 Yes [id number] Use as [facility] se 3-08 directed ity of Transmitter 00:00: [place] (DEXCOM G6 00 Medical TRANSMITTER Branch ) [place] metoprolol 3-0 Yes [id number] 50mg Take 1 U nivers succinate 3-08 tablet by ity o f XL 50 mg 24 00:00: mouth in [place] hr tablet 00 the Medical morning. Branch cloNIDine 3-0 Yes [id number] .3mg Take 1 Un mag[place] 0.3 mg 3-08 tablet by ity of tablet 00:00: mouth at [place] 00 bedtime. Medical Branch traZODone 2022-0 Yes [id number] 150mg Take 1 [facility] 150 mg 3-08 105 tablet by ity of tablet 00:00: mouth at [place] 00 bedtime. Medical Branch SITagliptin 2022-0 Yes [id number] 100mg Take 1 [facility] phosphate 3-08 tablet by ity o f (JANUVIA) 00:00: mouth [place] 100 mg 00 the Medical tablet morning. Branch Blood-Gluco 3-0 Yes [id number] Use as [facility] se 3-08 directed ity of [place] 00:00: [place] nuous 00 Medical (DEXCOM G6 Branch DIRECTOR PRODUCT) Misc Blood-Gluco 3-0 Yes [id number] Use as [facility] se Sensor 3-08 directed ity of (DEXCOM G6 00:00: [place] SENSOR) 00 Medical [place] Branch Blood-Gluco 3-0 Yes [id number] Use as [facility] se 3-08 directed ity of Transmitter 00:00: [place] (DEXCOM G6 00 Medical TRANSMITTER Branch ) [place] metoprolol 3-0 Yes [id number] 50mg Take 1 U nivers succinate 3-08 tablet by ity o f XL 50 mg 24 00:00: mouth in [place] hr tablet 00 the Medical morning. Branch cloNIDine 3-0 Yes [id number] .3mg Take 1 Un mag[place] 0.3 mg 3-08 tablet by ity of tablet 00:00: mouth at [place] 00 bedtime. Medical Branch traZODone 2023-0 Yes [id number] 150mg Take 1 [facility] 150 mg 3-08 105 tablet by ity of tablet 00:00: mouth at [place] 00 bedtime. Medical Branch SITagliptin 3-0 Yes [id number] 100mg Take 1 [facility] phosphate 3-08 tablet by ity o f (JANUVIA) 00:00: mouth [place] 100 mg 00 the Medical tablet morning. Branch Blood-Gluco 3-0 Yes [id number] Use as [facility] se 3-08 directed ity of [place] 00:00: [place] nuous 00 Medical (DEXCOM G6 Branch DIRECTOR PRODUCT) Misc Blood-Gluco 2022-0 Yes [id number] Use as [facility] se Sensor 3-08 directed ity of (DEXCOM G6 00:00: [place] SENSOR) 00 Medical [place] Branch Blood-Gluco 3-0 Yes [id number] Use as [facility] se 3-08 directed ity of Transmitter 00:00: [place] (DEXCOM G6 00 Medical TRANSMITTER Branch ) [place] metoprolol 2022-0 Yes [id number] 50mg Take 1 U nivers succinate 3-08 tablet by ity o f XL 50 mg 24 00:00: mouth in [place] hr tablet 00 the Medical morning. Branch cloNIDine 3-0 Yes [id number] .3mg Take 1 Un [place] 0.3 mg 3-08 tablet by ity of tablet 00:00: mouth at [place] 00 bedtime. Medical Branch traZODone 3-0 Yes [id number] 150mg Take 1 [facility] 150 mg 3-08 105 tablet by ity of tablet 00:00: mouth at [place] 00 bedtime. Medical Branch SITagliptin 3-0 Yes [id number] 100mg Take 1 [facility] phosphate 3-08 tablet by ity o f (JANUVIA) 00:00: mouth [place] 100 mg 00 the Medical tablet morning. Branch Blood-Gluco 3-0 Yes [id number] Use as [facility] se 3-08 directed ity of [place] 00:00: [place] nuous 00 Medical (DEXCOM G6 Branch DIRECTOR PRODUCT) Misc Blood-Gluco 3-0 Yes [id number] Use as [facility] se Sensor 3-08 directed ity of (DEXCOM G6 00:00: [place] SENSOR) 00 Medical [place] Branch Blood-Gluco 2023-0 Yes [id number] Use as [facility] se 3-08 directed ity of Transmitter 00:00: [place] (DEXCOM G6 00 Medical TRANSMITTER Branch ) [place] metoprolol 2022-0 Yes [id number] 50mg Take 1 U nivers succinate 3-08 tablet by ity o f XL 50 mg 24 00:00: mouth in [place] hr tablet 00 the Medical morning. Branch cloNIDine 2022-0 Yes [id number] .3mg Take 1 Un [place] 0.3 mg 3-08 tablet by ity of tablet 00:00: mouth at [place] 00 bedtime. Medical Branch traZODone 2022-0 Yes [id number] 150mg Take 1 [facility] 150 mg 3-08 105 tablet by ity of tablet 00:00: mouth at [place] 00 bedtime. Medical Branch SITagliptin 2022-0 Yes [id number] 100mg Take 1 [facility] phosphate 3-08 tablet by ity o f (JANUVIA) 00:00: mouth [place] 100 mg 00 the Medical tablet morning. Branch Blood-Gluco 2022-0 Yes [id number] Use as [facility] se 3-08 directed ity of [place] 00:00: [place] nuous 00 Medical (DEXCOM G6 Branch DIRECTOR PRODUCT) Mis Blood-Gluco 2022-0 Yes [id number] Use as [facility] se Sensor 3-08 directed ity of (DEXCOM G6 00:00: [place] SENSOR) 00 Medical [place] Branch Blood-Gluco 2022-0 Yes [id number] Use as [facility] se 3-08 directed ity of Transmitter 00:00: [place] (DEXCOM G6 00 Medical TRANSMITTER Branch ) [place] metoprolol 2022-0 Yes [id number] 50mg Take 1 U nivers succinate 3-08 tablet by ity o f XL 50 mg 24 00:00: mouth in [place] hr tablet 00 the Medical morning. Branch cloNIDine 2022-0 Yes [id number] .3mg Take 1 Un [place] 0.3 mg 3-08 tablet by ity of tablet 00:00: mouth at [place] 00 bedtime. Medical Branch traZODone 2022-0 Yes [id number] 150mg Take 1 [facility] 150 mg 3-08 105 tablet by ity of tablet 00:00: mouth at [place] 00 bedtime. Medical Branch SITagliptin 2022-0 Yes [id number] 100mg Take 1 [facility] phosphate 3-08 tablet by ity o f (JANUVIA) 00:00: mouth [place] 100 mg 00 the Medical tablet morning. Branch Blood-Gluco 2023-0 Yes [id number] Use as [facility] se 3-08 directed ity of [place] 00:00: [place] nuous 00 Medical (DEXCOM G6 Branch DIRECTOR PRODUCT) Misc Blood-Gluco 2023-0 Yes [id number] Use as [facility] se Sensor 3-08 directed ity of (DEXCOM G6 00:00: [place] SENSOR) 00 Medical [place] Branch Blood-Gluco 2023-0 Yes [id number] Use as [facility] se 3-08 directed ity of Transmitter 00:00: [place] (DEXCOM G6 00 Medical TRANSMITTER Branch ) [place] Blood-Gluco 2023-0 Yes [id number] Use as [facility] se 3-08 directed ity of [place] 00:00: [place] nuous 00 Medical (DEXCOM G6 Branch DIRECTOR PRODUCT) Misc Blood-Gluco 2023-0 Yes [id number] Use as [facility] se Sensor 3-08 directed ity of (DEXCOM G6 00:00: [place] SENSOR) 00 Medical [place] Branch Blood-Gluco 2023-0 Yes [id number] Use as [facility] se 3-08 directed ity of Transmitter 00:00: [place] (DEXCOM G6 00 Medical TRANSMITTER Branch ) [place] Blood-Gluco 2023-0 Yes [id number] Use as [facility] se 3-08 directed ity of [place] 00:00: [place] nuous 00 Medical (DEXCOM G6 Branch DIRECTOR PRODUCT) Misc Blood-Gluco 2023-0 Yes [id number] Use as [facility] se Sensor 3-08 directed ity of (DEXCOM G6 00:00: [place] SENSOR) 00 Medical [place] Branch Blood-Gluco 2023-0 Yes [id number] Use as [facility] se 3-08 directed ity of Transmitter 00:00: [place] (DEXCOM G6 00 Medical TRANSMITTER Branch ) [place] Blood-Gluco 2023-0 Yes [id number] Use as [facility] se 3-08 directed ity of [place] 00:00: [place] nuous 00 Medical (DEXCOM G6 Branch DIRECTOR PRODUCT) Misc Blood-Gluco 2023-0 Yes [id number] Use as [facility] se Sensor 3-08 directed ity of (DEXCOM G6 00:00: [place] SENSOR) 00 Medical [place] Branch Blood-Gluco 2023-0 Yes [id number] Use as [facility] se 3-08 directed ity of Transmitter 00:00: [place] (DEXCOM G6 00 Medical TRANSMITTER Branch ) [place] Blood-Gluco 2023-0 Yes [id number] Use as [facility] se 3-08 directed ity of [place] 00:00: [place] nuous 00 Medical (DEXCOM G6 Branch DIRECTOR PRODUCT) Misc Blood-Gluco 2023-0 Yes [id number] Use as [facility] se Sensor 3-08 directed ity of (DEXCOM G6 00:00: [place] SENSOR) 00 Medical [place] Branch Blood-Gluco 2023-0 Yes [id number] Use as [facility] se 3-08 directed ity of Transmitter 00:00: [place] (DEXCOM G6 00 Medical TRANSMITTER Branch ) [place] Blood-Gluco 2023-0 Yes [id number] Use as [facility] se 3-08 directed ity of [place] 00:00: [place] nuous 00 Medical (DEXCOM G6 Branch DIRECTOR PRODUCT) Misc Blood-Gluco 2023-0 Yes [id number] Use as [facility] se Sensor 3-08 directed ity of (DEXCOM G6 00:00: [place] SENSOR) 00 Medical [place] Branch Blood-Gluco 2023-0 Yes [id number] Use as [facility] se 3-08 directed ity of Transmitter 00:00: [place] (DEXCOM G6 00 Medical TRANSMITTER Branch ) [place] Blood-Gluco 2023-0 Yes [id number] Use as [facility] se 3-08 directed ity of [place] 00:00: [place] nuous 00 Medical (DEXCOM G6 Branch DIRECTOR PRODUCT) Misc Blood-Gluco 2023-0 Yes [id number] Use as [facility] se Sensor 3-08 directed ity of (DEXCOM G6 00:00: [place] SENSOR) 00 Medical [place] Branch Blood-Gluco 2023-0 Yes [id number] Use as [facility] se 3-08 directed ity of Transmitter 00:00: [place] (DEXCOM G6 00 Medical TRANSMITTER Branch ) [place] glipiZIDE 5 2022-0 Yes [id number] 5mg Take 1 [facility] mg tablet 3-08 tablet by ity o f 00:00: mouth 2 (two) Medical times Branch daily before breakfast and dinner. levothyroxi 2022-0 Yes [id number] 300ug Take 1 [facility] ne 300 mcg 3-08 tablet by ity of tablet 00:00: mouth [place] 00 every Medical morning. Branch metoprolol 2022-0 Yes [id number] 50mg Take 1 U nivers succinate 3-08 tablet by ity o f XL 50 mg 24 00:00: mouth in [place] hr tablet 00 the Medical morning. Branch lisinopriL Yes [id number] 20mg Take 1 U nivers 20 mg 3-08 tablet by ity of tablet 00:00: mouth in [place] 00 the Medical morning. Branch cloNIDine Yes [id number] .3mg Take 1 Un magdiel 0.3 mg 3-08 tablet by ity of tablet 00:00: mouth at [place] 00 bedtime. Medical Branch traZODone Yes [id number] 150mg Take 1 [facility] 150 mg 3-08 105 tablet by ity of tablet 00:00: mouth at [place] 00 bedtime. Medical Branch SITagliptin Yes [id number] 100mg Take 1 [facility] phosphate 3-08 tablet by ity o f (JANUVIA) 00:00: mouth in [facility] s 100 mg 00 the Medical tablet morning. Branch pioglitazon Yes [id number] 30mg Take 1 [facility] e 30 mg 3-08 tablet by ity of tablet 00:00: mouth in [place] 00 the Medical morning. Branch tirzepatide Yes [id number] 2.5mg inject 2.5 Univers (MOUNJARO) 3-08 mg under ity o f 2.5 mg/0.5 00:00: the skin [place] as mL PnIj 00 weekly. Medical Start Branch 2.5mg SC qWeek x 4 Weeks, then increase to 5 mg [place] qWeek tirzepatide Yes [id number] 5mg inject 5 Univers (MOUNJARO) 3-08 mg under ity o f 5 mg/0.5 mL 00:00: the skin [place] PnIj 00 weekly. Medical Start Branch 2.5mg SC qWeek x 4 Weeks, then increase to 5 mg SC qWeek furosemide Yes [id number] 20mg Take 1 [facility] 20 mg 3-08 tablet by ity of tablet 00:00: mouth [place] 00 every Medical Saturday, Branch and Saturday in the evening. Blood-Gluco Yes [id number] Use as [facility] se 3-08 directed ity of [place] 00:00: [place] nuous 00 Medical (DEXCOM G6 Branch DIRECTOR PRODUCT) [facility] Blood-Gluco 0 Yes [id number] Use as [facility] se Sensor 3-08 directed ity of (DEXCOM G6 00:00: [place] SENSOR) 00 Medical [place] Branch Blood-Gluco 0 Yes [id number] Use as [facility] se 3-08 directed ity of Transmitter 00:00: [place] (DEXCOM G6 00 Medical TRANSMITTER Branch ) [place] glipiZIDE 5 2022-0 Yes [id number] 5mg Take 1 [facility] mg tablet 3-08 tablet by ity o f 00:00: mouth 2 [place] 00 (two) Medical times Branch daily before breakfast and dinner. levothyroxi 2022-0 Yes [id number] 300ug Take 1 [facility] ne 300 mcg 3-08 tablet by ity of tablet 00:00: mouth [place] 00 every Medical morning. Branch metoprolol 0 Yes [id number] 50mg Take 1 U nivers succinate 3-08 tablet by ity o f XL 50 mg 24 00:00: mouth in [place] hr tablet 00 the Medical morning. Branch lisinopriL 2022-0 Yes [id number] 20mg Take 1 U nivers 20 mg 3-08 tablet by ity of tablet 00:00: mouth in [place] 00 the Medical morning. Branch cloNIDine 2022-0 Yes [id number] .3mg Take 1 Un mag[place] 0.3 mg 3-08 tablet by ity of tablet 00:00: mouth at [place] 00 bedtime. Medical Branch traZODone 2022-0 Yes [id number] 150mg Take 1 [facility] 150 mg 3-08 105 tablet by ity of tablet 00:00: mouth at [place] 00 bedtime. Medical Branch SITagliptin 2022-0 Yes [id number] 100mg Take 1 [facility] phosphate 3-08 tablet by ity o f (JANUVIA) 00:00: mouth in [place] 100 mg 00 the Medical tablet morning. Branch pioglitazon 2022-0 Yes [id number] 30mg Take 1 [facility] e 30 mg 3-08 tablet by ity of tablet 00:00: mouth in [place] 00 the Medical morning. Branch tirzepatide 0 Yes [id number] 2.5mg inject 2.5 Univers (MOUNJARO) 3-08 mg under ity o f 2.5 mg/0.5 00:00: the skin [place] PnIj 00 weekly. Medical Start Branch 2.5mg SC qWeek x 4 Weeks, then increase to 5 mg [place] qWeek tirzepatide 0 Yes [id number] 5mg inject 5 Univers (MOUNJARO) 3-08 mg under ity o f 5 mg/0.5 mL 00:00: the skin [place] PnIj 00 weekly. Medical Start Branch 2.5mg SC qWeek x 4 Weeks, then increase to 5 mg SC qWeek furosemide 2022-0 Yes [id number] 20mg Take 1 [facility] 20 mg 3-08 tablet by ity of tablet 00:00: mouth [place] 00 every Medical Saturday, Branch and Saturday in the evening. Blood-Gluco 2022-0 Yes [id number] Use as [facility] se 3-08 directed ity of [place] 00:00: [place] nuous 00 Medical (DEXCOM G6 Branch DIRECTOR PRODUCT) Misc Blood-Gluco 2022-0 Yes [id number] Use as [facility] se Sensor 3-08 directed ity of (DEXCOM G6 00:00: [place] SENSOR) 00 Medical [place] Branch Blood-Gluco 2022-0 Yes [id number] Use as [facility] se 3-08 directed ity of Transmitter 00:00: [place] (DEXCOM G6 00 Medical TRANSMITTER Branch ) [place] glipiZIDE 5 2022-0 Yes [id number] 5mg Take 1 [facility] mg tablet 3-08 tablet by ity o f 00:00: mouth 2 [place] 00 (two) Medical times Branch daily before breakfast and dinner. levothyroxi 2022-0 Yes [id number] 300ug Take 1 [facility] ne 300 mcg 3-08 tablet by ity of tablet 00:00: mouth [place] 00 every Medical morning. Branch metoprolol 2022-0 Yes [id number] 50mg Take 1 U nivers succinate 3-08 tablet by ity o f XL 50 mg 24 00:00: mouth in [place] hr tablet 00 the Medical morning. Branch lisinopriL 2022-0 Yes [id number] 20mg Take 1 U nivers 20 mg 3-08 tablet by ity of tablet 00:00: mouth in [place] 00 the Medical morning. Branch cloNIDine 2022-0 Yes [id number] .3mg Take 1 Un [place] 0.3 mg 3-08 tablet by ity of tablet 00:00: mouth at [place] 00 bedtime. Medical Branch traZODone 2023-0 Yes [id number] 150mg Take 1 [facility] 150 mg 3-08 105 tablet by ity of tablet 00:00: mouth at [place] 00 bedtime. Medical Branch SITagliptin 0 Yes [id number] 100mg Take 1 [facility] phosphate 3-08 tablet by ity o f (JANUVIA) 00:00: mouth in [place] 100 mg 00 the Medical tablet morning. Branch pioglitazon Yes [id number] 30mg Take 1 [facility] e 30 mg 3-08 tablet by ity of tablet 00:00: mouth in [place] 00 the Medical morning. Branch tirzepatide Yes [id number] 2.5mg inject 2.5 Univers (MOUNJARO) 3-08 mg under ity o f 2.5 mg/0.5 00:00: the skin [place] mL PnIj 00 weekly. Medical Start Branch 2.5mg SC qWeek x 4 Weeks, then increase to 5 mg SC qWeek tirzepatide Yes [id number] 5mg inject 5 Univers (MOUNJARO) 3-08 mg under ity o f 5 mg/0.5 mL 00:00: the skin [place] PnIj 00 weekly. Medical Start Branch 2.5mg SC qWeek x 4 Weeks, then increase to 5 mg SC qWeek furosemide Yes [id number] 20mg Take 1 [facility] 20 mg 3-08 tablet by ity of tablet 00:00: mouth [place] 00 every Medical Saturday, Branch and Saturday in the evening. Blood-Gluco 2022-0 Yes [id number] Use as [facility] se 3-08 directed ity of [place] 00:00: [place] nuous 00 Medical (DEXCOM G6 Branch DIRECTOR PRODUCT) Misc Blood-Gluco 2022-0 Yes [id number] Use as [facility] se Sensor 3-08 directed ity of (DEXCOM G6 00:00: [place] SENSOR) 00 Medical [place] Branch Blood-Gluco 2022-0 Yes [id number] Use as [facility] se 3-08 directed ity of Transmitter 00:00: [place] (DEXCOM G6 00 Medical TRANSMITTER Branch ) [place] glipiZIDE 5 2022-0 Yes [id number] 5mg Take 1 [facility] mg tablet 3-08 tablet by ity o f 00:00: mouth 2 [place] 00 (two) Medical times Branch daily before breakfast and dinner. levothyroxi 2022-0 Yes [id number] 300ug Take 1 [facility] ne 300 mcg 3-08 tablet by ity of tablet 00:00: mouth [place] 00 every Medical morning. Branch metoprolol 2022-0 Yes [id number] 50mg Take 1 U nivers succinate 3-08 tablet by ity o f XL 50 mg 24 00:00: mouth in [place] hr tablet 00 the Medical morning. Branch lisinopriL 2022-0 Yes [id number] 20mg Take 1 U nivers 20 mg 3-08 tablet by ity of tablet 00:00: mouth in [place] 00 the Medical morning. Branch cloNIDine 2022-0 Yes [id number] .3mg Take 1 Un magd[place] 0.3 mg 3-08 tablet by ity of tablet 00:00: mouth at [place] [address] bedtime. Medical Branch traZODone Yes [id number] 150mg Take 1 [facility] 150 mg 3-08 105 tablet by ity of tablet 00:00: mouth at [place] [address] bedtime. Medical Branch SITagliptin 2022-0 Yes [id number] 100mg Take 1 [facility] phosphate 3-08 tablet by ity o f (JANUVIA) 00:00: [facility] tablet morning. Branch pioglitazon Yes [id number] 30mg Take 1 [facility] e 30 mg 3-08 tablet by ity of tablet 00:00: mouth in [place] 00 the Medical morning. Branch tirzepatide Yes [id number] 2.5mg inject 2.5 Univers (MOUNJARO) 3-08 mg under ity o f 2.5 mg/0.5 00:00: the skin [place] mL PnIj 00 weekly. Medical Start Branch 2.5mg SC qWeek x 4 Weeks, then increase to 5 mg SC qWeek tirzepatide 2022- Yes [id number] 5mg inject 5 Univers (MOUNJARO) 3-08 mg under ity o f 5 mg/0.5 mL 00:00: the skin [place] PnIj 00 weekly. Medical Start Branch 2.5mg SC qWeek x 4 Weeks, then increase to 5 mg SC qWeek furosemide 2022-0 Yes [id number] 20mg Take 1 [facility] 20 mg 3-08 tablet by ity of tablet 00:00: mouth [place] 00 every Medical Saturday, Branch and Saturday in the evening. Blood-Gluco 2022-0 Yes [id number] Use as [facility] se 3-08 directed ity of [place] 00:00: [place] nuous 00 Medical (DEXCOM G6 Branch DIRECTOR PRODUCT) Misc Blood-Gluco 2022-0 Yes [id number] Use as [facility] se Sensor 3-08 directed ity of (DEXCOM G6 00:00: [place] SENSOR) 00 Medical [place] Branch Blood-Gluco 2022-0 Yes [id number] Use as [facility] se 3-08 directed ity of Transmitter 00:00: [place] (DEXCOM G6 00 Medical TRANSMITTER Branch ) [place] glipiZIDE 5 2022-0 Yes [id number] 5mg Take 1 [facility] mg tablet 3-08 tablet by ity o f 00:00: mouth 2 [place] 00 (two) Medical times Branch daily before breakfast and dinner. levothyroxi 2022-0 Yes [id number] 300ug Take 1 [facility] ne 300 mcg 3-08 tablet by ity of tablet 00:00: mouth [place] 00 every Medical morning. Branch metoprolol 2022-0 Yes [id number] 50mg Take 1 U nivers succinate 3-08 tablet by ity o f XL 50 mg 24 00:00: mouth in [place] hr tablet 00 the Medical morning. Branch lisinopriL 2022-0 Yes [id number] 20mg Take 1 U nivers 20 mg 3-08 tablet by ity of tablet 00:00: mouth in [place] 00 the Medical morning. Branch cloNIDine 2022-0 Yes [id number] .3mg Take 1 Un mag[place]iel 0.3 mg 3-08 tablet by ity of tablet 00:00: mouth at [place] 00 bedtime. Medical Branch traZODone 2022-0 Yes [id number] 150mg Take 1 [facility] 150 mg 3-08 105 tablet by ity of tablet 00:00: mouth at [place] 00 bedtime. Medical Branch SITagliptin 2022-0 Yes [id number] 100mg Take 1 [facility] phosphate 3-08 tablet by ity o f (JANUVIA) 00:00: mouth [place] 100 mg 00 the Medical tablet morning. Branch pioglitazon 2022-0 Yes [id number] 30mg Take 1 [facility] e 30 mg 3-08 tablet by ity of tablet 00:00: mouth in [place] 00 the Medical morning. Branch tirzepatide 2022-0 Yes [id number] 2.5mg inject 2.5 [facility] (MOUNJARO) 3-08 mg under ity o f 2.5 mg/0.5 00:00: the skin [place] mL PnIj 00 weekly. Medical Start Branch 2.5mg SC qWeek x 4 Weeks, then increase to 5 mg SC qWeek tirzepatide 2022-0 Yes [id number] 5mg inject 5 Univers (MOUNJARO) 3-08 mg under ity o f 5 mg/0.5 mL 00:00: the skin [place] PnIj 00 weekly. Medical Start Branch 2.5mg SC qWeek x 4 Weeks, then increase to 5 mg SC qWeek furosemide 2022-0 Yes [id number] 20mg Take 1 [facility] 20 mg 3-08 tablet by ity of tablet 00:00: mouth [place] 00 every Medical Saturday, Branch and Saturday in the evening. Blood-Gluco 2022-0 Yes [id number] Use as [facility] se 3-08 directed ity of [place] 00:00: [place] nuous 00 Medical (DEXCOM G6 Branch DIRECTOR PRODUCT) Mis Blood-Gluco 2022-0 Yes [id number] Use as [facility] se Sensor 3-08 directed ity of (DEXCOM G6 00:00: [place] SENSOR) 00 Medical [place] Branch Blood-Gluco 2022-0 Yes [id number] Use as [facility] se 3-08 directed ity of Transmitter 00:00: [place] (DEXCOM G6 00 Medical TRANSMITTER Branch ) [place] glipiZIDE 5 2022-0 Yes [id number] 5mg Take 1 [facility] mg tablet 3-08 tablet by ity o f 00:00: mouth 2 [place] 00 (two) Medical times Branch daily before breakfast and dinner. levothyroxi 2022-0 Yes [id number] 300ug Take 1 [facility] ne 300 mcg 3-08 tablet by ity of tablet 00:00: mouth [place] 00 every Medical morning. Branch metoprolol 2022-0 Yes [id number] 50mg Take 1 U nivers succinate 3-08 tablet by ity o f XL 50 mg 24 00:00: mouth in [place] hr tablet 00 the Medical morning. Branch lisinopriL 2022-0 Yes [id number] 20mg Take 1 U nivers 20 mg 3-08 tablet by ity of tablet 00:00: mouth in [place] 00 the Medical morning. Branch cloNIDine Yes [id number] .3mg Take 1 Un magdiel 0.3 mg 3-08 tablet by ity of tablet 00:00: mouth at [place] 00 bedtime. Medical Branch traZODone Yes [id number] 150mg Take 1 [facility] 150 mg 3-08 105 tablet by ity of tablet 00:00: mouth at [place] 00 bedtime. Medical Branch SITagliptin 2022-0 Yes [id number] 100mg Take 1 [facility] phosphate 3-08 tablet by ity o f (JANUVIA) 00:00[facility] tablet morning. Branch pioglitazon Yes [id number] 30mg Take 1 [facility] e 30 mg 3-08 tablet by ity of tablet 00:00: mouth in [place] 00 the Medical morning. Branch tirzepatide Yes [id number] 2.5mg inject 2.5 [facility] (MOUNJARO) 3-08 mg under ity o f 2.5 mg/0.5 00:00: the skin [place] as mL PnIj 00 weekly. Medical Start Branch 2.5mg SC qWeek x 4 Weeks, then increase to 5 mg [place] qWeek tirzepatide Yes [id number] 5mg inject 5 [facility] (MOUNJARO) 3-08 mg under ity o f 5 mg/0.5 mL 00:00: the skin [place] PnIj 00 weekly. Medical Start Branch 2.5mg SC qWeek x 4 Weeks, then increase to 5 mg [place] qWeek furosemide Yes [id number] 20mg Take 1 [facility] 20 mg 3-08 tablet by ity of tablet 00:00: mouth [place] 00 every Medical Saturday, Branch and Saturday in the evening. Blood-Gluco 2022- Yes [id number] Use as [facility] se 3-08 directed ity of [place] 00:00: [place] nuous 00 Medical (DEXCOM G6 Branch DIRECTOR PRODUCT) Misc Blood-Gluco 2022-0 Yes [id number] Use as [facility] se Sensor 3-08 directed ity of (DEXCOM G6 00:00: [place] SENSOR) 00 Medical [place] Branch Blood-Gluco Yes [id number] Use as [facility] se 3-08 directed ity of Transmitter 00:00: [place] (DEXCOM G6 00 Medical TRANSMITTER Branch ) [place] glipiZIDE 5 Yes [id number] 5mg Take 1 [facility] mg tablet 3-08 tablet by ity o f 00:00: mouth 2 [place] 00 (two) Medical times Branch daily before breakfast and dinner. levothyroxi Yes [id number] 300ug Take 1 [facility] ne 300 mcg 3-08 tablet by ity of tablet 00:00: mouth [place] 00 every Medical morning. Branch metoprolol Yes [id number] 50mg Take 1 U nivers succinate 3-08 tablet by ity o f XL 50 mg 24 00:00: mouth in [place] hr tablet 00 the Medical morning. Branch lisinopriL Yes [id number] 20mg Take 1 U nivers 20 mg 3-08 tablet by ity of tablet 00:00: mouth in [place] 00 the Medical morning. Branch cloNIDine Yes [id number] .3mg Take 1 Un magdiel 0.3 mg 3-08 tablet by ity of tablet 00:00: mouth at [place] 00 bedtime. Medical Branch traZODone Yes [id number] 150mg Take 1 [facility] 150 mg 3-08 105 tablet by ity of tablet 00:00: mouth at [place] 00 bedtime. Medical Branch SITagliptin Yes [id number] 100mg Take 1 [facility] phosphate 3-08 tablet by ity o f (JANUVIA) 00:00: mouth in [facility] s 100 mg 00 the Medical tablet morning. Branch pioglitazon Yes [id number] 30mg Take 1 [facility] e 30 mg 3-08 tablet by ity of tablet 00:00: mouth in [place] 00 the Medical morning. Branch tirzepatide Yes [id number] 2.5mg inject 2.5 [facility] (MOUNJARO) 3-08 mg under ity o f 2.5 mg/0.5 00:00: the skin [place] mL PnIj 00 weekly. Medical Start Branch 2.5mg SC qWeek x 4 Weeks, then increase to 5 mg [place] qWeek tirzepatide Yes [id number] 5mg inject 5 [facility] (MOUNJARO) 3-08 mg under ity o f 5 mg/0.5 mL 00:00: the skin [place] PnIj 00 weekly. Medical Start Branch 2.5mg SC qWeek x 4 Weeks, then increase to 5 mg SC qWeek furosemide 2022-0 Yes [id number] 20mg Take 1 [facility] 20 mg 3-08 tablet by ity of tablet 00:00: mouth [place] 00 every Medical Saturday, Branch and Saturday in the evening. Blood-Gluco 2022-0 Yes [id number] Use as [facility] se 3-08 directed ity of [place] 00:00: [place] nuous 00 Medical (DEXCOM G6 Branch DIRECTOR PRODUCT) Misc Blood-Gluco 2022-0 Yes [id number] Use as [facility] se Sensor 3-08 directed ity of (DEXCOM G6 00:00: [place] SENSOR) 00 Medical [place] Branch Blood-Gluco 2022-0 Yes [id number] Use as [facility] se 3-08 directed ity of Transmitter 00:00: [place] (DEXCOM G6 00 Medical TRANSMITTER Branch ) [place] glipiZIDE 5 2022-0 Yes [id number] 5mg Take 1 [facility] mg tablet 3-08 tablet by ity o f 00:00: mouth 2 [place] 00 (two) Medical times Branch daily before breakfast and dinner. levothyroxi 2022-0 Yes [id number] 300ug Take 1 [facility] ne 300 mcg 3-08 tablet by ity of tablet 00:00: mouth [place] 00 every Medical morning. Branch metoprolol 2022-0 Yes [id number] 50mg Take 1 U nivers succinate 3-08 tablet by ity o f XL 50 mg 24 00:00: mouth in [place] hr tablet 00 the Medical morning. Branch lisinopriL 2022-0 Yes [id number] 20mg Take 1 U nivers 20 mg 3-08 tablet by ity of tablet 00:00: mouth in [place] 00 the Medical morning. Branch cloNIDine 2022-0 Yes [id number] .3mg Take 1 Un magdiel 0.3 mg 3-08 tablet by ity of tablet 00:00: mouth at [place] 00 bedtime. Medical Branch traZODone 2022-0 Yes [id number] 150mg Take 1 [facility] 150 mg 3-08 105 tablet by ity of tablet 00:00: mouth at [place] 00 bedtime. Medical Branch SITagliptin 0 Yes [id number] 100mg Take 1 [facility] phosphate 3-08 tablet by ity o f (JANUVIA) 00:00: mouth [place] 100 mg 00 the Medical tablet morning. Branch pioglitazon Yes [id number] 30mg Take 1 [facility] e 30 mg 3-08 tablet by ity of tablet 00:00: mouth in [place] 00 the Medical morning. Branch tirzepatide Yes [id number] 2.5mg inject 2.5 [facility] (MOUNJARO) 3-08 mg under ity o f 2.5 mg/0.5 00:00: the skin [place] mL PnIj 00 weekly. Medical Start Branch 2.5mg SC qWeek x 4 Weeks, then increase to 5 mg SC qWeek tirzepatide Yes [id number] 5mg inject 5 [facility] (MOUNJARO) 3-08 mg under ity o f 5 mg/0.5 mL 00:00: the skin [place] PnIj 00 weekly. Medical Start Branch 2.5mg SC qWeek x 4 Weeks, then increase to 5 mg SC qWeek furosemide Yes [id number] 20mg Take 1 [facility] 20 mg 3-08 tablet by ity of tablet 00:00: mouth [place] 00 every Medical Saturday, Branch and Saturday in the evening. Blood-Gluco 0 Yes [id number] Use as [facility] se 3-08 directed ity of [place] 00:00: [place] nuous 00 Medical (DEXCOM G6 Branch DIRECTOR PRODUCT) Misc Blood-Gluco 2022-0 Yes [id number] Use as [facility] se Sensor 3-08 directed ity of (DEXCOM G6 00:00: [place] SENSOR) 00 Medical [place] Branch Blood-Gluco 2022-0 Yes [id number] Use as [facility] se 3-08 directed ity of Transmitter 00:00: [place] (DEXCOM G6 00 Medical TRANSMITTER Branch ) [place] glipiZIDE 5 0 Yes [id number] 5mg Take 1 [facility] mg tablet 3-08 tablet by ity o f 00:00: mouth 2 [place] 00 (two) Medical times Branch daily before breakfast and dinner. levothyroxi 0 Yes [id number] 300ug Take 1 [facility] ne 300 mcg 3-08 tablet by ity of tablet 00:00: mouth [place] 00 every Medical morning. Branch metoprolol 2022-0 Yes [id number] 50mg Take 1 U nivers succinate 3-08 tablet by ity o f XL 50 mg 24 00:00: mouth in [place] hr tablet 00 the Medical morning. Branch lisinopriL 2022-0 Yes [id number] 20mg Take 1 U nivers 20 mg 3-08 tablet by ity of tablet 00:00: mouth in [place] 00 the Medical morning. Branch cloNIDine 2022-0 Yes [id number] .3mg Take 1 Un mag[place] 0.3 mg 3-08 tablet by ity of tablet 00:00: mouth at [place] 00 bedtime. Medical Branch traZODone 2022-0 Yes [id number] 150mg Take 1 [facility] 150 mg 3-08 105 tablet by ity of tablet 00:00: mouth at [place] 00 bedtime. Medical Branch SITagliptin 2022-0 Yes [id number] 100mg Take 1 [facility] phosphate 3-08 tablet by ity o f (JANUVIA) 00:00: mouth in [facility] s 100 mg 00 the Medical tablet morning. Branch pioglitazon 2022-0 Yes [id number] 30mg Take 1 [facility] e 30 mg 3-08 tablet by ity of tablet 00:00: mouth in [place] 00 the Medical morning. Branch furosemide 2022-0 Yes [id number] 20mg Take 1 [facility] 20 mg 3-08 tablet by ity of tablet 00:00: mouth [place] 00 every Medical Saturday, Branch and Saturday in the evening. Blood-Gluco 2022-0 Yes [id number] Use as [facility] se 3-08 directed ity of [place] 00:00: [place] nuous 00 Medical (DEXCOM G6 Branch DIRECTOR PRODUCT) Misc Blood-Gluco 2022-0 Yes [id number] Use as [facility] se Sensor 3-08 directed ity of (DEXCOM G6 00:00: [place] SENSOR) 00 Medical [place] Branch Blood-Gluco 2022-0 Yes [id number] Use as [facility] se 3-08 directed ity of Transmitter 00:00: [place] (DEXCOM G6 00 Medical TRANSMITTER Branch ) [place] glipiZIDE 5 2022-0 Yes [id number] 5mg Take 1 [facility] mg tablet 3-08 tablet by ity o f 00:00: mouth 2 [place] 00 (two) Medical times Branch daily before breakfast and dinner. levothyroxi 2022-0 Yes [id number] 300ug Take 1 [facility] ne 300 mcg 3-08 tablet by ity of tablet 00:00: mouth [place] 00 every Medical morning. Branch metoprolol 2022-0 Yes [id number] 50mg Take 1 U nivers succinate 3-08 tablet by ity o f XL 50 mg 24 00:00: mouth in [place] hr tablet 00 the Medical morning. Branch lisinopriL 2022-0 Yes [id number] 20mg Take 1 U nivers 20 mg 3-08 tablet by ity of tablet 00:00: mouth in [place] 00 the Medical morning. Branch cloNIDine 2022-0 Yes [id number] .3mg Take 1 Un [place] 0.3 mg 3-08 tablet by ity of tablet 00:00: mouth at [place] [address] bedtime. Medical Branch traZODone 2022-0 Yes [id number] 150mg Take 1 [facility] 150 mg 3-08 105 tablet by ity of tablet 00:00: mouth at [place] [address] bedtime. Medical Branch SITagliptin 2022-0 Yes [id number] 100mg Take 1 [facility] phosphate 3-08 tablet by ity o f (JANUVIA) 00:00: mouth in [facility] s 100 mg 00 the Medical tablet morning. Branch pioglitazon 0 Yes [id number] 30mg Take 1 [facility] e 30 mg 3-08 tablet by ity of tablet 00:00: mouth in [place] 00 the Medical morning. Branch furosemide 2022-0 Yes [id number] 20mg Take 1 [facility] 20 mg 3-08 tablet by ity of tablet 00:00: mouth [place] 00 every Medical Saturday, Branch and Saturday in the evening. Blood-Gluco 2022-0 Yes [id number] Use as [facility] se 3-08 directed ity of [place] 00:00: [place] nuous 00 Medical (DEXCOM G6 Branch DIRECTOR PRODUCT) Misc Blood-Gluco 2022-0 Yes [id number] Use as [facility] se Sensor 3-08 directed ity of (DEXCOM G6 00:00: [place] SENSOR) 00 Medical [place] Branch Blood-Gluco 2022-0 Yes [id number] Use as [facility] se 3-08 directed ity of Transmitter 00:00: [place] (DEXCOM G6 00 Medical TRANSMITTER Branch ) [place] glipiZIDE 5 2022-0 Yes [id number] 5mg Take 1 [facility] mg tablet 3-08 tablet by ity o f 00:00: mouth 2 [place] 00 (two) Medical times Branch daily before breakfast and dinner. levothyroxi 2022-0 Yes [id number] 300ug Take 1 [facility] ne 300 mcg 3-08 tablet by ity of tablet 00:00: mouth [place] 00 every Medical morning. Branch metoprolol 2022-0 Yes [id number] 50mg Take 1 U nivers succinate 3-08 tablet by ity o f XL 50 mg 24 00:00: mouth in [place] hr tablet 00 the Medical morning. Branch lisinopriL 2022-0 Yes [id number] 20mg Take 1 U nivers 20 mg 3-08 tablet by ity of tablet 00:00: mouth in [place] 00 the Medical morning. Branch cloNIDine 2022-0 Yes [id number] .3mg Take 1 Un magdiel 0.3 mg 3-08 tablet by ity of tablet 00:00: mouth at [place] [address] bedtime. Medical Branch traZODone 2022-0 Yes [id number] 150mg Take 1 [facility] 150 mg 3-08 105 tablet by ity of tablet 00:00: mouth at [place] [address] bedtime. Medical Branch SITagliptin 2022-0 Yes [id number] 100mg Take 1 [facility] phosphate 3-08 tablet by ity o f (JANUVIA) 00:00: mouth in [facility] s 100 mg 00 the Medical tablet morning. Branch pioglitazon 2022-0 Yes [id number] 30mg Take 1 [facility] e 30 mg 3-08 tablet by ity of tablet 00:00: mouth in [place] 00 the Medical morning. Branch furosemide 2022-0 Yes [id number] 20mg Take 1 [facility] 20 mg 3-08 tablet by ity of tablet 00:00: mouth [place] 00 every Medical Saturday, Branch and Saturday in the evening. Blood-Gluco 2022-0 Yes [id number] Use as [facility] se 3-08 directed ity of [place] 00:00: [place] nuous 00 Medical (DEXCOM G6 Branch DIRECTOR PRODUCT) Mis Blood-Gluco 2022-0 Yes [id number] Use as [facility] se Sensor 3-08 directed ity of (DEXCOM G6 00:00: [place] SENSOR) 00 Medical [place] Branch Blood-Gluco 2022-0 Yes [id number] Use as [facility] se 3-08 directed ity of Transmitter 00:00: [place] (DEXCOM G6 00 Medical TRANSMITTER Branch ) [place] glipiZIDE 5 2022-0 Yes [id number] 5mg Take 1 [facility] mg tablet 3-08 tablet by ity o f 00:00: mouth 2 [place] 00 (two) Medical times Branch daily before breakfast and dinner. levothyroxi 2022-0 Yes [id number] 300ug Take 1 [facility] ne 300 mcg 3-08 tablet by ity of tablet 00:00: mouth [place] 00 every Medical morning. Branch metoprolol 2022-0 Yes [id number] 50mg Take 1 U nivers succinate 3-08 tablet by ity o f XL 50 mg 24 00:00: mouth in [place] hr tablet 00 the Medical morning. Branch lisinopriL 2022-0 Yes [id number] 20mg Take 1 U nivers 20 mg 3-08 tablet by ity of tablet 00:00: mouth in [place] 00 the Medical morning. Branch cloNIDine 2022-0 Yes [id number] .3mg Take 1 Un magdiel 0.3 mg 3-08 tablet by ity of tablet 00:00: mouth at [place] 00 bedtime. Medical Branch traZODone 2022-0 Yes [id number] 150mg Take 1 [facility] 150 mg 3-08 105 tablet by ity of tablet 00:00: mouth at [place] 00 bedtime. Medical Branch SITagliptin 2022-0 Yes [id number] 100mg Take 1 [facility] phosphate 3-08 tablet by ity o f (JANUVIA) 00:00: mouth in [facility] s 100 mg 00 the Medical tablet morning. Branch pioglitazon 2022-0 Yes [id number] 30mg Take 1 [facility] e 30 mg 3-08 tablet by ity of tablet 00:00: mouth in [place] 00 the Medical morning. Branch furosemide 2022-0 Yes [id number] 20mg Take 1 [facility] 20 mg 3-08 tablet by ity of tablet 00:00: mouth [place] 00 every Medical Saturday, Branch and Saturday in the evening. Blood-Gluco 2022-0 Yes [id number] Use as [facility] se 3-08 directed ity of [place] 00:00: [place] nuous 00 Medical (DEXCOM G6 Branch DIRECTOR PRODUCT) Misc Blood-Gluco 2022-0 Yes [id number] Use as [facility] se Sensor 3-08 directed ity of (DEXCOM G6 00:00: [place] SENSOR) 00 Medical [place] Branch Blood-Gluco 2022-0 Yes [id number] Use as [facility] se 3-08 directed ity of Transmitter 00:00: [place] (DEXCOM G6 00 Medical TRANSMITTER Branch ) [place] glipiZIDE 5 2022-0 Yes [id number] 5mg Take 1 [facility] mg tablet 3-08 tablet by ity o f 00:00: mouth 2 [place] 00 (two) Medical times Branch daily before breakfast and dinner. levothyroxi 2022-0 Yes [id number] 300ug Take 1 [facility] ne 300 mcg 3-08 tablet by ity of tablet 00:00: mouth [place] 00 every Medical morning. Branch metoprolol 2022-0 Yes [id number] 50mg Take 1 U nivers succinate 3-08 tablet by ity o f XL 50 mg 24 00:00: mouth in [place] hr tablet 00 the Medical morning. Branch lisinopriL 2022-0 Yes [id number] 20mg Take 1 U nivers 20 mg 3-08 tablet by ity of tablet 00:00: mouth in [place] 00 the Medical morning. Branch cloNIDine 2022-0 Yes [id number] .3mg Take 1 Un magdiel 0.3 mg 3-08 tablet by ity of tablet 00:00: mouth at [place] 00 bedtime. Medical Branch traZODone 2022-0 Yes [id number] 150mg Take 1 [facility] 150 mg 3-08 105 tablet by ity of tablet 00:00: mouth at [place] 00 bedtime. Medical Branch SITagliptin 2022-0 Yes [id number] 100mg Take 1 [facility] phosphate 3-08 tablet by ity o f (JANUVIA) 00:00: [place] mg 00 the Medical tablet morning. Branch pioglitazon 2022-0 Yes [id number] 30mg Take 1 [facility] e 30 mg 3-08 tablet by ity of tablet 00:00: mouth in [place] 00 the Medical morning. Branch furosemide 2022-0 Yes [id number] 20mg Take 1 [facility] 20 mg 3-08 tablet by ity of tablet 00:00: mouth [place] 00 every Medical Saturday, Branch and Saturday in the evening. Blood-Gluco 2022-0 Yes [id number] Use as [facility] se 3-08 directed ity of [place] 00:00: [place] nuous 00 Medical (DEXCOM G6 Branch DIRECTOR PRODUCT) Misc Blood-Gluco 2022-0 Yes [id number] Use as [facility] se Sensor 3-08 directed ity of (DEXCOM G6 00:00: [place] SENSOR) 00 Medical [place] Branch Blood-Gluco 2022-0 Yes [id number] Use as [facility] se 3-08 directed ity of Transmitter 00:00: [place] (DEXCOM G6 00 Medical TRANSMITTER Branch ) [place] glipiZIDE 5 2022-0 Yes [id number] 5mg Take 1 [facility] mg tablet 3-08 tablet by ity o f 00:00: mouth 2 [place] 00 (two) Medical times Branch daily before breakfast and dinner. levothyroxi 2022-0 Yes [id number] 300ug Take 1 [facility] ne 300 mcg 3-08 tablet by ity of tablet 00:00: mouth [place] 00 every Medical morning. Branch metoprolol 2022-0 Yes [id number] 50mg Take 1 U nivers succinate 3-08 tablet by ity o f XL 50 mg 24 00:00: mouth in [place] hr tablet 00 the Medical morning. Branch lisinopriL 2022-0 Yes [id number] 20mg Take 1 U nivers 20 mg 3-08 tablet by ity of tablet 00:00: mouth in [place] 00 the Medical morning. Branch cloNIDine 2022-0 Yes [id number] .3mg Take 1 Un magdiel 0.3 mg 3-08 tablet by ity of tablet 00:00: mouth at [place] 00 bedtime. Medical Branch traZODone 2022-0 Yes [id number] 150mg Take 1 [facility] 150 mg 3-08 105 tablet by ity of tablet 00:00: mouth at [place] 00 bedtime. Medical Branch SITagliptin 2022-0 Yes [id number] 100mg Take 1 [facility] phosphate 3-08 tablet by ity o f (JANUVIA) 00:00: mouth [place] 100 mg 00 the Medical tablet morning. Branch pioglitazon 2022-0 Yes [id number] 30mg Take 1 [facility] e 30 mg 3-08 tablet by ity of tablet 00:00: mouth in [place] 00 the Medical morning. Branch furosemide 2022-0 Yes [id number] 20mg Take 1 [facility] 20 mg 3-08 tablet by ity of tablet 00:00: mouth [place] 00 every Medical Saturday, Branch and Saturday in the evening. Blood-Gluco 2023-0 Yes [id number] Use as [facility] se 3-08 directed ity of [place] 00:00: [place] nuous 00 Medical (DEXCOM G6 Branch DIRECTOR PRODUCT) Misc Blood-Gluco 2022-0 Yes [id number] Use as [facility] se Sensor 3-08 directed ity of (DEXCOM G6 00:00: [place] SENSOR) 00 Medical [place] Branch Blood-Gluco 2022-0 Yes [id number] Use as [facility] se 3-08 directed ity of Transmitter 00:00: [place] (DEXCOM G6 00 Medical TRANSMITTER Branch ) [place] glipiZIDE 5 2022-0 Yes [id number] 5mg Take 1 [facility] mg tablet 3-08 tablet by ity o f 00:00: mouth 2 [place] 00 (two) Medical times Branch daily before breakfast and dinner. levothyroxi 2022-0 Yes [id number] 300ug Take 1 [facility] ne 300 mcg 3-08 tablet by ity of tablet 00:00: mouth [place] 00 every Medical morning. Branch metoprolol 2022-0 Yes [id number] 50mg Take 1 U nivers succinate 3-08 tablet by ity o f XL 50 mg 24 00:00: mouth in [place] hr tablet 00 the Medical morning. Branch lisinopriL 2022-0 Yes [id number] 20mg Take 1 U nivers 20 mg 3-08 tablet by ity of tablet 00:00: mouth in [place] 00 the Medical morning. Branch cloNIDine 2022-0 Yes [id number] .3mg Take 1 Un mag[place] 0.3 mg 3-08 tablet by ity of tablet 00:00: mouth at [place] 00 bedtime. Medical Branch traZODone 2022-0 Yes [id number] 150mg Take 1 [facility] 150 mg 3-08 105 tablet by ity of tablet 00:00: mouth at [place] 00 bedtime. Medical Branch SITagliptin 2022-0 Yes [id number] 100mg Take 1 [facility] phosphate 3-08 tablet by ity o f (JANUVIA) 00:00: mouth [place] 100 mg 00 the Medical tablet morning. Branch pioglitazon 2022-0 Yes [id number] 30mg Take 1 [facility] e 30 mg 3-08 tablet by ity of tablet 00:00: mouth in [place] 00 the Medical morning. Branch Blood-Gluco 2022-0 Yes [id number] Use as [facility] se 3-08 directed ity of [place] 00:00: [place] nuous 00 Medical (DEXCOM G6 Branch DIRECTOR PRODUCT) Misc Blood-Gluco 2022-0 Yes [id number] Use as [facility] se Sensor 3-08 directed ity of (DEXCOM G6 00:00: [place] SENSOR) 00 Medical [place] Branch Blood-Gluco 2022-0 Yes [id number] Use as [facility] se 3-08 directed ity of Transmitter 00:00: [place] (DEXCOM G6 00 Medical TRANSMITTER Branch ) [place] glipiZIDE 5 2022-0 Yes [id number] 5mg Take 1 [facility] mg tablet 3-08 tablet by ity o f 00:00: mouth 2 [place] 00 (two) Medical times Branch daily before breakfast and dinner. levothyroxi 2022-0 Yes [id number] 300ug Take 1 [facility] ne 300 mcg 3-08 tablet by ity of tablet 00:00: mouth [place] 00 every Medical morning. Branch metoprolol 2022-0 Yes [id number] 50mg Take 1 U nivers succinate 3-08 tablet by ity o f XL 50 mg 24 00:00: mouth in [place] hr tablet 00 the Medical morning. Branch lisinopriL 2022-0 Yes [id number] 20mg Take 1 U nivers 20 mg 3-08 tablet by ity of tablet 00:00: mouth in [place] 00 the Medical morning. Branch cloNIDine 2022-0 Yes [id number] .3mg Take 1 Un magdiel 0.3 mg 3-08 tablet by ity of tablet 00:00: mouth at [place] 00 bedtime. Medical Branch traZODone 2022-0 Yes [id number] 150mg Take 1 [facility] 150 mg 3-08 105 tablet by ity of tablet 00:00: mouth at [place] 00 bedtime. Medical Branch SITagliptin 2022-0 Yes [id number] 100mg Take 1 [facility] phosphate 3-08 tablet by ity o f (JANUVIA) 00:00: mouth in [place] 100 mg 00 the Medical tablet morning. Branch pioglitazon 2022-0 Yes [id number] 30mg Take 1 [facility] e 30 mg 3-08 tablet by ity of tablet 00:00: mouth in [place] 00 the Medical morning. Branch Blood-Gluco 2022-0 Yes [id number] Use as [facility] se 3-08 directed ity of [place] 00:00: [place] nuous 00 Medical (DEXCOM G6 Branch DIRECTOR PRODUCT) Misc Blood-Gluco 2022-0 Yes [id number] Use as [facility] se Sensor 3-08 directed ity of (DEXCOM G6 00:00: [place] SENSOR) 00 Medical [place] Branch Blood-Gluco 2022-0 Yes [id number] Use as [facility] se 3-08 directed ity of Transmitter 00:00: [place] (DEXCOM G6 00 Medical TRANSMITTER Branch ) [place] glipiZIDE 5 2022-0 Yes [id number] 5mg Take 1 [facility] mg tablet 3-08 tablet by ity o f 00:00: mouth 2 [place] 00 (two) Medical times Branch daily before breakfast and dinner. metoprolol 2022-0 Yes [id number] 50mg Take 1 U nivers succinate 3-08 tablet by ity o f XL 50 mg 24 00:00: mouth in [place] hr tablet 00 the Medical morning. Branch lisinopriL 2022-0 Yes [id number] 20mg Take 1 U nivers 20 mg 3-08 tablet by ity of tablet 00:00: mouth in [place] the Medical morning. Branch cloNIDine 2022-0 Yes [id number] .3mg Take 1 Un mag[place] 0.3 mg 3-08 tablet by ity of tablet 00:00: mouth at [place] 00 bedtime. Medical Branch traZODone 2022-0 Yes [id number] 150mg Take 1 [facility] 150 mg 3-08 105 tablet by ity of tablet 00:00: mouth at [place] 00 bedtime. Medical Branch SITagliptin 2022-0 Yes [id number] 100mg Take 1 [facility] phosphate 3-08 tablet by ity o f (JANUVIA) 00:00: mouth in [facility] s 100 mg 00 the Medical tablet morning. Branch pioglitazon 2022-0 Yes [id number] 30mg Take 1 [facility] e 30 mg 3-08 tablet by ity of tablet 00:00: mouth in [place] 00 the Medical morning. Branch Blood-Gluco 2022-0 Yes [id number] Use as [facility] se 3-08 directed ity of [place] 00:00: [place] nuous 00 Medical (DEXCOM G6 Branch DIRECTOR PRODUCT) Misc Blood-Gluco 2022-0 Yes [id number] Use as [facility] se Sensor 3-08 directed ity of (DEXCOM G6 00:00: [place] SENSOR) 00 Medical [place] Branch Blood-Gluco 2022-0 Yes [id number] Use as [facility] se 3-08 directed ity of Transmitter 00:00: [place] (DEXCOM G6 00 Medical TRANSMITTER Branch ) [place] glipiZIDE 5 2022-0 Yes [id number] 5mg Take 1 [facility] mg tablet 3-08 tablet by ity o f 00:00: mouth 2 [place] 00 (two) Medical times Branch daily before breakfast and dinner. metoprolol 2022-0 Yes [id number] 50mg Take 1 U nivers succinate 3-08 tablet by ity o f XL 50 mg 24 00:00: mouth in [place] hr tablet 00 the Medical morning. Branch lisinopriL 2022-0 Yes [id number] 20mg Take 1 U nivers 20 mg 3-08 tablet by ity of tablet 00:00: mouth in [place] 00 the Medical morning. Branch cloNIDine 2022-0 Yes [id number] .3mg Take 1 Un mag[place] 0.3 mg 3-08 tablet by ity of tablet 00:00: mouth at [place] [address] bedtime. Medical Branch traZODone 2022-0 Yes [id number] 150mg Take 1 [facility] 150 mg 3-08 105 tablet by ity of tablet 00:00: mouth at [place] [address] bedtime. Medical Branch SITagliptin 2022-0 Yes [id number] 100mg Take 1 [facility] phosphate 3-08 tablet by ity o f (JANUVIA) 00:00: mouth in [facility] s 100 mg 00 the Medical tablet morning. Branch pioglitazon 2022-0 Yes [id number] 30mg Take 1 [facility] e 30 mg 3-08 tablet by ity of tablet 00:00: mouth in [place] 00 the Medical morning. Branch Blood-Gluco 2022-0 Yes [id number] Use as [facility] se 3-08 directed ity of [place] 00:00: [place] nuous 00 Medical (DEXCOM G6 Branch DIRECTOR PRODUCT) Misc Blood-Gluco 2022-0 Yes [id number] Use as [facility] se Sensor 3-08 directed ity of (DEXCOM G6 00:00: [place] SENSOR) 00 Medical [place] Branch Blood-Gluco 2022-0 Yes [id number] Use as [facility] se 3-08 directed ity of Transmitter 00:00: [place] (DEXCOM G6 00 Medical TRANSMITTER Branch ) [place] glipiZIDE 5 2022-0 Yes [id number] 5mg Take 1 [facility] mg tablet 3-08 tablet by ity o f 00:00: mouth 2 [place] (two) Medical times Branch daily before breakfast and dinner. metoprolol 2022-0 Yes [id number] 50mg Take 1 U nivers succinate 3-08 tablet by ity o f XL 50 mg 24 00:00: mouth in [place] hr tablet 00 the Medical morning. Branch lisinopriL 2022-0 Yes [id number] 20mg Take 1 U nivers 20 mg 3-08 tablet by ity of tablet 00:00: mouth in [place] 00 the Medical morning. Branch cloNIDine 2022-0 Yes [id number] .3mg Take 1 Un [place] 0.3 mg 3-08 tablet by ity of tablet 00:00: mouth at [place] [address] bedtime. Medical Branch traZODone 2022-0 Yes [id number] 150mg Take 1 [facility] 150 mg 3-08 105 tablet by ity of tablet 00:00: mouth at [place] [address] bedtime. Medical Branch SITagliptin 2022-0 Yes [id number] 100mg Take 1 [facility] phosphate 3-08 tablet by ity o f (JANUVIA) 00:00: mouth in [facility] s 100 mg 00 the Medical tablet morning. Branch pioglitazon 2022-0 Yes [id number] 30mg Take 1 [facility] e 30 mg 3-08 tablet by ity of tablet 00:00: mouth in [place] the Medical morning. Branch Blood-Gluco 2022-0 Yes [id number] Use as [facility] se 3-08 directed ity of [place] 00:00: [place] nuous 00 Medical (DEXCOM G6 Branch DIRECTOR PRODUCT) Misc Blood-Gluco 2022-0 Yes [id number] Use as [facility] se Sensor 3-08 directed ity of (DEXCOM G6 00:00: [place] SENSOR) 00 Medical [place] Branch Blood-Gluco 2022-0 Yes [id number] Use as [facility] se 3-08 directed ity of Transmitter 00:00: [place] (DEXCOM G6 00 Medical TRANSMITTER Branch ) [place] glipiZIDE 5 2022-0 Yes [id number] 5mg Take 1 [facility] mg tablet 3-08 tablet by ity o f 00:00: mouth 2 [place] (two) Medical times [place] daily before breakfast and dinner. metoprolol 2022-0 Yes [id number] 50mg Take 1 U nivers succinate 3-08 tablet by ity o f XL 50 mg 24 00:00: mouth in [place] hr tablet 00 the Medical morning. Branch lisinopriL 2022-0 Yes [id number] 20mg Take 1 U nivers 20 mg 3-08 tablet by ity of tablet 00:00: mouth in [place] 00 the Medical morning. Branch cloNIDine 2022-0 Yes [id number] .3mg Take 1 Un magdiel 0.3 mg 3-08 tablet by ity of tablet 00:00: mouth at [place] 00 bedtime. Medical Branch traZODone 2022-0 Yes [id number] 150mg Take 1 [facility] 150 mg 3-08 105 tablet by ity of tablet 00:00: mouth at [place] 00 bedtime. Medical Branch SITagliptin 2022-0 Yes [id number] 100mg Take 1 [facility] phosphate 3-08 tablet by ity o f (JANUVIA) 00:00: mouth in [facility] s 100 mg 00 the Medical tablet morning. Branch pioglitazon 2022-0 Yes [id number] 30mg Take 1 [facility] e 30 mg 3-08 tablet by ity of tablet 00:00: mouth in [place] 00 the Medical morning. Branch Blood-Gluco 2022-0 Yes [id number] Use as [facility] se 3-08 directed ity of [place] 00:00: [place] nuous 00 Medical (DEXCOM G6 Branch DIRECTOR PRODUCT) Misc Blood-Gluco 2022-0 Yes [id number] Use as [facility] se Sensor 3-08 directed ity of (DEXCOM G6 00:00: [place] SENSOR) 00 Medical [place] Branch Blood-Gluco 2022-0 Yes [id number] Use as [facility] se 3-08 directed ity of Transmitter 00:00: [place] (DEXCOM G6 00 Medical TRANSMITTER Branch ) [place] glipiZIDE 5 2022-0 Yes [id number] 5mg Take 1 [facility] mg tablet 3-08 tablet by ity o f 00:00: mouth 2 [place] 00 (two) Medical times Branch daily before breakfast and dinner. metoprolol 2022-0 Yes [id number] 50mg Take 1 U nivers succinate 3-08 tablet by ity o f XL 50 mg 24 00:00: mouth in [place] hr tablet 00 the Medical morning. Branch lisinopriL 2022-0 Yes [id number] 20mg Take 1 U nivers 20 mg 3-08 tablet by ity of tablet 00:00: mouth in [place] 00 the Medical morning. Branch cloNIDine 2023-0 Yes [id number] .3mg Take 1 Un magdiel 0.3 mg 3-08 tablet by ity of tablet 00:00: mouth at [place] 00 bedtime. Medical Branch traZODone 0 Yes [id number] 150mg Take 1 [facility] 150 mg 3-08 105 tablet by ity of tablet 00:00: mouth at [place] 00 bedtime. Medical Branch SITagliptin 0 Yes [id number] 100mg Take 1 [facility] phosphate 3-08 tablet by ity o f (JANUVIA) 00:00: mouth in [facility] s 100 mg 00 the Medical tablet morning. Branch pioglitazon Yes [id number] 30mg Take 1 [facility] e 30 mg 3-08 tablet by ity of tablet 00:00: mouth in [place] 00 the morning. Branch Blood-Gluco 0 Yes [id number] Use as [facility] se 3-08 directed ity of [place] 00:00: [place] nuous 00 Medical (DEXCOM G6 Branch DIRECTOR PRODUCT) Misc Blood-Gluco 0 Yes [id number] Use as [facility] se Sensor 3-08 directed ity of (DEXCOM G6 00:00: [place] SENSOR) 00 Medical [place] Branch Blood-Gluco 0 Yes [id number] Use as [facility] se 3-08 directed ity of Transmitter 00:00: [place] (DEXCOM G6 00 Medical TRANSMITTER Branch ) [place] glipiZIDE 5 0 Yes [id number] 5mg Take 1 [facility] mg tablet 3-08 tablet by ity o f 00:00: mouth 2 [place] 00 (two) Medical times Branch daily before breakfast and dinner. metoprolol 0 Yes [id number] 50mg Take 1 U nivers succinate 3-08 tablet by ity o f XL 50 mg 24 00:00: mouth in [place] hr tablet 00 the morning. Branch cloNIDine 0 Yes [id number] .3mg Take 1 Un magdiel 0.3 mg 3-08 tablet by ity of tablet 00:00: mouth at [place] 00 bedtime. Medical Branch traZODone 0 Yes [id number] 150mg Take 1 [facility] 150 mg 3-08 105 tablet by ity of tablet 00:00: mouth at [place] 00 bedtime. Medical Branch metoprolol 2022-0 3- No [id number] 50mg Take 1 [facility] succinate 3- 10-31 tablet by ity of XL 50 mg 24 00:00: 00:00 mouth in [place] hr tablet 00 :00 the Medical morning. Branch cloNIDine 2022- No [id number] .3mg Take 1 U nivers 0.3 mg 3-05 02-31 tablet by ity of tablet 00:00: 00:00 mouth at [place] 00 :00 bedtime. Medical Branch traZODone 2022- No [id number] 150mg Take 1 [facility] 150 mg 3-05 02- 105 tablet by ity of tablet 00:00: 00:00 mouth at [place] 00 :00 bedtime. Medical Branch SITagliptin 2022-2022- No [id number] 100mg Take 1 [facility] phosphate 11-28 tablet by ity of (JANUVIA) 00:00: 00:00 mouth in [place] as 100 mg 00 :00 the Medical tablet morning. Branch metoprolol 2022- No [id number] 50mg Take 1 [facility] succinate 11-28 tablet by ity of XL 50 mg 24 00:00: 00:00 mouth in [place] hr tablet 00 :00 the Medical morning. Branch cloNIDine 2022- No [id number] .3mg Take 1 U nivers 0.3 mg 11-28 tablet by ity of tablet 00:00: 00:00 mouth at [place] 00 :00 bedtime. Medical Branch traZODone 2022- No [id number] 150mg Take 1 [facility] 150 mg 11-28 105 tablet by ity of tablet 00:00: 00:00 mouth at [place] 00 :00 bedtime. Medical Branch SITagliptin 2022- No [id number] 100mg Take 1 [facility] phosphate 11-28-31 tablet by ity of (JANUVIA) 00:00: 00:00 mouth in [place] as 100 mg 00 :00 the Medical tablet morning. Branch glipiZIDE 5 2022- No [id number] 5mg Take 1 [facility] mg tablet 11-28 07-24 tablet by ity of 00:00: 00:00 mouth 2 [place] 00 :00 (two) Medical times Branch daily before breakfast and dinner. pioglitazon 2022-2022- No [id number] 30mg Take 1 [facility] e 30 mg 11-28-24 tablet by ity of tablet 00:00: 00:00 mouth in [place] 00 :00 the Medical morning. Branch lisinopriL 2022- No [id number] 20mg Take 1 [facility] 20 mg 11-28-10 tablet by ity of tablet 00:00: 00:00 mouth in [place] 00 :00 the Medical morning. Branch levothyroxi 2022- No [id number] 300ug Take 1 [facility] ne 300 mcg 11-28-04 tablet by ity of tablet 00:00: 00:00 mouth [place] 00 :00 every Medical morning. Branch furosemide 2022- No [id number] 20mg Take 1 [facility] 20 mg 11-28-08 tablet by ity of tablet 00:00: 00:00 mouth [place] 00 :00 every Medical Saturday, Branch and Saturday in the evening. tirzepatide 2022- No [id number] 2.5mg inject 2.5 Univers (MOUNJARO) 308 03-31 mg under ity of 2.5 mg/0.5 00:00: 00:00 the skin [place] mL PnIj 00 :00 weekly. Medical Start Branch 2.5mg SC qWeek x 4 Weeks, then increase to 5 mg [place] qWeek tirzepatide 2022- No [id number] 5mg inject 5 Univers (MOUNJARO) 08 03-31 mg under ity of 5 mg/0.5 mL 00:00: 00:00 the skin [place] PnIj 00 :00 weekly. Medical Start Branch 2.5mg SC qWeek x 4 Weeks, then increase to 5 mg [place] qWeek HYDROcodone 2022-0 Yes 1{tbl} Take 1 Un magdiel -acetaminop 2-02 tablet by ity of hen 10-325 10:41: mouth 2 [place] mg tablet 33 (two) Medical times Branch daily. HYDROcodone 2023-0 Yes 1{tbl} Take 1 Un magdiel -acetaminop 2-02 tablet by ity of hen 10-325 10:41: mouth 2 [place] mg tablet 33 (two) Medical times Branch daily. HYDROcodone 3-0 Yes 1{tbl} Take 1 Un [place] -acetaminop 2-02 tablet by ity of hen 10-325 10:41: mouth 2 [place] mg tablet 33 (two) Medical times Branch daily. HYDROcodone 2023-0 Yes 1{tbl} Take 1 Un [place] -acetaminop 2-02 tablet by ity of hen 10-325 10:41: mouth 2 [place] mg tablet 33 (two) Medical times Branch daily. HYDROcodone 2023-0 Yes 1{tbl} Take 1 Un [place] -acetaminop 2-02 tablet by ity of hen 10-325 10:41: mouth 2 [place] mg tablet 33 (two) Medical times Branch daily. HYDROcodone 2023-0 Yes 1{tbl} Take 1 Un [place] -acetaminop 2-02 tablet by ity of hen 10-325 10:41: mouth 2 [place] mg tablet 33 (two) Medical times Branch daily. HYDROcodone 2023-0 Yes 1{tbl} Take 1 Un mag[place]iel -acetaminop 2-02 tablet by ity of hen 10-325 10:41: mouth 2 [place] mg tablet 33 (two) Medical times Branch daily. HYDROcodone 2023-0 Yes 1{tbl} Take 1 Un [place] -acetaminop 2-02 tablet by ity of hen 10-325 10:41: mouth 2 [place] mg tablet 33 (two) Medical times Branch daily. HYDROcodone 2023-0 Yes 1{tbl} Take 1 Un [place] -acetaminop 2-02 tablet by ity of hen 10-325 10:41: mouth 2 [place] mg tablet 33 (two) Medical times Branch daily. HYDROcodone 2023-0 Yes 1{tbl} Take 1 Un [place] -acetaminop 2-02 tablet by ity of hen 10-325 10:41: mouth 2 [place] mg tablet 33 (two) Medical times Branch daily. HYDROcodone 2023-0 Yes 1{tbl} Take 1 Un [place] -acetaminop 2-02 tablet by ity of hen 10-325 10:41: mouth 2 [place] mg tablet 33 (two) Medical times Branch daily. HYDROcodone 2023-0 Yes 1{tbl} Take 1 Un [place] -acetaminop 2-02 tablet by ity of hen 10-325 10:41: mouth 2 [place] mg tablet 33 (two) Medical times Branch daily. HYDROcodone 2023-0 Yes 1{tbl} Take 1 Un [place] -acetaminop 2-02 tablet by ity of hen 10-325 10:41: mouth 2 [place] mg tablet 33 (two) Medical times Branch daily. HYDROcodone 2023-0 Yes 1{tbl} Take 1 Un [place] -acetaminop 2-02 tablet by ity of hen 10-325 10:41: mouth 2 [place] mg tablet 33 (two) Medical times Branch daily. HYDROcodone 2023-0 Yes 1{tbl} Take 1 Un [place] -acetaminop 2-02 tablet by ity of hen 10-325 10:41: mouth 2 [place] mg tablet 33 (two) Medical times Branch daily. HYDROcodone 2023-0 Yes 1{tbl} Take 1 Un [place] -acetaminop 2-02 tablet by ity of hen 10-325 10:41: mouth 2 [place] mg tablet 33 (two) Medical times Branch daily. HYDROcodone 2023-0 Yes 1{tbl} Take 1 Un [place] -acetaminop 2-02 tablet by ity of hen 10-325 10:41: mouth 2 [place] mg tablet 33 (two) Medical times Branch daily. HYDROcodone 2023-0 Yes 1{tbl} Take 1 Un [place] -acetaminop 2-02 tablet by ity of hen 10-325 10:41: mouth 2 [place] mg tablet 33 (two) Medical times Branch daily. HYDROcodone 2023-0 Yes 1{tbl} Take 1 Un [place] -acetaminop 2-02 tablet by ity of hen 10-325 10:41: mouth 2 [place] mg tablet 33 (two) Medical times Branch daily. HYDROcodone 2023-0 Yes 1{tbl} Take 1 Un [place] -acetaminop 2-02 tablet by ity of hen 10-325 10:41: mouth 2 [place] mg tablet 33 (two) Medical times Branch daily. HYDROcodone 2023-0 Yes 1{tbl} Take 1 Un [place] -acetaminop 2-02 tablet by ity of hen 10-325 10:41: mouth 2 [place] mg tablet 33 (two) Medical times Branch daily. HYDROcodone 2023-0 Yes 1{tbl} Take 1 Un [place] -acetaminop 2-02 tablet by ity of hen 10-325 10:41: mouth 2 [place] mg tablet 33 (two) Medical times Branch daily. HYDROcodone 2023-0 Yes 1{tbl} Take 1 Un [place] -acetaminop 2-02 tablet by ity of hen 10-325 10:41: mouth 2 [place] mg tablet 33 (two) Medical times Branch daily. HYDROcodone 2023-0 Yes 1{tbl} Take 1 Un [place] -acetaminop 2-02 tablet by ity of hen 10-325 10:41: mouth 2 [place] mg tablet 33 (two) Medical times Branch daily. HYDROcodone 2023-0 Yes 1{tbl} Take 1 Un [place] -acetaminop 2-02 tablet by ity of hen 10-325 10:41: mouth 2 [place] mg tablet 33 (two) Medical times Branch daily. HYDROcodone 2023-0 Yes 1{tbl} Take 1 Un [place] -acetaminop 2-02 tablet by ity of hen 10-325 10:41: mouth 2 [place] mg tablet 33 (two) Medical times Branch daily. HYDROcodone 2023-0 Yes 1{tbl} Take 1 Un [place] -acetaminop 2-02 tablet by ity of hen 10-325 10:41: mouth 2 [place] mg tablet 33 (two) Medical times Branch daily. HYDROcodone 2023-0 Yes 1{tbl} Take 1 Un [place] -acetaminop 2-02 tablet by ity of hen 10-325 10:41: mouth 2 [place] mg tablet 33 (two) Medical times Branch daily. HYDROcodone 2023-0 Yes 1{tbl} Take 1 Un [place] -acetaminop 2-02 tablet by ity of hen 10-325 10:41: mouth 2 [place] mg tablet 33 (two) Medical times Branch daily. HYDROcodone 2023-0 Yes 1{tbl} Take 1 Un [place] -acetaminop 2-02 tablet by ity of hen 10-325 10:41: mouth 2 [place] mg tablet 33 (two) Medical times Branch daily. HYDROcodone 2023-0 Yes 1{tbl} Take 1 Un [place] -acetaminop 2-02 tablet by ity of hen 10-325 10:41: mouth 2 [place] mg tablet 33 (two) Medical times Branch daily. HYDROcodone 2023-0 Yes 1{tbl} Take 1 Un [place] -acetaminop 2-02 tablet by ity of hen 10-325 10:41: mouth 2 [place] mg tablet 33 (two) Medical times Branch daily. HYDROcodone 2023-0 Yes 1{tbl} Take 1 Un [place] -acetaminop 2-02 tablet by ity of hen 10-325 10:41: mouth 2 [place] mg tablet 33 (two) Medical times Branch daily. HYDROcodone 2023-0 Yes 1{tbl} Take 1 Un [place] -acetaminop 2-02 tablet by ity of hen 10-325 10:41: mouth 2 [place] mg tablet 33 (two) Medical times Branch daily. HYDROcodone 2023-0 Yes 1{tbl} Take 1 Un [place] -acetaminop 2-02 tablet by ity of hen 10-325 10:41: mouth 2 [place] mg tablet 33 (two) Medical times Branch daily. HYDROcodone 2023-0 Yes 1{tbl} Take 1 Un [place] -acetaminop 2-02 tablet by ity of hen 10-325 10:41: mouth 2 [place] mg tablet 33 (two) Medical times Branch daily. HYDROcodone 2023-0 Yes 1{tbl} Take 1 Un [place] -acetaminop 2-02 tablet by ity of hen 10-325 10:41: mouth 2 [place] mg tablet 33 (two) Medical times Branch daily. HYDROcodone 2023-0 Yes 1{tbl} Take 1 Un [place] -acetaminop 2-02 tablet by ity of hen 10-325 10:41: mouth 2 [place] mg tablet 33 (two) Medical times Branch daily. HYDROcodone 2023-0 Yes 1{tbl} Take 1 Un [place] -acetaminop 2-02 tablet by ity of hen 10-325 10:41: mouth 2 [place] mg tablet 33 (two) Medical times Branch daily. HYDROcodone 2023-0 Yes 1{tbl} Take 1 Un [place] -acetaminop 2-02 tablet by ity of hen 10-325 10:41: mouth 2 [place] mg tablet 33 (two) Medical times Branch daily. HYDROcodone 3-0 Yes 1{tbl} Take 1 Un [place] -acetaminop 2-02 tablet by ity of hen 10-325 10:41: mouth 2 [place] mg tablet 33 (two) Medical times Branch daily. HYDROcodone 3-0 Yes 1{tbl} Take 1 Un [place] -acetaminop 2-02 tablet by ity of hen 10-325 10:41: mouth 2 [place] mg tablet 33 (two) Medical times Branch daily. HYDROcodone 3-0 Yes 1{tbl} Take 1 Un [place] -acetaminop 2-02 tablet by ity of hen 10-325 10:41: mouth 2 [place] mg tablet 33 (two) Medical times Branch daily. mirtazapine 2022-0 Yes [id number] 15mg Take 1 [facility] 15 mg 2-02 tablet by ity of tablet 00:00: mouth at [place] 00 bedtime. Medical Branch metoprolol 2022-0 Yes [id number] 50mg Take 1 U nivers succinate 2-02 tablet by ity o f XL 50 mg 24 00:00: mouth in [place] hr tablet 00 the Medical morning. Branch levothyroxi 2022-0 Yes [id number] 300ug Take 1 [facility] ne 300 mcg 2-02 tablet by ity of tablet 00:00: mouth [place] 00 every Medical morning. Branch atorvastati 2022-0 Yes [id number] 40mg Take 1 [facility] n 40 mg 2-02 tablet by ity of tablet 00:00: mouth at [place] 00 bedtime. Medical Branch fenofibrate 2022-0 Yes [id number] 54mg Take 1 [facility] 54 mg 2-02 tablet by ity of tablet 00:00: mouth in [place] 00 the Medical morning. Branch mirtazapine 2022-0 Yes [id number] 15mg Take 1 [facility] 15 mg 2-02 tablet by ity of tablet 00:00: mouth at [place] 00 bedtime. Medical Branch metoprolol 3-0 Yes [id number] 50mg Take 1 U nivers succinate 2-02 tablet by ity o f XL 50 mg 24 00:00: mouth in [place] hr tablet 00 the Medical morning. Branch levothyroxi 2022-0 Yes [id number] 300ug Take 1 [facility] ne 300 mcg 2-02 tablet by ity of tablet 00:00: mouth [place] 00 every Medical morning. Branch atorvastati 2022-0 Yes [id number] 40mg Take 1 [facility] n 40 mg 2-02 tablet by ity of tablet 00:00: mouth at [place] 00 bedtime. Medical Branch fenofibrate 2022-0 Yes [id number] 54mg Take 1 [facility] 54 mg 2-02 tablet by ity of tablet 00:00: mouth in [place] 00 the Medical morning. Branch mirtazapine 2022-0 Yes [id number] 15mg Take 1 [facility] 15 mg 2-02 tablet by ity of tablet 00:00: mouth at [place] [address] bedtime. Medical Branch atorvastati 2022-0 Yes [id number] 40mg Take 1 [facility] n 40 mg 2-02 tablet by ity of tablet 00:00: mouth at [place] [address] bedtime. Medical Branch fenofibrate 2022-0 Yes [id number] 54mg Take 1 [facility] 54 mg 2-02 tablet by ity of tablet 00:00: mouth in [place] 00 the Medical morning. Branch mirtazapine 2022-0 Yes [id number] 15mg Take 1 [facility] 15 mg 2-02 tablet by ity of tablet 00:00: mouth at [place] [address] bedtime. Medical Branch atorvastati 2022-0 Yes [id number] 40mg Take 1 [facility] n 40 mg 2-02 tablet by ity of tablet 00:00: mouth at [place] [address] bedtime. Medical Branch fenofibrate 2022-0 Yes [id number] 54mg Take 1 [facility] 54 mg 2-02 tablet by ity of tablet 00:00: mouth in [place] 00 the Medical morning. Branch mirtazapine 2022-0 Yes [id number] 15mg Take 1 [facility] 15 mg 2-02 tablet by ity of tablet 00:00: mouth at [place] [address] bedtime. Medical Branch atorvastati 3-0 Yes [id number] 40mg Take 1 [facility] n 40 mg 2-02 tablet by ity of tablet 00:00: mouth at [place] [address] bedtime. Medical Branch fenofibrate 2022-0 Yes [id number] 54mg Take 1 [facility] 54 mg 2-02 tablet by ity of tablet 00:00: mouth in [place] 00 the Medical morning. Branch mirtazapine 2022-0 Yes [id number] 15mg Take 1 [facility] 15 mg 2-02 tablet by ity of tablet 00:00: mouth at [place] [address] bedtime. Medical Branch atorvastati 2022-0 Yes [id number] 40mg Take 1 [facility] n 40 mg 2-02 tablet by ity of tablet 00:00: mouth at [place] [address] bedtime. Medical Branch fenofibrate 2022-0 Yes [id number] 54mg Take 1 [facility] 54 mg 2-02 tablet by ity of tablet 00:00: mouth in [place] 00 the Medical morning. Branch mirtazapine 2022-0 Yes [id number] 15mg Take 1 [facility] 15 mg 2-02 tablet by ity of tablet 00:00: mouth at [place] [address] bedtime. Medical Branch atorvastati 2022-0 Yes [id number] 40mg Take 1 [facility] n 40 mg 2-02 tablet by ity of tablet 00:00: mouth at [place] [address] bedtime. Medical Branch fenofibrate 3-0 Yes [id number] 54mg Take 1 [facility] 54 mg 2-02 tablet by ity of tablet 00:00: mouth in [place] 00 the Medical morning. Branch mirtazapine 2022-0 Yes [id number] 15mg Take 1 [facility] 15 mg 2-02 tablet by ity of tablet 00:00: mouth at [place] [address] bedtime. Medical Branch atorvastati 2022-0 Yes [id number] 40mg Take 1 [facility] n 40 mg 2-02 tablet by ity of tablet 00:00: mouth at [place] [address] bedtime. Medical Branch fenofibrate 2022-0 Yes [id number] 54mg Take 1 [facility] 54 mg 2-02 tablet by ity of tablet 00:00: mouth in [place] 00 the Medical morning. Branch mirtazapine 2022-0 Yes [id number] 15mg Take 1 [facility] 15 mg 2-02 tablet by ity of tablet 00:00: mouth at [place] [address] bedtime. Medical Branch atorvastati 3-0 Yes [id number] 40mg Take 1 [facility] n 40 mg 2-02 tablet by ity of tablet 00:00: mouth at [place] [address] bedtime. Medical Branch fenofibrate 3-0 Yes [id number] 54mg Take 1 [facility] 54 mg 2-02 tablet by ity of tablet 00:00: mouth in [place] 00 the Medical morning. Branch mirtazapine 2022-0 Yes [id number] 15mg Take 1 [facility] 15 mg 2-02 tablet by ity of tablet 00:00: mouth at [place] [address] bedtime. Medical Branch atorvastati 2022-0 Yes [id number] 40mg Take 1 [facility] n 40 mg 2-02 tablet by ity of tablet 00:00: mouth at [place] [address] bedtime. Medical Branch fenofibrate 2022-0 Yes [id number] 54mg Take 1 [facility] 54 mg 2-02 tablet by ity of tablet 00:00: mouth in [place] 00 the Medical morning. Branch mirtazapine 2022-0 Yes [id number] 15mg Take 1 [facility] 15 mg 2-02 tablet by ity of tablet 00:00: mouth at [place] [address] bedtime. Medical Branch atorvastati 2022-0 Yes [id number] 40mg Take 1 [facility] n 40 mg 2-02 tablet by ity of tablet 00:00: mouth at [place] [address] bedtime. Medical Branch fenofibrate 3-0 Yes [id number] 54mg Take 1 [facility] 54 mg 2-02 tablet by ity of tablet 00:00: mouth in [place] 00 the Medical morning. Branch mirtazapine 2022-0 Yes [id number] 15mg Take 1 [facility] 15 mg 2-02 tablet by ity of tablet 00:00: mouth at [place] [address] bedtime. Medical Branch atorvastati 2022-0 Yes [id number] 40mg Take 1 [facility] n 40 mg 2-02 tablet by ity of tablet 00:00: mouth at [place] [address] bedtime. Medical Branch fenofibrate 2022-0 Yes [id number] 54mg Take 1 [facility] 54 mg 2-02 tablet by ity of tablet 00:00: mouth in [place] 00 the Medical morning. Branch mirtazapine 2022-0 Yes [id number] 15mg Take 1 [facility] 15 mg 2-02 tablet by ity of tablet 00:00: mouth at [place] [address] bedtime. Medical Branch atorvastati 3-0 Yes [id number] 40mg Take 1 [facility] n 40 mg 2-02 tablet by ity of tablet 00:00: mouth at [place] [address] bedtime. Medical Branch fenofibrate 3-0 Yes [id number] 54mg Take 1 [facility] 54 mg 2-02 tablet by ity of tablet 00:00: mouth in [place] 00 the Medical morning. Branch mirtazapine 2022-0 Yes [id number] 15mg Take 1 [facility] 15 mg 2-02 tablet by ity of tablet 00:00: mouth at [place] [address] bedtime. Medical Branch atorvastati 2022-0 Yes [id number] 40mg Take 1 [facility] n 40 mg 2-02 tablet by ity of tablet 00:00: mouth at [place] [address] bedtime. Medical Branch fenofibrate 2022-0 Yes [id number] 54mg Take 1 [facility] 54 mg 2-02 tablet by ity of tablet 00:00: mouth in [place] 00 the Medical morning. Branch mirtazapine 2022-0 Yes [id number] 15mg Take 1 [facility] 15 mg 2-02 tablet by ity of tablet 00:00: mouth at [place] [address] bedtime. Medical Branch atorvastati 2022-0 Yes [id number] 40mg Take 1 [facility] n 40 mg 2-02 tablet by ity of tablet 00:00: mouth at [place] [address] bedtime. Medical Branch fenofibrate 3-0 Yes [id number] 54mg Take 1 [facility] 54 mg 2-02 tablet by ity of tablet 00:00: mouth in [place] 00 the Medical morning. Branch mirtazapine 2022-0 Yes [id number] 15mg Take 1 [facility] 15 mg 2-02 tablet by ity of tablet 00:00: mouth at [place] [address] bedtime. Medical Branch atorvastati 2022-0 Yes [id number] 40mg Take 1 [facility] n 40 mg 2-02 tablet by ity of tablet 00:00: mouth at [place] [address] bedtime. Medical Branch fenofibrate 2022-0 Yes [id number] 54mg Take 1 [facility] 54 mg 2-02 tablet by ity of tablet 00:00: mouth in [place] 00 the Medical morning. Branch mirtazapine 2022-0 Yes [id number] 15mg Take 1 [facility] 15 mg 2-02 tablet by ity of tablet 00:00: mouth at [place] [address] bedtime. Medical Branch atorvastati 3-0 Yes [id number] 40mg Take 1 [facility] n 40 mg 2-02 tablet by ity of tablet 00:00: mouth at [place] [address] bedtime. Medical Branch fenofibrate 3-0 Yes [id number] 54mg Take 1 [facility] 54 mg 2-02 tablet by ity of tablet 00:00: mouth in [place] 00 the Medical morning. Branch mirtazapine 2022-0 Yes [id number] 15mg Take 1 [facility] 15 mg 2-02 tablet by ity of tablet 00:00: mouth at [place] [address] bedtime. Medical Branch atorvastati 2022-0 Yes [id number] 40mg Take 1 [facility] n 40 mg 2-02 tablet by ity of tablet 00:00: mouth at [place] [address] bedtime. Medical Branch fenofibrate 2022-0 Yes [id number] 54mg Take 1 [facility] 54 mg 2-02 tablet by ity of tablet 00:00: mouth in [place] 00 the Medical morning. Branch mirtazapine 2022-0 Yes [id number] 15mg Take 1 [facility] 15 mg 2-02 tablet by ity of tablet 00:00: mouth at [place] [address] bedtime. Medical Branch atorvastati 2022-0 Yes [id number] 40mg Take 1 [facility] n 40 mg 2-02 tablet by ity of tablet 00:00: mouth at [place] [address] bedtime. Medical Branch fenofibrate 3-0 Yes [id number] 54mg Take 1 [facility] 54 mg 2-02 tablet by ity of tablet 00:00: mouth in [place] 00 the Medical morning. Branch mirtazapine 2022-0 Yes [id number] 15mg Take 1 [facility] 15 mg 2-02 tablet by ity of tablet 00:00: mouth at [place] [address] bedtime. Medical Branch atorvastati 2022-0 Yes [id number] 40mg Take 1 [facility] n 40 mg 2-02 tablet by ity of tablet 00:00: mouth at [place] [address] bedtime. Medical Branch fenofibrate 2022-0 Yes [id number] 54mg Take 1 [facility] 54 mg 2-02 tablet by ity of tablet 00:00: mouth in [place] 00 the Medical morning. Branch mirtazapine 2022-0 Yes [id number] 15mg Take 1 [facility] 15 mg 2-02 tablet by ity of tablet 00:00: mouth at [place] [address] bedtime. Medical Branch atorvastati 3-0 Yes [id number] 40mg Take 1 [facility] n 40 mg 2-02 tablet by ity of tablet 00:00: mouth at [place] [address] bedtime. Medical Branch fenofibrate 3-0 Yes [id number] 54mg Take 1 [facility] 54 mg 2-02 tablet by ity of tablet 00:00: mouth in [place] 00 the Medical morning. Branch mirtazapine 2022-0 Yes [id number] 15mg Take 1 [facility] 15 mg 2-02 tablet by ity of tablet 00:00: mouth at [place] [address] bedtime. Medical Branch atorvastati 2022-0 Yes [id number] 40mg Take 1 [facility] n 40 mg 2-02 tablet by ity of tablet 00:00: mouth at [place] 00 bedtime. Medical Branch fenofibrate 2022-0 Yes [id number] 54mg Take 1 [facility] 54 mg 2-02 tablet by [facility] of tablet 00:00: mouth in [place] 00 the Medical morning. Branch mirtazapine 2022-0 Yes [id number] 15mg Take 1 [facility] 15 mg 2-02 tablet by [facility] of tablet 00:00: mouth at [place] 00 bedtime. Medical Branch mirtazapine 2022-0 Yes [id number] 15mg Take 1 [facility] 15 mg 2-02 tablet by [facility] of tablet 00:00: mouth at [place] 00 bedtime. Medical Branch mirtazapine 2022-0 Yes [id number] 15mg Take 1 [facility] 15 mg 2-02 tablet by [facility] of tablet 00:00: mouth at [place] 00 bedtime. Medical Branch mirtazapine 2022-0 Yes [id number] 15mg Take 1 [facility] 15 mg 2-02 tablet by [facility] of tablet 00:00: mouth at [place] 00 bedtime. Medical Branch mirtazapine 2022-0 3- No [id number] 15mg Take 1 [facility] 15 mg 2-02 07-25 tablet by [facility] of tablet 00:00: 00:00 mouth at [place] 00 :00 bedtime. Medical Branch atorvastati 2022-0 2022- No [id number] 40mg Take 1 [facility] n 40 mg 2-02 06-08 tablet by it[facility] of tablet 00:00: 00:00 mouth at [place] 00 :00 bedtime. Medical Branch fenofibrate 2022-0 3- No [id number] 54mg Take 1 [facility] 54 mg 2-02 06-08 tablet by it[facility] of tablet 00:00: 00:00 mouth in [place] 00 :00 the Medical morning. Branch atorvastati 3-0 3- No [id number] 40mg Take 1 [facility] n 40 mg 2-02 06-08 tablet by ity of tablet 00:00: 00:00 mouth at [place] 00 :00 bedtime. Medical Branch fenofibrate 3-0 3- No [id number] 54mg Take 1 [facility] 54 mg 2-02 06-08 tablet by it[facility] of tablet 00:00: 00:00 mouth in [place] 00 :00 the Medical morning. [place] metoprolol 2022-2022- No [id number] 50mg Take 1 [facility] succinate 10-25-08 tablet by it[facility] of XL 50 mg 24 00:00: 00:00 mouth in [place] hr tablet 00 :00 the Medical morning. [place] levothyroxi 2022-2022- No [id number] 300ug Take 1 [facility] ne 300 mcg 10-25 tablet by it[facility] of tablet 00:00: 00:00 mouth [place] 00 :00 every Medical morning. [place] metoprolol 2022-2022- No [id number] 50mg Take 1 [facility] succinate 10-25 tablet by it[facility] of XL 50 mg 24 00:00: 00:00 mouth in [place] hr tablet 00 :00 the Medical morning. [place] levothyroxi 2022-2022- No [id number] 300ug Take 1 [facility] ne 300 mcg 10-25 tablet by ity of tablet 00:00: 00:00 mouth [place] 00 :00 every Medical morning. [place] metoprolol 2022-2022- No [id number] 50mg Take 1 [facility] succinate 10-25 tablet by it[facility] of XL 50 mg 24 00:00: 00:00 mouth in [place] hr tablet 00 :00 the Medical morning. [place] levothyroxi 2022-2022- No [id number] 300ug Take 1 [facility] ne 300 mcg 10-25 tablet by ity of tablet 00:00: 00:00 mouth [place] 00 :00 every Medical morning. [place] metoprolol 2022-2022- No [id number] 50mg Take 1 [facility] succinate 10-25 tablet by it[facility] of XL 50 mg 24 00:00: 00:00 mouth in [place] hr tablet 00 :00 the Medical morning. [place] levothyroxi 2022-0 2022- No [id number] 300ug Take 1 [facility] ne 300 mcg 10-25-08 tablet by it[facility] of tablet 00:00: 00:00 mouth [place] 00 :00 every Medical morning. [place] levothyroxi 2022-0 Yes [id number] 200ug Take 1 [facility] ne 200 mcg 1-12 tablet by it[facility] of tablet 00:00: mouth [place] 00 every Medical morning. [place] levothyroxi 2023-0 2023- No [id number] 200ug Take 1 [facility] ne 200 mcg 10-04 tablet by it[facility] of tablet 00:00: 00:00 mouth [place] 00 :00 every Medical morning. Branch levothyroxi 2023-0 2023- No [id number] 200ug Take 1 [facility] ne 200 mcg 10-04 tablet by ity of tablet 00:00: 00:00 mouth [place] 00 :00 every Medical morning. Branch ondansetron 2023-0 Yes 4mg Take 1 [facility] ers 4 mg tablet 1-06 tablet by it[facility] of 00:00: mouth [place] 00 every 8 Medical (eight) Branch hours as needed for Nausea and Vomiting (N/V). ondansetron 2023-0 Yes 4mg Take 1 [facility] ers 4 mg tablet 1-06 tablet by ity of 00:00: mouth [place] 00 every 8 Medical (eight) Branch hours as needed for Nausea and Vomiting (N/V). ondansetron 2023-0 Yes 4mg Take 1 [facility] ers 4 mg tablet 1-06 tablet by ity of 00:00: mouth [place] 00 every 8 Medical (eight) Branch hours as needed for Nausea and Vomiting (N/V). ondansetron 2023-0 Yes 4mg Take 1 [facility] ers 4 mg tablet 1-06 tablet by ity of 00:00: mouth [place] 00 every 8 Medical (eight) Branch hours as needed for Nausea and Vomiting (N/V). ondansetron 2023-0 Yes 4mg Take 1 [facility] ers 4 mg tablet 1-06 tablet by ity of 00:00: mouth [place] 00 every 8 Medical (eight) Branch hours as needed for Nausea and Vomiting (N/V). ondansetron 2023-0 Yes 4mg Take 1 [facility] ers 4 mg tablet 1-06 tablet by ity of 00:00: mouth [place] 00 every 8 Medical (eight) Branch hours as needed for Nausea and Vomiting (N/V). ondansetron 2023-0 Yes 4mg Take 1 [facility] ers 4 mg tablet 1-06 tablet by ity of 00:00: mouth [place] 00 every 8 Medical (eight) Branch hours as needed for Nausea and Vomiting (N/V). ondansetron 2023-0 Yes 4mg Take 1 [facility] ers 4 mg tablet 1-06 tablet by ity of 00:00: mouth [place] 00 every 8 Medical (eight) Branch hours as needed for Nausea and Vomiting (N/V). ondansetron 2023-0 Yes 4mg Take 1 [facility] ers 4 mg tablet 1-06 tablet by ity of 00:00: mouth [place] 00 every 8 Medical (eight) Branch hours as needed for Nausea and Vomiting (N/V). ondansetron 2023-0 Yes 4mg Take 1 [facility] ers 4 mg tablet 1-06 tablet by ity of 00:00: mouth [place] 00 every 8 Medical (eight) Branch hours as needed for Nausea and Vomiting (N/V). ondansetron 2023-0 Yes 4mg Take 1 [facility] ers 4 mg tablet 1-06 tablet by ity of 00:00: mouth [place] 00 every 8 Medical (eight) Branch hours as needed for Nausea and Vomiting (N/V). ondansetron 2023-0 Yes 4mg Take 1 [facility] ers 4 mg tablet 1-06 tablet by ity of 00:00: mouth [place] 00 every 8 Medical (eight) Branch hours as needed for Nausea and Vomiting (N/V). ondansetron 3-0 3- No 4mg Take 1 Uni vers 4 mg tablet 1-06 03-11 tablet by it y of 00:00: 00:00 mouth [place] 00 :00 every 8 Medical (eight) Branch hours as needed for Nausea and Vomiting (N/V). levothyroxi 2021-09- No Thyroid 200ug Take 1 [facility] ne 2-16 -16 nodule tablet ity of (SYNTHROID, 00:00: 05:59 (200 mcg) [place] LEVOTHROID) 00 :00 by mouth 200 mcg daily for [place] tablet 30 days. n [facility] levothyroxi 2021-09- No 200ug Take 200 [facility] ne 200 mcg 2-16 -12 mcg by ity of tablet 00:00: 00:00 mouth. [place] 00 :00 Medical Branch calcitriol 2021-09- No Thyroid .25ug Take 1 [facility] (ROCALTROL) 2-15 -15 nodule capsule it y of 0.25 mcg 00:00: 05:59 (0.25 mcg) [place] capsule 00 :00 by mouth daily for [place] 30 days. n [facility] calcium 2021-09- No Thyroid 500mg Take 1 Uni vers carbonate 2-15 -15 nodule tablet ity o f (OS-DEBBY) 00:00: 05:59 (500 mg) [place] 500 mg 00 :00 by mouth 3 MD (1,250 mg (three) [place] calcium times a n carbonate day for 30 C[place] per tablet) days. [place] tablet lisinopriL 2021-09 Yes [id number] 20mg Take 1 U nivers 20 mg 2-09 tablet by ity of tablet 00:00: mouth in [place] 00 the Medical morning. [place] lisinopriL 2021-09 Yes [id number] 20mg Take 1 U nivers 20 mg 2-09 tablet by ity of tablet 00:00: mouth in [place] 00 the Medical morning. [place] lisinopriL 2021-09 Yes [id number] 20mg Take 1 U nivers 20 mg 2-09 tablet by ity of tablet 00:00: mouth in [place] 00 the Medical morning. [place] lisinopriL 2021-09 Yes [id number] 20mg Take 1 U nivers 20 mg 2-09 tablet by ity of tablet 00:00: mouth in [place] 00 the Medical morning. [place] lisinopriL 2021-09 Yes [id number] 20mg Take 1 U nivers 20 mg 2-09 tablet by ity of tablet 00:00: mouth in [place] 00 the Medical morning. [place] lisinopriL 2021-09- No [id number] 20mg Take 1 [facility] 20 mg 2-09 -08 tablet by ity of tablet 00:00: 00:00 mouth in [place] 00 :00 the Medical morning. [place] lisinopriL 2021-09- No [id number] 20mg Take 1 [facility] 20 mg 2-09 -08 tablet by ity of tablet 00:00: 00:00 mouth in [place] 00 :00 the Medical morning. Branch lisinopriL 2021-2022- No [id number] 20mg Take 1 [facility] 20 mg 2-05 26-08 tablet by ity of tablet 00:00: 00:00 mouth in [place] 00 :00 the Medical morning. [place] lisinopriL 2021-2022- No [id number] 20mg Take 1 [facility] 20 mg 2-05 26-08 tablet by ity of tablet 00:00: 00:00 mouth in [place] 00 :00 the Medical morning. Branch lactulose 2021-09 Yes [facility] (CHRONULAC) 1-15 ity of 10 gram/15 00:00: [place] mL solution 00 [facility] ondansetron 2021-09 Yes 4mg Take 1 Univ ers 4 mg tablet 0-27 tablet by ity of 00:00: mouth [place] 00 every 8 Medical (eight) Branch hours as needed for Nausea and Vomiting (N/V). ondansetron 2021-09 Yes 4mg Take 1 [facility] ers 4 mg tablet 0-27 tablet by ity of 00:00: mouth [place] 00 every 8 Medical (eight) Branch hours as needed for Nausea and Vomiting (N/V). ondansetron 2021-09 Yes Univer s (ZOFRAN) 4 0-27 ity of mg tablet 00:00: [place] 00 [facility] ondansetron 2021-093- No 4mg Take 1 Uni vers 4 mg tablet 0-27 01-05 tablet by it y of 00:00: 00:00 mouth [place] 00 :00 every 8 Medical (eight) Branch hours as needed for Nausea and Vomiting (N/V). HYDROcodone 2021-09 Yes TAKE 1 Univ ers -acetaminop 0-06 TABLET BY ity of hen (NORCO) 00:00: MOUTH [place] 10 mg-325 00 EVERY 6 MD mg per HOURS [place] tablet NEEDED FOR n PAIN (MAX [facility] OF 4 Center TABLETS DAILY)... cloNIDine Yes TAKE 1 Univer s HCl 9-30 TABLET BY ity of (CATAPRES) 00:00: MOUTH [place] 0.3 mg 00 EVERYDAY MD tablet AT BEDTIME [facility] ondansetron Yes [id number] 4mg Take 1 [facility] 4 mg tablet 9-16 tablet by ity of 00:00: mouth [place] 00 every 8 Medical (eight) Branch hours as needed for Nausea and Vomiting (N/V). SITagliptin Yes [id number] 100mg Take 1 [facility] (JANUVIA) 9-16 tablet by ity o f 100 mg 00:00: mouth in [place] tablet 00 the Medical morning. Branch traZODone Yes [id number] 150mg Take 1 [facility] 150 mg 9-16 105 tablet by ity of tablet 00:00: mouth at [place] 00 bedtime. Medical Branch mirtazapine 0 Yes [id number] 15mg Take 1 [facility] 15 mg 9-16 tablet by ity of tablet 00:00: mouth at [place] 00 bedtime. Medical Branch pioglitazon 0 Yes [id number] 30mg Take 1 [facility] e 30 mg 9-16 tablet by ity of tablet 00:00: mouth in [place] 00 the Medical morning. Branch glipiZIDE 2021-0 Yes [id number] 10mg Take 1 Un magdiel 10 mg 9-16 tablet by ity of tablet 00:00: mouth in [place] 00 the Medical morning. Branch cloNIDine 2021-0 Yes [id number] .3mg Take 1 Un [place] 0.3 mg 9-16 tablet by ity of tablet 00:00: mouth at [place] [address] bedtime. Medical Branch metoprolol 2021-0 Yes [id number] 50mg Take 1 U nivers succinate 9-16 tablet by ity o f XL 50 mg 24 00:00: mouth in [place] hr tablet 00 the Medical morning. Branch lisinopriL 0 Yes [id number] 20mg Take 1 U nivers 20 mg 9-16 tablet by ity of tablet 00:00: mouth in [place] the Medical morning. Branch ondansetron 0 Yes [id number] 4mg Take 1 [facility] 4 mg tablet 9-16 tablet by ity of 00:00: mouth [place] 00 every 8 Medical (eight) Branch hours as needed for Nausea and Vomiting (N/V). SITagliptin 0 Yes [id number] 100mg Take 1 [facility] (JANUVIA) 9-16 tablet by ity o f 100 mg 00:00: mouth in [place] tablet 00 the Medical morning. Branch traZODone 0 Yes [id number] 150mg Take 1 [facility] 150 mg 9-16 105 tablet by ity of tablet 00:00: mouth at [place] [address] bedtime. Medical Branch mirtazapine 0 Yes [id number] 15mg Take 1 [facility] 15 mg 9-16 tablet by ity of tablet 00:00: mouth at [place] [address] bedtime. Medical Branch pioglitazon 2021-0 Yes [id number] 30mg Take 1 [facility] e 30 mg 9-16 tablet by ity of tablet 00:00: mouth in [place] 00 the Medical morning. Branch glipiZIDE Yes [id number] 10mg Take 1 Un mag[facility]iel 10 mg 9-16 tablet by ity of tablet 00:00: mouth in [place] 00 the Medical morning. Branch cloNIDine 0 Yes [id number] .3mg Take 1 Un [place] 0.3 mg 9-16 tablet by ity of tablet 00:00: mouth at [place] 00 bedtime. Medical Branch metoprolol 0 Yes [id number] 50mg Take 1 U nivers succinate 9-16 tablet by ity o f XL 50 mg 24 00:00: mouth in [place] hr tablet 00 the Medical morning. Branch lisinopriL Yes [id number] 20mg Take 1 U nivers 20 mg 9-16 tablet by ity of tablet 00:00: mouth in [place] 00 the Medical morning. Branch ondansetron Yes [id number] 4mg Take 1 [facility] 4 mg tablet 9-16 tablet by ity of 00:00: mouth [place] 00 every 8 Medical (eight) Branch hours as needed for Nausea and Vomiting (N/V). SITagliptin Yes [id number] 100mg Take 1 [facility] (JANUVIA) 9-16 tablet by ity o f 100 mg 00:00: mouth in [place] tablet 00 the Medical morning. Branch traZODone Yes [id number] 150mg Take 1 [facility] 150 mg 9-16 105 tablet by ity of tablet 00:00: mouth at [place] [address] bedtime. Medical Branch mirtazapine 0 Yes [id number] 15mg Take 1 [facility] 15 mg 9-16 tablet by ity of tablet 00:00: mouth at [place] 00 bedtime. Medical Branch pioglitazon Yes [id number] 30mg Take 1 [facility] e 30 mg 9-16 tablet by ity of tablet 00:00: mouth in [place] 00 the Medical morning. Branch glipiZIDE 0 Yes [id number] 10mg Take 1 Un magdile 10 mg 9-16 tablet by ity of tablet 00:00: mouth in [place] 00 the Medical morning. Branch cloNIDine 2021-0 Yes [id number] .3mg Take 1 Un [place] 0.3 mg 9-16 tablet by ity of tablet 00:00: mouth at [place] [address] bedtime. Medical Branch metoprolol 2021-0 Yes [id number] 50mg Take 1 U nivers succinate 9-16 tablet by ity o f XL 50 mg 24 00:00: mouth in [place] hr tablet 00 the Medical morning. Branch lisinopriL Yes [id number] 20mg Take 1 U nivers 20 mg 9-16 tablet by ity of tablet 00:00: mouth in [place] 00 the Medical morning. Branch ondansetron Yes [id number] 4mg Take 1 [facility] 4 mg tablet 9-16 tablet by ity of 00:00: mouth [place] 00 every 8 Medical (eight) Branch hours as needed for Nausea and Vomiting (N/V). SITagliptin Yes [id number] 100mg Take 1 [facility] (JANUVIA) 9-16 tablet by ity o f 100 mg 00:00: mouth in [place] tablet 00 the Medical morning. Branch traZODone Yes [id number] 150mg Take 1 [facility] 150 mg 9-16 105 tablet by ity of tablet 00:00: mouth at [place] 00 bedtime. Medical Branch mirtazapine Yes [id number] 15mg Take 1 [facility] 15 mg 9-16 tablet by ity of tablet 00:00: mouth at [place] 00 bedtime. Medical Branch pioglitazon Yes [id number] 30mg Take 1 [facility] e 30 mg 9-16 tablet by ity of tablet 00:00: mouth in [place] 00 the Medical morning. Branch glipiZIDE Yes [id number] 10mg Take 1 Un magdiel 10 mg 9-16 tablet by ity of tablet 00:00: mouth in [place] 00 the Medical morning. Branch cloNIDine Yes [id number] .3mg Take 1 Un [place] 0.3 mg 9-16 tablet by ity of tablet 00:00: mouth at [place] 00 bedtime. Medical Branch metoprolol 0 Yes [id number] 50mg Take 1 U nivers succinate 9-16 tablet by ity o f XL 50 mg 24 00:00: mouth in [place] hr tablet 00 the Medical morning. Branch lisinopriL 0 Yes [id number] 20mg Take 1 U nivers 20 mg 9-16 tablet by ity of tablet 00:00: mouth in [place] 00 the Medical morning. Branch ondansetron 0 Yes [id number] 4mg Take 1 [facility] 4 mg tablet 9-16 tablet by ity of 00:00: mouth [place] 00 every 8 Medical (eight) Branch hours as needed for Nausea and Vomiting (N/V). SITagliptin 2021-0 Yes [id number] 100mg Take 1 [facility] (JANUVIA) 9-16 tablet by ity o f 100 mg 00:00: mouth in [place] tablet 00 the Medical morning. Branch traZODone 2021-0 Yes [id number] 150mg Take 1 [facility] 150 mg 9-16 105 tablet by ity of tablet 00:00: mouth at [place] [address] bedtime. Medical Branch mirtazapine 2021-0 Yes [id number] 15mg Take 1 [facility] 15 mg 9-16 tablet by ity of tablet 00:00: mouth at [place] [address] bedtime. Medical Branch pioglitazon 2021-0 Yes [id number] 30mg Take 1 [facility] e 30 mg 9-16 tablet by ity of tablet 00:00: mouth in [place] 00 the Medical morning. Branch glipiZIDE 2021-0 Yes [id number] 10mg Take 1 Un magdiel 10 mg 9-16 tablet by ity of tablet 00:00: mouth in [place] 00 the Medical morning. Branch cloNIDine 2021-0 Yes [id number] .3mg Take 1 Un [place] 0.3 mg 9-16 tablet by ity of tablet 00:00: mouth at [place] [address] bedtime. Medical Branch metoprolol 2021-0 Yes [id number] 50mg Take 1 U nivers succinate 9-16 tablet by ity o f XL 50 mg 24 00:00: mouth in [place] hr tablet 00 the Medical morning. Branch lisinopriL 2021-0 Yes [id number] 20mg Take 1 U nivers 20 mg 9-16 tablet by ity of tablet 00:00: mouth in [place] 00 the Medical morning. Branch ondansetron 2021-0 Yes [id number] 4mg Take 1 [facility] 4 mg tablet 9-16 tablet by ity of 00:00: mouth [place] 00 every 8 Medical (eight) Branch hours as needed for Nausea and Vomiting (N/V). SITagliptin 2021-0 Yes [id number] 100mg Take 1 [facility] (JANUVIA) 9-16 tablet by ity o f 100 mg 00:00: mouth in [place] tablet 00 the Medical morning. Branch traZODone 2022-0 Yes [id number] 150mg Take 1 [facility] 150 mg 9-16 105 tablet by ity of tablet 00:00: mouth at [place] 00 bedtime. Medical Branch mirtazapine Yes [id number] 15mg Take 1 [facility] 15 mg 9-16 tablet by ity of tablet 00:00: mouth at [place] 00 bedtime. Medical Branch pioglitazon Yes [id number] 30mg Take 1 [facility] e 30 mg 9-16 tablet by ity of tablet 00:00: mouth in [place] 00 the Medical morning. Branch glipiZIDE Yes [id number] 10mg Take 1 Un magdiel 10 mg 9-16 tablet by ity of tablet 00:00: mouth in [place] 00 the Medical morning. Branch cloNIDine Yes [id number] .3mg Take 1 Un [place] 0.3 mg 9-16 tablet by ity of tablet 00:00: mouth at [place] 00 bedtime. Medical Branch metoprolol Yes [id number] 50mg Take 1 U nivers succinate 9-16 tablet by ity o f XL 50 mg 24 00:00: mouth in [place] hr tablet 00 the Medical morning. Branch lisinopriL Yes [id number] 20mg Take 1 U nivers 20 mg 9-16 tablet by ity of tablet 00:00: mouth in [place] 00 the Medical morning. Branch ondansetron Yes [id number] 4mg Take 1 [facility] 4 mg tablet 9-16 tablet by ity of 00:00: mouth [place] 00 every 8 Medical (eight) Branch hours as needed for Nausea and Vomiting (N/V). SITagliptin Yes [id number] 100mg Take 1 [facility] (JANUVIA) 9-16 tablet by ity o f 100 mg 00:00: mouth in [place] tablet 00 the Medical morning. Branch traZODone Yes [id number] 150mg Take 1 [facility] 150 mg 9-16 105 tablet by ity of tablet 00:00: mouth at [place] 00 bedtime. Medical Branch mirtazapine Yes [id number] 15mg Take 1 [facility] 15 mg 9-16 tablet by ity of tablet 00:00: mouth at [place] 00 bedtime. Medical Branch pioglitazon Yes [id number] 30mg Take 1 [facility] e 30 mg 9-16 tablet by ity of tablet 00:00: mouth in [place] 00 the Medical morning. Branch glipiZIDE Yes [id number] 10mg Take 1 Un magdiel 10 mg 9-16 tablet by ity of tablet 00:00: mouth in [place] 00 the Medical morning. Branch cloNIDine 0 Yes [id number] .3mg Take 1 Un [place] 0.3 mg 9-16 tablet by ity of tablet 00:00: mouth at [place] 00 bedtime. Medical Branch metoprolol Yes [id number] 50mg Take 1 U nivers succinate 9-16 tablet by ity o f XL 50 mg 24 00:00: mouth in [place] hr tablet 00 the Medical morning. Branch lisinopriL Yes [id number] 20mg Take 1 U nivers 20 mg 9-16 tablet by ity of tablet 00:00: mouth in [place] 00 the Medical morning. Branch ondansetron Yes [id number] 4mg Take 1 [facility] 4 mg tablet 9-16 tablet by ity of 00:00: mouth [place] 00 every 8 Medical (eight) Branch hours as needed for Nausea and Vomiting (N/V). SITagliptin Yes [id number] 100mg Take 1 [facility] (JANUVIA) 9-16 tablet by ity o f 100 mg 00:00: mouth in [place] tablet 00 the Medical morning. Branch traZODone Yes [id number] 150mg Take 1 [facility] 150 mg 9-16 105 tablet by ity of tablet 00:00: mouth at [place] [address] bedtime. Medical Branch mirtazapine Yes [id number] 15mg Take 1 [facility] 15 mg 9-16 tablet by ity of tablet 00:00: mouth at [place] 00 bedtime. Medical Branch pioglitazon Yes [id number] 30mg Take 1 [facility] e 30 mg 9-16 tablet by ity of tablet 00:00: mouth in [place] 00 the Medical morning. Branch glipiZIDE Yes [id number] 10mg Take 1 Un mag[facility] 10 mg 9-16 tablet by ity of tablet 00:00: mouth in [place] 00 the Medical morning. Branch cloNIDine 2021-0 Yes [id number] .3mg Take 1 Un [place] 0.3 mg 9-16 tablet by ity of tablet 00:00: mouth at [place] [address] bedtime. Medical Branch metoprolol 0 Yes [id number] 50mg Take 1 U nivers succinate 9-16 tablet by ity o f XL 50 mg 24 00:00: mouth in [place] hr tablet 00 the Medical morning. Branch lisinopriL 2021-0 Yes [id number] 20mg Take 1 U nivers 20 mg 9-16 tablet by ity of tablet 00:00: mouth in [place] 00 the Medical morning. Branch ondansetron 0 Yes [id number] 4mg Take 1 [facility] 4 mg tablet 9-16 tablet by ity of 00:00: mouth [place] 00 every 8 Medical (eight) Branch hours as needed for Nausea and Vomiting (N/V). SITagliptin 0 Yes [id number] 100mg Take 1 [facility] (JANUVIA) 9-16 tablet by ity o f 100 mg 00:00: mouth in [place] tablet 00 the Medical morning. Branch traZODone 0 Yes [id number] 150mg Take 1 [facility] 150 mg 9-16 105 tablet by ity of tablet 00:00: mouth at [place] [address] bedtime. Medical Branch mirtazapine 2021-0 Yes [id number] 15mg Take 1 [facility] 15 mg 9-16 tablet by ity of tablet 00:00: mouth at [place] [address] bedtime. Medical Branch pioglitazon 0 Yes [id number] 30mg Take 1 [facility] e 30 mg 9-16 tablet by ity of tablet 00:00: mouth in [place] 00 the Medical morning. Branch glipiZIDE 2021-0 Yes [id number] 10mg Take 1 Un [facility] 10 mg 9-16 tablet by ity of tablet 00:00: mouth in [place] 00 the Medical morning. Branch cloNIDine 2021-0 Yes [id number] .3mg Take 1 Un [place] 0.3 mg 9-16 tablet by ity of tablet 00:00: mouth at [place] [address] bedtime. Medical Branch metoprolol 2021-0 Yes [id number] 50mg Take 1 U nivers succinate 9-16 tablet by ity o f XL 50 mg 24 00:00: mouth in [place] hr tablet 00 the Medical morning. Branch lisinopriL 2021-0 Yes [id number] 20mg Take 1 U nivers 20 mg 9-16 tablet by ity of tablet 00:00: mouth in [place] 00 the Medical morning. Branch SITagliptin 2021-0 Yes [id number] 100mg Take 1 [facility] (JANUVIA) 9-16 tablet by ity o f 100 mg 00:00: mouth in [place] tablet 00 the Medical morning. Branch traZODone 2021-0 Yes [id number] 150mg Take 1 [facility] 150 mg 9-16 105 tablet by ity of tablet 00:00: mouth at [place] [address] bedtime. Medical Branch mirtazapine 2021-0 Yes [id number] 15mg Take 1 [facility] 15 mg 9-16 tablet by ity of tablet 00:00: mouth at [place] 00 bedtime. Medical Branch pioglitazon 2021-0 Yes [id number] 30mg Take 1 [facility] e 30 mg 9-16 tablet by ity of tablet 00:00: mouth in [place] 00 the Medical morning. Branch glipiZIDE 2021-0 Yes [id number] 10mg Take 1 Un [facility] 10 mg 9-16 tablet by ity of tablet 00:00: mouth in [place] 00 the Medical morning. Branch cloNIDine 2021-0 Yes [id number] .3mg Take 1 Un [place] 0.3 mg 9-16 tablet by ity of tablet 00:00: mouth at [place] [address] bedtime. Medical Branch metoprolol 2021-0 Yes [id number] 50mg Take 1 U nivers succinate 9-16 tablet by ity o f XL 50 mg 24 00:00: mouth [place] hr tablet 00 the Medical morning. Branch lisinopriL 2021-0 Yes [id number] 20mg Take 1 U nivers 20 mg 9-16 tablet by ity of tablet 00:00: mouth in [place] 00 the Medical morning. Branch SITagliptin 2021-0 Yes [id number] 100mg Take 1 [facility] (JANUVIA) 9-16 tablet by ity o f 100 mg 00:00: mouth in [place] tablet 00 the Medical morning. Branch traZODone 2021-0 Yes [id number] 150mg Take 1 [facility] 150 mg 9-16 105 tablet by ity of tablet 00:00: mouth at [place] [address] bedtime. Medical Branch mirtazapine 2021-0 Yes [id number] 15mg Take 1 [facility] 15 mg 9-16 tablet by ity of tablet 00:00: mouth at [place] [address] bedtime. Medical Branch pioglitazon 2021-0 Yes [id number] 30mg Take 1 [facility] e 30 mg 9-16 tablet by ity of tablet 00:00: mouth in [place] 00 the Medical morning. Branch glipiZIDE 2021-0 Yes [id number] 10mg Take 1 Un mag[facility] 10 mg 9-16 tablet by ity of tablet 00:00: mouth in [place] 00 the Medical morning. Branch cloNIDine 2021-0 Yes [id number] .3mg Take 1 Un [place] 0.3 mg 9-16 tablet by ity of tablet 00:00: mouth at [place] [address] bedtime. Medical Branch metoprolol 2021-0 Yes [id number] 50mg Take 1 U nivers succinate 9-16 tablet by ity o f XL 50 mg 24 00:00: mouth in [place] hr tablet 00 the Medical morning. Branch SITagliptin 2021-0 Yes [id number] 100mg Take 1 [facility] (JANUVIA) 9-16 tablet by ity o f 100 mg 00:00: mouth in [facility] 00 the Medical morning. Branch traZODone 2021-0 Yes [id number] 150mg Take 1 [facility] 150 mg 9-16 105 tablet by ity of tablet 00:00: mouth at [place] [address] bedtime. Medical Branch mirtazapine 2021-0 Yes [id number] 15mg Take 1 [facility] 15 mg 9-16 tablet by ity of tablet 00:00: mouth at [place] [address] bedtime. Medical Branch pioglitazon 2021-0 Yes [id number] 30mg Take 1 [facility] e 30 mg 9-16 tablet by ity of tablet 00:00: mouth in [place] 00 the Medical morning. Branch glipiZIDE 2021-0 Yes [id number] 10mg Take 1 Un [facility] 10 mg 9-16 tablet by ity of tablet 00:00: mouth in [place] 00 the Medical morning. Branch cloNIDine 2021-0 Yes [id number] .3mg Take 1 [facility] magdiel 0.3 mg 9-16 tablet by it[facility] of tablet 00:00: mouth at [place] [id number] bedtime. Medical Branch metoprolol 2021-0 Yes [id number] 50mg Take 1 U nivers succinate 9-16 tablet by ity o f XL 50 mg 24 00:00: mouth in [place] hr tablet 00 the Medical morning. Branch SITagliptin 2021-0 Yes [id number] 100mg Take 1 [facility] (JANUVIA) 9-16 tablet by ity o f 100 mg 00:00: mouth in [place] tablet 00 the Medical morning. Branch traZODone Yes [id number] 150mg Take 1 [facility] 150 mg 9-16 105 tablet by ity of tablet 00:00: mouth at [place] 00 bedtime. Medical Branch mirtazapine 0 Yes [id number] 15mg Take 1 [facility] 15 mg 9-16 tablet by ity of tablet 00:00: mouth at [place] 00 bedtime. Medical Branch pioglitazon Yes [id number] 30mg Take 1 [facility] e 30 mg 9-16 tablet by ity of tablet 00:00: mouth in [place] 00 the Medical morning. Branch glipiZIDE Yes [id number] 10mg Take 1 [facility] 10 mg 9-16 tablet by it[facility] of tablet 00:00: mouth in [place] 00 the Medical morning. Branch cloNIDine 0 Yes [id number] .3mg Take 1 [facility] 0.3 mg 9-16 tablet by ity of tablet 00:00: mouth at [place] 00 bedtime. Medical Branch metoprolol Yes [id number] 50mg Take 1 U nivers succinate 9-16 tablet by ity o f XL 50 mg 24 00:00: mouth in [place] hr tablet 00 the Medical morning. Branch SITagliptin Yes [id number] 100mg Take 1 [facility] (JANUVIA) 9-16 tablet by ity o f 100 mg 00:00: mouth in [place] tablet 00 the Medical morning. Branch traZODone Yes [id number] 150mg Take 1 [facility] 150 mg 9-16 105 tablet by ity of tablet 00:00: mouth at [place] 00 bedtime. Medical Branch pioglitazon Yes [id number] 30mg Take 1 [facility] e 30 mg 9-16 tablet by ity of tablet 00:00: mouth in [place] 00 the Medical morning. Branch glipiZIDE 0 Yes [id number] 10mg Take 1 [facility] 10 mg 9-16 tablet by it[facility] of tablet 00:00: mouth in [place] 00 the Medical morning. Branch cloNIDine 2021-0 Yes [id number] .3mg Take 1 [facility] 0.3 mg 9-16 tablet by ity of tablet 00:00: mouth at [place] 00 bedtime. Medical Branch SITagliptin Yes [id number] 100mg Take 1 [facility] (JANUVIA) 9-16 tablet by ity o f 100 mg 00:00: mouth in [place] tablet 00 the morning. Branch traZODone Yes [id number] 150mg Take 1 [facility] 150 mg 9-16 105 tablet by ity of tablet 00:00: mouth at [place] 00 bedtime. Medical Branch pioglitazon Yes [id number] 30mg Take 1 [facility] e 30 mg 9-16 tablet by ity of tablet 00:00: mouth in [place] 00 the morning. Branch glipiZIDE Yes [id number] 10mg Take 1 [facility] mag[facility] 10 mg 9-16 tablet by ity of tablet 00:00: mouth in [place] 00 the morning. Branch cloNIDine Yes [id number] .3mg Take 1 [facility] 0.3 mg 9-16 tablet by ity of tablet 00:00: mouth at [place] 00 bedtime. Medical Branch metoprolol Yes TAKE 1 Unive rs succinate 9-16 TABLET BY ity o f (TOPROL XL) 00:00: MOUTH [place] 50 mg 24 hr 00 EVERY DAY MD tablet IN THE [facility] lisinopril Yes TAKE 1 Unive rs (PRINIVIL,Z 9-16 TABLET BY ity of ESTRIL) 20 00:00: MOUTH [place] mg tablet 00 EVERY DAY MD IN THE [facility] Januvia 100 Yes TAKE 1 Univ ers mg tablet 9-16 TABLET BY ity o f 00:00: MOUTH [place] 00 EVERY DAY [facility] traZODone Yes TAKE 1 Univer s (DESYREL) 9-16 TABLET BY ity o f 150 mg 00:00: MOUTH [place] tablet 00 EVERYDAY MD AT BEDTIME [facility] pioglitazon Yes TAKE 1 Univ ers e (ACTOS) 9-16 TABLET BY ity o f 30 mg 00:00: MOUTH [place] tablet 00 EVERY DAY [facility] glipiZIDE Yes TAKE 1 Univer s (GLUCOTROL) 9-16 TABLET BY ity of 10 mg 00:00: MOUTH [place] tablet 00 EVERY DAY MD [facility] SITagliptin 2021-2022- No [id number] 100mg Take 1 [facility] (JANUVIA) 06-08 tablet by ity of 100 mg 00:00: 00:00 mouth in [place] tablet 00 :00 the Medical morning. Branch traZODone 2021-2022- No [id number] 150mg Take 1 [facility] 150 mg 06-08 105 tablet by ity of tablet 00:00: 00:00 mouth at [place] 00 :00 bedtime. Medical Branch pioglitazon 2021-2022- No [id number] 30mg Take 1 [facility] e 30 mg 06-08 tablet by ity of tablet 00:00: 00:00 mouth in [place] 00 :00 the Medical morning. Branch glipiZIDE 2021-2022- No [id number] 10mg Take 1 U nivers 10 mg 06-08 tablet by ity of tablet 00:00: 00:00 mouth in [place] 00 :00 the Medical morning. Branch cloNIDine 2021-2022- No [id number] .3mg Take 1 U nivers 0.3 mg 06-08 tablet by ity of tablet 00:00: 00:00 mouth at [place] 00 :00 bedtime. Medical Branch SITagliptin 2021-2022- No [id number] 100mg Take 1 [facility] (JANUVIA) 06-08 tablet by ity of 100 mg 00:00: 00:00 mouth in [place] tablet 00 :00 the Medical morning. Branch traZODone 2021-2022- No [id number] 150mg Take 1 [facility] 150 mg 06-08 105 tablet by ity of tablet 00:00: 00:00 mouth at [place] 00 :00 bedtime. Medical Branch pioglitazon 2021-2022- No [id number] 30mg Take 1 [facility] e 30 mg 06-08 tablet by ity of tablet 00:00: 00:00 mouth in [place] 00 :00 the Medical morning. Branch glipiZIDE 2021-2022- No [id number] 10mg Take 1 U nivers 10 mg 06-08 tablet by ity of tablet 00:00: 00:00 mouth in [place] 00 :00 the Medical morning. Branch cloNIDine 2022022- No [id number] .3mg Take 1 U nivers 0.3 mg 06-08 tablet by ity of tablet 00:00: 00:00 mouth at [place] 00 :00 bedtime. Medical Branch SITagliptin 2021-2022- No [id number] 100mg Take 1 [facility] (JANUVIA) 06-08-08 tablet by ity of 100 mg 00:00: 00:00 mouth in [place] tablet 00 :00 the Medical morning. Branch traZODone 2021-2022- No [id number] 150mg Take 1 [facility] 150 mg 06-08 105 tablet by ity of tablet 00:00: 00:00 mouth at [place] 00 :00 bedtime. Medical Branch pioglitazon 2021-2022- No [id number] 30mg Take 1 [facility] e 30 mg 06-08 tablet by ity of tablet 00:00: 00:00 mouth in [place] 00 :00 the Medical morning. Branch glipiZIDE 2021-2022- No [id number] 10mg Take 1 U nivers 10 mg 06-08 tablet by ity of tablet 00:00: 00:00 mouth in [place] 00 :00 the Medical morning. Branch cloNIDine 2022- No [id number] .3mg Take 1 U nivers 0.3 mg 06-08 tablet by ity of tablet 00:00: 00:00 mouth at [place] 00 :00 bedtime. Medical Branch SITagliptin 2021-2022- No [id number] 100mg Take 1 [facility] (JANUVIA) 06-08 tablet by ity of 100 mg 00:00: 00:00 mouth in [place] tablet 00 :00 the Medical morning. Branch traZODone 2021-2022- No [id number] 150mg Take 1 [facility] 150 mg 06-08 105 tablet by ity of tablet 00:00: 00:00 mouth at [place] 00 :00 bedtime. Medical Branch pioglitazon 2022- No [id number] 30mg Take 1 [facility] e 30 mg 06-0808 tablet by ity of tablet 00:00: 00:00 mouth in [place] 00 :00 the Medical morning. Branch glipiZIDE 2021-2022- No [id number] 10mg Take 1 U nivers 10 mg 06-08 tablet by ity of tablet 00:00: 00:00 mouth in [place] 00 :00 the Medical morning. Branch cloNIDine 2022- No [id number] .3mg Take 1 U nivers 0.3 mg 06-08 tablet by ity of tablet 00:00: 00:00 mouth at [place] 00 :00 bedtime. Medical Branch mirtazapine 2022- No [id number] 15mg Take 1 [facility] 15 mg 06-08- tablet by ity of tablet 00:00: 00:00 mouth at [place] 00 :00 bedtime. Medical Branch metoprolol 2022- No [id number] 50mg Take 1 [facility] succinate 06-08 tablet by ity of XL 50 mg 24 00:00: 00:00 mouth in [place] hr tablet 00 :00 the Medical morning. Branch mirtazapine 2022- No [id number] 15mg Take 1 [facility] 15 mg 06-08 tablet by ity of tablet 00:00: 00:00 mouth at [place] 00 :00 bedtime. Medical Branch metoprolol 2022- No [id number] 50mg Take 1 [facility] succinate 06-08 tablet by ity of XL 50 mg 24 00:00: 00:00 mouth in [place] hr tablet 00 :00 the Medical morning. Branch lisinopriL 2021- No [id number] 20mg Take 1 [facility] 20 mg 06-08- tablet by ity of tablet 00:00: 00:00 mouth in [place] 00 :00 the Medical morning. Branch ondansetron 2021- No [id number] 4mg Take 1 [facility] 4 mg tablet 06-08 10-27 tablet by it y of 00:00: 00:00 mouth [place] 00 :00 every 8 Medical (eight) Branch hours as needed for Nausea and Vomiting (N/V). mirtazapine Yes TAKE 1 Univ ers (REMERON) 8-31 TABLET BY ity o f 15 mg 00:00: MOUTH [place] tablet 00 EVERYDAY MD AT BEDTIME [facility] ondansetron 2021- No [id number] 4mg Take 1 [facility] 4 mg tablet 7-26 09-16 tablet by it y of 00:00: 00:00 mouth [place] 00 :00 every 8 Medical (eight) Branch hours. cloNIDine 2021- No [id number] .3mg Take 1 U nivers 0.3 mg 6-17 -16 tablet by ity of tablet 00:00: 00:00 mouth at [place] 00 :00 bedtime. Medical Branch JANUVIA 100 2021- No [id number] TAKE 1 [facility] mg tablet -19 06-16 TABLET BY ity of 00:00: 00:00 MOUTH [place] 00 :00 EVERY DAY Medical Branch MIRTAZAPINE 2021- No [id number] TAKE 1 [facility] 15 mg 5-27 -16 TABLET BY ity of tablet 00:00: 00:00 MOUTH [place] 00 :00 EVERYDAY Medical AT BEDTIME Branch TRAZODONE 2021- No [id number] TAKE 1 [facility] 150 mg 4-29 -16 105 TABLET BY ity of tablet 00:00: 00:00 MOUTH [place] 00 :00 EVERYDAY Medical AT BEDTIME Branch PIOGLITAZON 2021- No [id number] TAKE 1 [facility] E 30 mg 4-21 -16 TABLET BY ity of tablet 00:00: 00:00 MOUTH [place] 00 :00 EVERY DAY Medical Branch GLIPIZIDE 2021- No [id number] TAKE 1 U nivers 10 mg 3-10 -16 TABLET BY ity of tablet 00:00: 00:00 MOUTH [place] 00 :00 EVERY DAY Medical Branch HYDROcodone Yes 1{tbl} Take 1 Un magdiel -acetaminop 7-15 tablet by ity of hen 10-325 15:47: mouth [place] mg tablet 36 (two) Medical times Branch daily. HYDROcodone Yes 1{tbl} Take 1 Un magdiel -acetaminop 7-15 tablet by ity of hen 10-325 15:47: mouth [place] mg tablet 36 (two) Medical times Branch daily. HYDROcodone Yes 1{tbl} Take 1 Un magdiel -acetaminop 7-15 tablet by ity of hen 10-325 15:47: mouth [place] mg tablet 36 (two) Medical times Branch daily. HYDROcodone 2021-0 Yes 1{tbl} Take 1 Un magdiel -acetaminop 7-15 tablet by ity of hen 10-325 15:47: mouth [place] mg tablet 36 (two) Medical times Branch daily. HYDROcodone 0 Yes 1{tbl} Take 1 Un magdiel -acetaminop 7-15 tablet by ity of hen 10-325 15:47: mouth [place] mg tablet 36 (two) Medical times Branch daily. HYDROcodone 0 Yes 1{tbl} Take 1 Un magdiel -acetaminop 7-15 tablet by ity of hen 10-325 15:47: mouth 2 [place] mg tablet 36 (two) Medical times Branch daily. HYDROcodone 0 Yes 1{tbl} Take 1 Un magdiel -acetaminop 7-15 tablet by ity of hen 10-325 15:47: mouth 2 [place] mg tablet 36 (two) Medical times Branch daily. HYDROcodone Yes 1{tbl} Take 1 Un magdiel -acetaminop 7-15 tablet by ity of hen 10-325 15:47: mouth 2 [place] mg tablet 36 (two) Medical times Branch daily. HYDROcodone Yes 1{tbl} Take 1 Un magdiel -acetaminop 7-15 tablet by ity of hen 10-325 15:47: mouth 2 [place] mg tablet 36 (two) Medical times Branch daily. HYDROcodone 0 Yes 1{tbl} Take 1 Un magdiel -acetaminop 7-15 tablet by ity of hen 10-325 15:47: mouth 2 [place] mg tablet 36 (two) Medical times Branch daily. HYDROcodone 0 Yes 1{tbl} Take 1 Un magdiel -acetaminop 7-15 tablet by ity of hen 10-325 15:47: mouth 2 [place] mg tablet 36 (two) Medical times Branch daily. HYDROcodone 2020-0 Yes 1{tbl} Take 1 Un magdiel -acetaminop 7-15 tablet by ity of hen 10-325 15:47: mouth [place] mg tablet 36 (two) Medical times Branch daily. HYDROcodone 2020-0 Yes 1{tbl} Take 1 Un magdiel -acetaminop 7-15 tablet by ity of hen 10-325 15:47: mouth [place] mg tablet 36 (two) Medical times Branch daily. dicyclomine 2021- No [id number] 10mg Take 1 [facility] (BENTYL) 10 14 16 capsule by i ty of mg capsule 00:00: 00:00 mouth 4 [place] 00 :00 (four) Medical times Branch daily as needed for Abdominal pain. Lancets 2017- Yes [id number] Check Univ ers Misc 2-30 sugars 1 ity of 00:00: times a [place] 00 day. Dx Medical Code Branch 1E11.9. Brand per insurance. Lancets 2017- Yes [id number] Check Univ ers Misc 2-30 sugars 1 ity of 00:00: times a [place] 00 day. Dx Medical Code Branch 1E11.9. Brand per insurance. Lancets 2016-09 Yes [id number] Check Univ ers Misc 2-30 sugars 1 ity of 00:00: times a [place] 00 day. Dx Medical Code Branch 1E11.9. Brand per insurance. Lancets 2017- Yes [id number] Check Univ ers Misc 2-30 sugars 1 ity of 00:00: times a [place] 00 day. Dx Medical Code Branch 1E11.9. Brand per insurance. Lancets 2017 Yes [id number] Check Univ ers Misc 2-30 sugars 1 ity of 00:00: times a [place] 00 day. Dx Medical Code Branch 1E11.9. Brand per insurance. Lancets 2017 Yes [id number] Check Univ ers Misc 2-30 sugars 1 ity of 00:00: times a [place] 00 day. Dx Medical Code Branch 1E11.9. Brand per insurance. Lancets 2017- Yes [id number] Check Univ ers Misc 2-30 sugars 1 ity of 00:00: times a [place] 00 day. Dx Medical Code Branch 1E11.9. Brand per insurance. Lancets 2016- Yes [id number] Check Univ ers Misc 2-30 sugars 1 ity of 00:00: times a [place] 00 day. Dx Medical Code Branch 1E11.9. Brand per insurance. Lancets 2016-09 Yes [id number] Check Univ ers Misc 2-30 sugars 1 ity of 00:00: times a [place] 00 day. Dx Medical Code Branch 1E11.9. Brand per insurance. Lancets 2017- Yes [id number] Check Univ ers Misc 2-30 sugars 1 ity of 00:00: times a [place] 00 day. Dx Medical Code Branch 1E11.9. Brand per insurance. Lancets 2017- Yes [id number] Check Univ ers Misc 2-30 sugars 1 ity of 00:00: times a [place] 00 day. Dx Medical Code Branch 1E11.9. Brand per insurance. Lancets 2017- Yes [id number] Check Univ ers Misc 2-30 sugars 1 ity of 00:00: times a [place] 00 day. Dx Medical Code Branch 1E11.9. Brand per insurance. Lancets 2017- Yes [id number] Check Univ ers Misc 2-30 sugars 1 ity of 00:00: times a [place] 00 day. Dx Medical Code Branch 1E11.9. Brand per insurance. Lancets 2016-09 Yes [id number] Check Univ ers Misc 2-30 sugars 1 ity of 00:00: times a [place] 00 day. Dx Medical Code Branch 1E11.9. Brand per insurance. Lancets 2017 Yes [id number] Check Univ ers Misc 2-30 sugars 1 ity of 00:00: times a [place] 00 day. Dx Medical Code Branch 1E11.9. Brand per insurance. Lancets 2017- Yes [id number] Check Univ ers Misc 2-30 sugars 1 ity of 00:00: times a [place] 00 day. Dx Medical Code Branch 1E11.9. Brand per insurance. Lancets 2017 Yes [id number] Check Univ ers Misc 2-30 sugars 1 ity of 00:00: times a [place] 00 day. Dx Medical Code Branch 1E11.9. Brand per insurance. Lancets 2017- Yes [id number] Check Univ ers Misc 2-30 sugars 1 ity of 00:00: times a [place] 00 day. Dx Medical Code Branch 1E11.9. Brand per insurance. Lancets 2017- Yes [id number] Check Univ ers Misc 2-30 sugars 1 ity of 00:00: times a [place] 00 day. Dx Medical Code Branch 1E11.9. Brand per insurance. Lancets 2017- Yes [id number] Check Univ ers Misc 2-30 sugars 1 ity of 00:00: times a [place] 00 day. Dx Medical Code Branch 1E11.9. Brand per insurance. Lancets 2017- Yes [id number] Check Univ ers Misc 2-30 sugars 1 ity of 00:00: times a [place] 00 day. Dx Medical Code Branch 1E11.9. Brand per insurance. Lancets 2017- Yes [id number] Check Univ ers Misc 2-30 sugars 1 ity of 00:00: times a [place] 00 day. Dx Medical Code Branch 1E11.9. Brand per insurance. Lancets 2017- Yes [id number] Check Univ ers Misc 2-30 sugars 1 ity of 00:00: times a [place] 00 day. Dx Medical Code Branch 1E11.9. Brand per insurance. Lancets 2017 Yes [id number] Check Univ ers Misc 2-30 sugars 1 ity of 00:00: times a [place] 00 day. Dx Medical Code Branch 1E11.9. Brand per insurance. Lancets 2017 Yes [id number] Check Univ ers Misc 2-30 sugars 1 ity of 00:00: times a [place] 00 day. Dx Medical Code Branch 1E11.9. Brand per insurance. Lancets 2017 Yes [id number] Check Univ ers Misc 2-30 sugars 1 ity of 00:00: times a [place] 00 day. Dx Medical Code Branch 1E11.9. Brand per insurance. Lancets 2017- Yes [id number] Check Univ ers Misc 2-30 sugars 1 ity of 00:00: times a [place] 00 day. Dx Medical Code Branch 1E11.9. Brand per insurance. Lancets 2017 Yes [id number] Check Univ ers Misc 2-30 sugars 1 ity of 00:00: times a [place] 00 day. Dx Medical Code Branch 1E11.9. Brand per insurance. Lancets 2017- Yes [id number] Check Univ ers Misc 2-30 sugars 1 ity of 00:00: times a [place] 00 day. Dx Medical Code Branch 1E11.9. Brand per insurance. Lancets 2017- Yes [id number] Check Univ ers Misc 2-30 sugars 1 ity of 00:00: times a [place] 00 day. Dx Medical Code Branch 1E11.9. Brand per insurance. Lancets 2017- Yes [id number] Check Univ ers Misc 2-30 sugars 1 ity of 00:00: times a [place] 00 day. Dx Medical Code Branch 1E11.9. Brand per insurance. Lancets 2017- Yes [id number] Check Univ ers Misc 2-30 sugars 1 ity of 00:00: times a [place] 00 day. Dx Medical Code Branch 1E11.9. Brand per insurance. Lancets 2017- Yes [id number] Check Univ ers Misc 2-30 sugars 1 ity of 00:00: times a [place] 00 day. Dx Medical Code Branch 1E11.9. Brand per insurance. Lancets 2017- Yes [id number] Check Univ ers Misc 2-30 sugars 1 ity of 00:00: times a [place] 00 day. Dx Medical Code Branch 1E11.9. Brand per insurance. Lancets 2017- Yes [id number] Check Univ ers Misc 2-30 sugars 1 ity of 00:00: times a [place] 00 day. Dx Medical Code Branch 1E11.9. Brand per insurance. Lancets 2017 Yes [id number] Check Univ ers Misc 2-30 sugars 1 ity of 00:00: times a [place] 00 day. Dx Medical Code Branch 1E11.9. Brand per insurance. Lancets 2017 Yes [id number] Check Univ ers Misc 2-30 sugars 1 ity of 00:00: times a [place] 00 day. Dx Medical Code Branch 1E11.9. Brand per insurance. Lancets 2017- Yes [id number] Check Univ ers Misc 2-30 sugars 1 ity of 00:00: times a [place] 00 day. Dx Medical Code Branch 1E11.9. Brand per insurance. Lancets 2017- Yes [id number] Check Univ ers Misc 2-30 sugars 1 ity of 00:00: times a [place] 00 day. Dx Medical Code Branch 1E11.9. Brand per insurance. Lancets 2017 Yes [id number] Check Univ ers Misc 2-30 sugars 1 ity of 00:00: times a [place] 00 day. Dx Medical Code Branch 1E11.9. Brand per insurance. Lancets 2017- Yes [id number] Check Univ ers Misc 2-30 sugars 1 ity of 00:00: times a [place] 00 day. Dx Medical Code Branch 1E11.9. Brand per insurance. Lancets 2017- Yes [id number] Check Univ ers Misc 2-30 sugars 1 ity of 00:00: times a [place] 00 day. Dx Medical Code Branch 1E11.9. Brand per insurance. Lancets 2017- Yes [id number] Check Univ ers Misc 2-30 sugars 1 ity of 00:00: times a [place] 00 day. Dx Medical Code Branch 1E11.9. Brand per insurance. Lancets 2017- Yes [id number] Check Univ ers Misc 2-30 sugars 1 ity of 00:00: times a [place] 00 day. Dx Medical Code Branch 1E11.9. Brand per insurance. Lancets 2017- Yes [id number] Check Univ ers Misc 2-30 sugars 1 ity of 00:00: times a [place] 00 day. Dx Medical Code Branch 1E11.9. Brand per insurance. Lancets 2017- Yes [id number] Check Univ ers Misc 2-30 sugars 1 ity of 00:00: times a [place] 00 day. Dx Medical Code Branch 1E11.9. Brand per insurance. Lancets 2017- Yes [id number] Check Univ ers Misc 2-30 sugars 1 ity of 00:00: times a [place] 00 day. Dx Medical Code Branch 1E11.9. Brand per insurance. Lancets 2017 Yes [id number] Check Univ ers Misc 2-30 sugars 1 ity of 00:00: times a [place] 00 day. Dx Medical Code Branch 1E11.9. Brand per insurance. Lancets 2017- Yes [id number] Check Univ ers Misc 2-30 sugars 1 ity of 00:00: times a [place] 00 day. Dx Medical Code Branch 1E11.9. Brand per insurance. Lancets 2017- Yes [id number] Check Univ ers Misc 2-30 sugars 1 ity of 00:00: times a [place] 00 day. Dx Medical Code Branch 1E11.9. Brand per insurance. Lancets 2017- Yes [id number] Check Univ ers Misc 2-30 sugars 1 ity of 00:00: times a [place] 00 day. Dx Medical Code Branch 1E11.9. Brand per insurance. Lancets 2017- Yes [id number] Check Univ ers Misc 2-30 sugars 1 ity of 00:00: times a [place] 00 day. Dx Medical Code Branch 1E11.9. Brand per insurance. Lancets 2017- Yes [id number] Check Univ ers Misc 2-30 sugars 1 ity of 00:00: times a [place] 00 day. Dx Medical Code Branch 1E11.9. Brand per insurance. Lancets 2016-09 Yes [id number] Check Univ ers Misc 2-30 sugars 1 ity of 00:00: times a [place] 00 day. Dx Medical Code Branch 1E11.9. Brand per insurance. Lancets 2016-09 Yes [id number] Check Univ ers Misc 2-30 sugars 1 ity of 00:00: times a [place] 00 day. Dx Medical Code Branch 1E11.9. Brand per insurance. Lancets 2016-09 Yes [id number] Check Univ ers Misc 2-30 sugars 1 ity of 00:00: times a [place] 00 day. Dx Medical Code Branch 1E11.9. Brand per insurance. Lancets 2016-09 Yes [id number] Check Univ ers Misc 2-30 sugars 1 ity of 00:00: times a [place] 00 day. Dx Medical Code Branch 1E11.9. Brand per insurance. Lancets 2016-09 Yes [id number] Check Univ ers Misc 2-30 sugars 1 ity of 00:00: times a [place] 00 day. Dx Medical Code Branch 1E11.9. Brand per insurance. lancets [id number] Yes Use as Univers (FREESTYLE 9-13 directed ity o f LANCETS) 28 00:00: [place] gauge Misc Medical Branch lancets 2017-0 Yes Use as [facility] (FREESTYLE 9-13 directed ity o f LANCETS) 28 00:00: [place] gauge Misc Medical Branch lancets 2017-0 Yes Use as [facility] (FREESTYLE 9-13 directed ity o f LANCETS) 28 00:00: [place] gauge Misc Medical Branch lancets 2017-0 Yes Use as [facility] (FREESTYLE 9-13 directed ity o f LANCETS) 28 00:00: [place] gauge Misc Medical Branch lancets 2017-0 Yes Use as [facility] (FREESTYLE 9-13 directed ity o f LANCETS) 28 00:00: [place] gauge Misc Medical Branch lancets 2017-0 Yes Use as [facility] (FREESTYLE 9-13 directed ity o f LANCETS) 28 00:00: [place] gauge Misc Medical Branch lancets 2017-0 Yes Use as [facility] (FREESTYLE 9-13 directed ity o f LANCETS) 28 00:00: [place] gauge Misc 00 Medical Branch lancets 2017-0 Yes Use as [facility] (FREESTYLE 9-13 directed ity o f LANCETS) 28 00:00: [place] gauge Misc 00 Medical Branch lancets 2017-0 Yes Use as [facility] (FREESTYLE 9-13 directed ity o f LANCETS) 28 00:00: [place] gauge Misc 00 Medical Branch lancets 2017-0 Yes Use as [facility] (FREESTYLE 9-13 directed ity o f LANCETS) 28 00:00: [place] gauge Misc 00 Medical Branch lancets 2017-0 Yes Use as [facility] (FREESTYLE 9-13 directed ity o f LANCETS) 28 00:00: [place] gauge Misc 00 Medical Branch lancets 2017-0 Yes Use as [facility] (FREESTYLE 9-13 directed ity o f LANCETS) 28 00:00: [place] gauge Misc Medical Branch lancets 2017-0 Yes Use as [facility] (FREESTYLE 9-13 directed ity o f LANCETS) 28 00:00: [place] gauge Misc 00 Medical Branch lancets 2017-0 Yes Use as [facility] (FREESTYLE 9-13 directed ity o f LANCETS) 28 00:00: [place] gauge Misc 00 Medical Branch lancets 2017-0 Yes Use as [facility] (FREESTYLE 9-13 directed ity o f LANCETS) 28 00:00: [place] gauge Misc 00 Medical Branch lancets 2017-0 Yes Use as [facility] (FREESTYLE 9-13 directed ity o f LANCETS) 28 00:00: [place] gauge Misc 00 Medical Branch lancets 2017-0 Yes Use as [facility] (FREESTYLE 9-13 directed ity o f LANCETS) 28 00:00: [place] gauge Misc 00 Medical Branch lancets 2017-0 Yes Use as [facility] (FREESTYLE 9-13 directed ity o f LANCETS) 28 00:00: [place] gauge Misc 00 Medical Branch lancets 2017-0 Yes Use as [facility] (FREESTYLE 9-13 directed ity o f LANCETS) 28 00:00: [place] gauge Misc 00 Medical Branch lancets 2017-0 Yes Use as [facility] (FREESTYLE 9-13 directed ity o f LANCETS) 28 00:00: [place] gauge Misc 00 Medical Branch lancets 2017-0 Yes Use as [facility] (FREESTYLE 9-13 directed ity o f LANCETS) 28 00:00: [place] gauge Misc 00 Medical Branch lancets 2017-0 Yes Use as [facility] (FREESTYLE 9-13 directed ity o f LANCETS) 28 00:00: [place] gauge Misc 00 Medical Branch lancets 2017-0 Yes Use as [facility] (FREESTYLE 9-13 directed ity o f LANCETS) 28 00:00: [place] gauge Misc 00 Medical Branch lancets 2017-0 Yes Use as [facility] (FREESTYLE 9-13 directed ity o f LANCETS) 28 00:00: [place] gauge Misc 00 Medical Branch lancets 2017-0 Yes Use as [facility] (FREESTYLE 9-13 directed ity o f LANCETS) 28 00:00: [place] gauge Misc 00 Medical Branch lancets 2017-0 Yes Use as [facility] (FREESTYLE 9-13 directed ity o f LANCETS) 28 00:00: [place] gauge Misc Medical Branch lancets 2017-0 Yes Use as [facility] (FREESTYLE 9-13 directed ity o f LANCETS) 28 00:00: [place] gauge Misc 00 Medical Branch lancets 2017-0 Yes Use as [facility] (FREESTYLE 9-13 directed ity o f LANCETS) 28 00:00: [place] gauge Misc 00 Medical Branch lancets 2017-0 Yes Use as [facility] (FREESTYLE 9-13 directed ity o f LANCETS) 28 00:00: [place] gauge Misc 00 Medical Branch lancets 2017-0 Yes Use as [facility] (FREESTYLE 9-13 directed ity o f LANCETS) 28 00:00: [place] gauge Misc 00 Medical Branch lancets 2017-0 Yes Use as [facility] (FREESTYLE 9-13 directed ity o f LANCETS) 28 00:00: [place] gauge Misc 00 Medical Branch lancets 2017-0 Yes Use as [facility] (FREESTYLE 9-13 directed ity o f LANCETS) 28 00:00: [place] gauge Misc 00 Medical Branch lancets 2017-0 Yes Use as [facility] (FREESTYLE 9-13 directed ity o f LANCETS) 28 00:00: [place] gauge Misc 00 Medical Branch lancets 2017-0 Yes Use as [facility] (FREESTYLE 9-13 directed ity o f LANCETS) 28 00:00: [place] gauge Misc 00 Medical Branch lancets 2017-0 Yes Use as [facility] (FREESTYLE 9-13 directed ity o f LANCETS) 28 00:00: [place] gauge Misc 00 [facility] lancets 2017-0 Yes Use [facility] (FREESTYLE 9-13 directed ity o f LANCETS) 28 00:00: [place] gauge Misc 00 [facility] lancets 2017-0 Yes Use as [facility] (FREESTYLE 9-13 directed ity o f LANCETS) 28 00:00: [place] gauge Misc [facility] lancets 2017-0 Yes Use as [facility] (FREESTYLE 9-13 directed ity o f LANCETS) 28 00:00: [place] gauge Misc [facility] lancets 2017-0 Yes Use as [facility] (FREESTYLE 9-13 directed ity o f LANCETS) 28 00:00: [place] gauge Misc [facility] lancets 2017-0 Yes Use as [facility] (FREESTYLE 9-13 directed ity o f LANCETS) 28 00:00: [place] gauge Misc [facility] lancets 2017-0 Yes Use as [facility] (FREESTYLE 9-13 directed ity o f LANCETS) 28 00:00: [place] gauge Misc [facility] lancets 2017-0 Yes Use as [facility] (FREESTYLE 9-13 directed ity o f LANCETS) 28 00:00: [place] gauge Misc [facility] lancets 2017-0 Yes Use as [facility] (FREESTYLE 9-13 directed ity o f LANCETS) 28 00:00: [place] gauge Misc [facility] lancets 2017-0 Yes Use as [facility] (FREESTYLE 9-13 directed ity o f LANCETS) 28 00:00: [place] gauge Misc [facility] lancets 2017-0 Yes Use as [facility] (FREESTYLE 9-13 directed ity o f LANCETS) 28 00:00: [place] gauge Misc [facility] lancets 2017-0 Yes Use as [facility] (FREESTYLE 9-13 directed ity o f LANCETS) 28 00:00: [place] gauge Misc 00 [facility] lancets 2017-0 Yes Use as [facility] (FREESTYLE 9-13 directed ity o f LANCETS) 28 00:00: [place] gauge Misc [facility] lancets 2017-0 Yes Use as [facility] (FREESTYLE 9-13 directed ity o f LANCETS) 28 00:00: [place] gauge Misc 00 [facility] lancets 2017-0 Yes Use as [facility] (FREESTYLE 9-13 directed ity o f LANCETS) 28 00:00: [place] gauge Misc 00 [facility] lancets 2017-0 Yes Use as [facility] (FREESTYLE 9-13 directed ity o f LANCETS) 28 00:00: [place] gauge Misc 00 [facility] lancets 2017-0 Yes Use as [facility] (FREESTYLE 9-13 directed ity o f LANCETS) 28 00:00: [place] gauge Misc [facility] lancets 2017-0 Yes Use as [facility] (FREESTYLE 9-13 directed ity o f LANCETS) 28 00:00: [place] gauge Misc [facility] lancets 2017-0 Yes Use as [facility] (FREESTYLE 9-13 directed ity o f LANCETS) 28 00:00: [place] gauge Misc 00 [facility] lancets 2017-0 Yes Use as [facility] (FREESTYLE 9-13 directed ity o f LANCETS) 28 00:00: [place] gauge Misc [facility] lancets 2017-0 Yes Use as [facility] (FREESTYLE 9-13 directed ity o f LANCETS) 28 00:00: [place] gauge Misc [facility] lancets 2017-0 Yes Use as [facility] (FREESTYLE 9-13 directed ity o f LANCETS) 28 00:00: [place] gauge Misc 00 [facility] lancets 2017-0 Yes Use as [facility] (FREESTYLE 9-13 directed ity o f LANCETS) 28 00:00: [place] gauge Misc 00 [facility] lancets 2017-0 Yes Use as [facility] (FREESTYLE 9-13 directed ity o f LANCETS) 28 00:00: [place] gauge Misc 00 [facility] lancets 28 2016-0 Yes Use as [facility] gauge misc 9-13 directed ity o f 00:00: [place] 00 MD [facility] Blood-Gluco Yes [id number] Check [facility] se Meter 9-11 sugars ity of Kit 00:00: times a day. Dx [facility] Code [facility] E11.9. Brand per insurance. blood sugar Yes [id number] Check [facility] diagnostic 9-11 sugars 1 ity o f strip 00:00: times a day. Dx [facility] Code [facility] E11.9. Brand per insurance. Blood-Gluco Yes [id number] Check [facility] se Meter 9-11 sugars ity of Kit 00:00: times a [place] 00 day. Dx [facility] Code [facility] E11.9. Brand per insurance. blood sugar 2017- Yes [id number] Check [facility] diagnostic 9-11 sugars 1 ity o f strip 00:00: times a [place] 00 day. Dx [facility] Code [facility] E11.9. Brand per insurance. Blood-Gluco 2016- Yes [id number] Check [facility] se Meter 9-11 sugars ity of Kit 00:00: times a day. [facility]x [facility] E11.9. Brand per insurance. blood sugar 2016- Yes [id number] Check [facility] diagnostic 9-11 sugars 1 ity o f strip 00:00: times a [place] 00 day. Dx [facility] Code [facility] E11.9. Brand per insurance. Blood-Gluco 2016- Yes [id number] Check [facility] se Meter 9-11 sugars ity of Kit 00:00: times a day. Dx [facility] E11.9. Brand per insurance. blood sugar Yes [id number] Check [facility] diagnostic 9-11 sugars 1 ity o f strip 00:00: times a day. Dx [facility] E11.9. Brand per insurance. Blood-Gluco 2016- Yes [id number] Check [facility] se Meter 9-11 sugars ity of Kit 00:00: times a day. Dx [facility] E11.9. Brand per insurance. blood sugar Yes [id number] Check [facility] diagnostic 9-11 sugars 1 ity o f strip 00:00: times a day. Dx [facility] Code [facility] E11.9. Brand per insurance. Blood-Gluco 2016- Yes [id number] Check [facility] se Meter 9-11 sugars ity of Kit 00:00: times a [place] day. Dx [facility] Code [facility] E11.9. Brand per insurance. blood sugar Yes [id number] Check [facility] diagnostic 9-11 sugars 1 ity o f strip 00:00: times a [place] day. Dx [facility] Code [facility] E11.9. Brand per insurance. Blood-Gluco 2017- Yes [id number] Check [facility] se Meter 9-11 sugars ity of Kit 00:00: times a 00 day. Dx [facility] Code [facility] E11.9. Brand per insurance. blood sugar 2016- Yes [id number] Check [facility] diagnostic 9-11 sugars 1 ity o f strip 00:00: times a [place] 00 day. Dx [facility] Code [facility] E11.9. Brand per insurance. Blood-Gluco 2017- Yes [id number] Check [facility] se Meter 9-11 sugars ity of Kit 00:00: times a day. Dx [facility] E11.9. Brand per insurance. blood sugar 2017-0 Yes [id number] Check [facility] diagnostic 9-11 sugars 1 ity o f strip 00:00: times a day. Dx [facility] Code [facility] E11.9. Brand per insurance. Blood-Gluco 2017- Yes [id number] Check [facility] se Meter 9-11 sugars ity of Kit 00:00: times a day. Dx [facility] Code [facility] E11.9. Brand per insurance. blood sugar 2017- Yes [id number] Check [facility] diagnostic 9-11 sugars 1 ity o f strip 00:00: times a day. Dx [facility] Code [facility] E11.9. Brand per insurance. Blood-Gluco 2016- Yes [id number] Check [facility] se Meter 9-11 sugars ity of Kit 00:00: times a day. Dx [facility] E11.9. Brand per insurance. blood sugar 2016- Yes [id number] Check [facility] diagnostic 9-11 sugars 1 ity o f strip 00:00: times a day. Dx [facility] E11.9. Brand per insurance. Blood-Gluco 2016- Yes [id number] Check [facility] se Meter 9-11 sugars ity of Kit 00:00: times a day. Dx [facility] Code [facility] E11.9. Brand per insurance. blood sugar 2016- Yes [id number] Check [facility] diagnostic 9-11 sugars 1 ity o f strip 00:00: times a [place] day. Dx [facility] Code [facility] E11.9. Brand per insurance. Blood-Gluco 2017- Yes [id number] Check [facility] se Meter 9-11 sugars ity of Kit 00:00: times a day. Dx [facility] E11.9. Brand per insurance. blood sugar 2017-0 Yes [id number] Check [facility] diagnostic 9-11 sugars 1 ity o f strip 00:00: times a 00 day. Dx [facility] Code [facility] E11.9. Brand per insurance. Blood-Gluco 2017- Yes [id number] Check [facility] se Meter 9-11 sugars ity of Kit 00:00: times a [place] 00 day. Dx [facility] Code [facility] E11.9. Brand per insurance. blood sugar 2017- Yes [id number] Check [facility] diagnostic 9-11 sugars 1 ity o f strip 00:00: times a [place] day. Dx [facility] E11.9. Brand per insurance. Blood-Gluco 2016- Yes [id number] Check [facility] se Meter 9-11 sugars ity of Kit 00:00: times a day. Dx [facility] E11.9. Brand per insurance. blood sugar 2017- Yes [id number] Check [facility] diagnostic 9-11 sugars 1 ity o f strip 00:00: times a 00 day. Dx [facility] E11.9. Brand per insurance. Blood-Gluco 2016- Yes [id number] Check [facility] se Meter 9-11 sugars ity of Kit 00:00: times a day. Dx [facility] E11.9. Brand per insurance. blood sugar Yes [id number] Check [facility] diagnostic 9-11 sugars 1 ity o f strip 00:00: times a day. Dx [facility] E11.9. Brand per insurance. Blood-Gluco 2016- Yes [id number] Check [facility] se Meter 9-11 sugars ity of Kit 00:00: times a day. Dx [facility] E11.9. Brand per insurance. blood sugar Yes [id number] Check [facility] diagnostic 9-11 sugars 1 ity o f strip 00:00: times a day. Dx [facility] E11.9. Brand per insurance. Blood-Gluco 2016- Yes [id number] Check [facility] se Meter 9-11 sugars ity of Kit 00:00: times a day. Dx [facility] E11.9. Brand per insurance. blood sugar Yes [id number] Check [facility] diagnostic 9-11 sugars 1 ity o f strip 00:00: times a day. Dx [facility] E11.9. Brand per insurance. Blood-Gluco 2016- Yes [id number] Check [facility] se Meter 9-11 sugars ity of Kit 00:00: times a day. Dx [facility] E11.9. Brand per insurance. blood sugar 2016- Yes [id number] Check [facility] diagnostic 9-11 sugars 1 ity o f strip 00:00: times a [place] 00 day. Dx [facility] Code [facility] E11.9. Brand per insurance. Blood-Gluco 2017- Yes [id number] Check [facility] se Meter 9-11 sugars ity of Kit 00:00: times a day. Dx [facility] E11.9. Brand per insurance. blood sugar 2017-0 Yes [id number] Check [facility] diagnostic 9-11 sugars 1 ity o f strip 00:00: times a day. Dx [facility] E11.9. Brand per insurance. Blood-Gluco 2017- Yes [id number] Check [facility] se Meter 9-11 sugars ity of Kit 00:00: times a day. Dx [facility] E11.9. Brand per insurance. blood sugar 2017- Yes [id number] Check [facility] diagnostic 9-11 sugars 1 ity o f strip 00:00: times a day. Dx [facility] Code [facility] E11.9. Brand per insurance. Blood-Gluco 2016- Yes [id number] Check [facility] se Meter 9-11 sugars ity of Kit 00:00: times a day. Dx [facility] E11.9. Brand per insurance. blood sugar Yes [id number] Check [facility] diagnostic 9-11 sugars 1 ity o f strip 00:00: times a day. Dx [facility] Code [facility] E11.9. Brand per insurance. Blood-Gluco 2016- Yes [id number] Check [facility] se Meter 9-11 sugars ity of Kit 00:00: times a day. Dx [facility] E11.9. Brand per insurance. blood sugar 2016- Yes [id number] Check [facility] diagnostic 9-11 sugars 1 ity o f strip 00:00: times a [place] day. Dx [facility] Code [facility] E11.9. Brand per insurance. Blood-Gluco 2016- Yes [id number] Check [facility] se Meter 9-11 sugars ity of Kit 00:00: times a day. Dx [facility] Code [facility] E11.9. Brand per insurance. blood sugar 2016- Yes [id number] Check [facility] diagnostic 9-11 sugars 1 ity o f strip 00:00: times a 00 day. Dx [facility] Code [facility] E11.9. Brand per insurance. Blood-Gluco 2016- Yes [id number] Check [facility] se Meter 9-11 sugars ity of Kit 00:00: times a [place] 00 day. Dx [facility] Code [facility] E11.9. Brand per insurance. blood sugar 2017- Yes [id number] Check [facility] diagnostic 9-11 sugars 1 ity o f strip 00:00: times a day. Dx [facility] Code [facility] E11.9. Brand per insurance. Blood-Gluco 2016- Yes [id number] Check [facility] se Meter 9-11 sugars ity of Kit 00:00: times a day. Dx [facility] Code [facility] E11.9. Brand per insurance. blood sugar 2017- Yes [id number] Check [facility] diagnostic 9-11 sugars 1 ity o f strip 00:00: times a 00 day. Dx [facility] Code [facility] E11.9. Brand per insurance. Blood-Gluco 2016- Yes [id number] Check [facility] se Meter 9-11 sugars ity of Kit 00:00: times a day. Dx [facility] Code [facility] E11.9. Brand per insurance. blood sugar Yes [id number] Check [facility] diagnostic 9-11 sugars 1 ity o f strip 00:00: times a day. Dx [facility] Code [facility] E11.9. Brand per insurance. Blood-Gluco 2016- Yes [id number] Check [facility] se Meter 9-11 sugars ity of Kit 00:00: times a day. Dx [facility] Code [facility] E11.9. Brand per insurance. blood sugar Yes [id number] Check [facility] diagnostic 9-11 sugars 1 ity o f strip 00:00: times a day. Dx [facility] Code [facility] E11.9. Brand per insurance. Blood-Gluco 2016- Yes [id number] Check [facility] se Meter 9-11 sugars ity of Kit 00:00: times a day. Dx [facility] Code [facility] E11.9. Brand per insurance. blood sugar Yes [id number] Check [facility] diagnostic 9-11 sugars 1 ity o f strip 00:00: times a day. Dx [facility] E11.9. Brand per insurance. Blood-Gluco 2016- Yes [id number] Check [facility] se Meter 9-11 sugars ity of Kit 00:00: times a day. Dx [facility] E11.9. Brand per insurance. blood sugar 2016- Yes [id number] Check [facility] diagnostic 9-11 sugars 1 ity o f strip 00:00: times a [place] 00 day. Dx [facility] Code [facility] E11.9. Brand per insurance. Blood-Gluco 2017-0 Yes [id number] Check [facility] se Meter 9-11 sugars ity of Kit 00:00: times a day. Dx [facility] Code [facility] E11.9. Brand per insurance. blood sugar 2017-0 Yes [id number] Check [facility] diagnostic 9-11 sugars 1 ity o f strip 00:00: times a day. Dx [facility] Code [facility] E11.9. Brand per insurance. Blood-Gluco 2017- Yes [id number] Check [facility] se Meter 9-11 sugars ity of Kit 00:00: times a day. Dx [facility] Code [facility] E11.9. Brand per insurance. blood sugar 2017- Yes [id number] Check [facility] diagnostic 9-11 sugars 1 ity o f strip 00:00: times a day. Dx [facility] E11.9. Brand per insurance. Blood-Gluco 2016- Yes [id number] Check [facility] se Meter 9-11 sugars ity of Kit 00:00: times a day. Dx [facility] Code [facility] E11.9. Brand per insurance. blood sugar Yes [id number] Check [facility] diagnostic 9-11 sugars 1 ity o f strip 00:00: times a day. Dx [facility] Code [facility] E11.9. Brand per insurance. Blood-Gluco 2016- Yes [id number] Check [facility] se Meter 9-11 sugars ity of Kit 00:00: times a day. Dx [facility] Code [facility] E11.9. Brand per insurance. blood sugar 2016- Yes [id number] Check [facility] diagnostic 9-11 sugars 1 ity o f strip 00:00: times a day. Dx [facility] Code [facility] E11.9. Brand per insurance. Blood-Gluco 2016- Yes [id number] Check [facility] se Meter 9-11 sugars ity of Kit 00:00: times a day. Dx [facility] Code [facility] E11.9. Brand per insurance. blood sugar 2016- Yes [id number] Check [facility] diagnostic 9-11 sugars 1 ity o f strip 00:00: times a day. Dx [facility] Code [facility] E11.9. Brand per insurance. Blood-Gluco 2016- Yes [id number] Check [facility] se Meter 9-11 sugars ity of Kit 00:00: times a [place] 00 day. Dx [facility] Code [facility] E11.9. Brand per insurance. blood sugar 2017 Yes [id number] Check [facility] diagnostic 9-11 sugars 1 ity o f strip 00:00: times a day. Dx [facility] Code [facility] E11.9. Brand per insurance. Blood-Gluco 2016- Yes [id number] Check [facility] se Meter 9-11 sugars ity of Kit 00:00: times a day. Dx [facility] Code [facility] E11.9. Brand per insurance. blood sugar Yes [id number] Check [facility] diagnostic 9-11 sugars 1 ity o f strip 00:00: times a day. Dx [facility] Code [facility] E11.9. Brand per insurance. Blood-Gluco 2016- Yes [id number] Check [facility] se Meter 9-11 sugars ity of Kit 00:00: times a day. Dx [facility] Code [facility] E11.9. Brand per insurance. blood sugar Yes [id number] Check [facility] diagnostic 9-11 sugars 1 ity o f strip 00:00: times a day. Dx [facility] Code [facility] E11.9. Brand per insurance. Blood-Gluco 2016- Yes [id number] Check [facility] se Meter 9-11 sugars ity of Kit 00:00: times a day. Dx [facility] E11.9. Brand per insurance. blood sugar Yes [id number] Check [facility] diagnostic 9-11 sugars 1 ity o f strip 00:00: times a day. Dx [facility] Code [facility] E11.9. Brand per insurance. Blood-Gluco 2016- Yes [id number] Check [facility] se Meter 9-11 sugars ity of Kit 00:00: times a day. Dx [facility] Code [facility] E11.9. Brand per insurance. blood sugar Yes [id number] Check [facility] diagnostic 9-11 sugars 1 ity o f strip 00:00: times a day. Dx [facility] Code [facility] E11.9. Brand per insurance. Blood-Gluco 2016- Yes [id number] Check [facility] se Meter 9-11 sugars ity of Kit 00:00: times a day. Dx [facility] E11.9. Brand per insurance. blood sugar 2016- Yes [id number] Check [facility] diagnostic 9-11 sugars 1 ity o f strip 00:00: times a [place] 00 day. Dx [facility] Code [facility] E11.9. Brand per insurance. Blood-Gluco 2017- Yes [id number] Check [facility] se Meter 9-11 sugars ity of Kit 00:00: times a day. Dx [facility] E11.9. Brand per insurance. blood sugar 2017- Yes [id number] Check [facility] diagnostic 9-11 sugars 1 ity o f strip 00:00: times a day. Dx [facility] E11.9. Brand per insurance. Blood-Gluco 2017- Yes [id number] Check [facility] se Meter 9-11 sugars ity of Kit 00:00: times a day. Dx [facility] E11.9. Brand per insurance. blood sugar 2016- Yes [id number] Check [facility] diagnostic 9-11 sugars 1 ity o f strip 00:00: times a day. Dx [facility] E11.9. Brand per insurance. Blood-Gluco 2016- Yes [id number] Check [facility] se Meter 9-11 sugars ity of Kit 00:00: times a day. Dx [facility] E11.9. Brand per insurance. blood sugar Yes [id number] Check [facility] diagnostic 9-11 sugars 1 ity o f strip 00:00: times a day. Dx [facility] Code [facility] E11.9. Brand per insurance. Blood-Gluco 2016- Yes [id number] Check [facility] se Meter 9-11 sugars ity of Kit 00:00: times a day. Dx [facility] E11.9. Brand per insurance. blood sugar Yes [id number] Check [facility] diagnostic 9-11 sugars 1 ity o f strip 00:00: times a day. Dx [facility] Code [facility] E11.9. Brand per insurance. Blood-Gluco 2016- Yes [id number] Check [facility] se Meter 9-11 sugars ity of Kit 00:00: times a day. Dx [facility] Code [facility] E11.9. Brand per insurance. blood sugar 2016- Yes [id number] Check [facility] diagnostic 9-11 sugars 1 ity o f strip 00:00: times a day. Dx [facility] Code [facility] E11.9. Brand per insurance. Blood-Gluco 2016- Yes [id number] Check [facility] se Meter 9-11 sugars ity of Kit 00:00: times a day. Dx [facility] Code [facility] E11.9. Brand per insurance. blood sugar Yes [id number] Check [facility] diagnostic 9-11 sugars 1 ity o f strip 00:00: times a day. Dx [facility] Code [facility] E11.9. Brand per insurance. Blood-Gluco 2016- Yes [id number] Check [facility] se Meter 9-11 sugars ity of Kit 00:00: times a day. Dx [facility] Code [facility] E11.9. Brand per insurance. blood sugar Yes [id number] Check [facility] diagnostic 9-11 sugars 1 ity o f strip 00:00: times a day. Dx [facility] Code [facility] E11.9. Brand per insurance. Blood-Gluco 2016- Yes [id number] Check [facility] se Meter 9-11 sugars ity of Kit 00:00: times a day. Dx [facility] Code [facility] E11.9. Brand per insurance. blood sugar Yes [id number] Check [facility] diagnostic 9-11 sugars 1 ity o f strip 00:00: times a day. Dx [facility] Code [facility] E11.9. Brand per insurance. Blood-Gluco 2016- Yes [id number] Check [facility] se Meter 9-11 sugars ity of Kit 00:00: times a day. Dx [facility] Code [facility] E11.9. Brand per insurance. blood sugar Yes [id number] Check [facility] diagnostic 9-11 sugars 1 ity o f strip 00:00: times a day. Dx [facility] Code [facility] E11.9. Brand per insurance. Blood-Gluco 2016- Yes [id number] Check [facility] se Meter 9-11 sugars ity of Kit 00:00: times a day. Dx [facility] Code [facility] E11.9. Brand per insurance. blood sugar Yes [id number] Check [facility] diagnostic 9-11 sugars 1 ity o f strip 00:00: times a day. Dx [facility] Code [facility] E11.9. Brand per insurance. Blood-Gluco 2016- Yes [id number] Check [facility] se Meter 9-11 sugars ity of Kit 00:00: times a day. Dx [facility] Code [facility] E11.9. Brand per insurance. blood sugar 2016- Yes [id number] Check [facility] diagnostic 9-11 sugars 1 ity o f strip 00:00: times a [place] 00 day. Dx [facility] Code [facility] E11.9. Brand per insurance. Blood-Gluco 2017- Yes [id number] Check [facility] se Meter 9-11 sugars ity of Kit 00:00: times a day. Dx [facility] Code [facility] E11.9. Brand per insurance. blood sugar 2017- Yes [id number] Check [facility] diagnostic 9-11 sugars 1 ity o f strip 00:00: times a day. Dx [facility] E11.9. Brand per insurance. Blood-Gluco 2017- Yes [id number] Check [facility] se Meter 9-11 sugars ity of Kit 00:00: times a day. Dx [facility] E11.9. Brand per insurance. blood sugar 2016- Yes [id number] Check [facility] diagnostic 9-11 sugars 1 ity o f strip 00:00: times a day. Dx [facility] Code [facility] E11.9. Brand per insurance. Blood-Gluco 2016- Yes [id number] Check [facility] se Meter 9-11 sugars ity of Kit 00:00: times a day. Dx [facility] E11.9. Brand per insurance. blood sugar Yes [id number] Check [facility] diagnostic 9-11 sugars 1 ity o f strip 00:00: times a day. Dx [facility] E11.9. Brand per insurance. Blood-Gluco 2016- Yes [id number] Check [facility] se Meter 9-11 sugars ity of Kit 00:00: times a day. Dx [facility] E11.9. Brand per insurance. blood sugar Yes [id number] Check [facility] diagnostic 9-11 sugars 1 ity o f strip 00:00: times a day. Dx [facility] E11.9. Brand per insurance. Blood-Gluco 2016- Yes [id number] Check [facility] se Meter 9-11 sugars ity of Kit 00:00: times a day. Dx [facility] E11.9. Brand per insurance. blood sugar 2016- Yes [id number] Check [facility] diagnostic 9-11 sugars 1 ity o f strip 00:00: times a day. Dx [facility] E11.9. Brand per insurance. Blood-Gluco 2016- Yes [id number] Check [facility] se Meter 9-11 sugars ity of Kit 00:00: times a day. Dx [facility] E11.9. Brand per insurance. blood sugar Yes [id number] Check [facility] diagnostic 9-11 sugars 1 ity o f strip 00:00: times a day. Dx [facility] E11.9. Brand per insurance. Blood-Gluco 2016- Yes [id number] Check [facility] se Meter 9-11 sugars ity of Kit 00:00: times a day. Dx [facility] E11.9. Brand per insurance. blood sugar Yes [id number] Check [facility] diagnostic 9-11 sugars 1 ity o f strip 00:00: times a day. Dx [facility] E11.9. Brand per insurance. blood sugar Yes Check [facility] diagnostic 9-11 sugars 1 ity o f strp 00:00: times a day. Dx MD Shivam Wyman E11.9. n Brand per Cancer insurance. Center blood-gluco Yes Check [facility] se meter 9-11 sugars ity of kit 00:00: times a . Dx MD Code Zam[facility]am E11.9. n Brand per Cancer insurance. Center Immunizations Ordered Filled Date Status Comments Source Immunization Name Immunization Name TDAP 2019-10-15 Completed [facility] 00:[facility]00 [facility] TDAP 2019-10-15 Completed [facility] 00:[facility]:00 [facility] TDAP 2019-10-15 Completed [facility] 00:00:00 [facility] TDAP 2019-10-15 Completed [facility] 00:00:00 [facility] TDAP 2019-10-15 Completed [facility] 00[facility]00:00 [facility] TDAP 2019-10-15 Completed [facility] 00[facility]00:00 [facility] TDAP 2019-10-15 Completed [facility] 00[facility]00:00 [facility] TDAP 2019-10-15 Completed [facility] 00[facility]00:00 [facility] TDAP 2019-10-15 Completed [facility] 00[facility]00:00 [facility] TDAP 2019-10-15 Completed [facility] 00[facility]00:00 [facility] TDAP 2019-10-15 Completed [facility] 00:00:00 [facility] TDAP 2019-10-15 Completed [facility] 00[facility]00:00 [facility] TDAP 2019-10-15 Completed [facility] 00:00:00 [facility] TDAP 2019-10-15 Completed [facility] 00:00:00 [facility] TDAP 2019-10-15 Completed [facility] 00:00:00 [facility] TDAP 2019-10-15 Completed [facility] 00:00:00 [facility] TDAP 2019-10-15 Completed [facility] 00:00:00 [facility] TDAP 2019-10-15 Completed [facility] 00[facility]00:00 [facility] TDAP 2019-10-15 Completed [facility] 00:00:00 [facility] TDAP 2019-10-15 Completed [facility] 00:00:00 [facility] TDAP 2019-10-15 Completed [facility] 00:00:00 [facility] TDAP 2019-10-15 Completed [facility] 00:00:00 [facility] TDAP 2019-10-15 Completed [facility] 00:00:00 [facility] TDAP 2019-10-15 Completed [facility] 00[facility]00:00 [facility] TDAP 2019-10-15 Completed [facility] 00:00:00 [facility] TDAP 2019-10-15 Completed [facility] 00:00:00 [facility] TDAP 2019-10-15 Completed [facility] 00:00:00 [facility] TDAP 2019-10-15 Completed [facility] 00:00:00 [facility] TDAP 2019-10-15 Completed [facility] 00:00:00 [facility] TDAP 2019-10-15 Completed [facility] 00:00:00 [facility] TDAP 2019-10-15 Completed [facility] 00:00:00 [facility] TDAP 2019-10-15 Completed [facility] 00:00:00 [facility] TDAP 2019-10-15 Completed [facility] 00:00:00 [facility] TDAP 2019-10-15 Completed [facility] 00:00:00 [facility] TDAP 2019-10-15 Completed [facility] 00:00:00 [facility] TDAP 2019-10-15 Completed [facility] 00:00:00 [facility] TDAP 2019-10-15 Completed [facility] 00:00:00 [facility] TDAP 2019-10-15 Completed [facility] 00:00:00 [facility] TDAP 2019-10-15 Completed [facility] 00:00:00 [facility] TDAP 2019-10-15 Completed [facility] 00:00:00 [facility] TDAP 2019-10-15 Completed [facility] 00:00:00 [place] [facility] TDAP 2019-10-15 Completed [facility] 00:00:00 [facility] TDAP 2019-10-15 Completed [facility] 00:00:00 [facility] TDAP 2019-10-15 Completed University of 00:00:00 [facility] Td 2010 Completed University [facility] 00:00:00 [facility] Tetanus/Diptheria 2010 Completed Univers ity of 00:00:00 [facility] Td 2010 Completed University [facility] 00:00:00 [facility] Tetanus/Diptheria 2010 Completed Univers ity of 00:00:00 [facility] Td 2010 Completed University of 00:00:00 [facility] Tetanus/Diptheria 2010 Completed Univers ity of 00:00:00 [facility] Td 2010 Completed University of 00:00:00 [facility] Tetanus/Diptheria 2010 Completed Univers ity of 00:00:00 [facility] Td 2010 Completed University [facility] 00:00:00 [facility] Tetanus/Diptheria 2010 Completed Univers ity of 00:00:00 [facility] Td 2010 Completed University of 00:00:00 [facility] Tetanus/Diptheria 2010 Completed Univers ity of 00:00:00 [facility] Td 2010 Completed University of 00:00:00 [facility] Tetanus/Diptheria 2010 Completed Univers ity of 00:00:00 [facility] Td 2010 Completed University of 00:00:00 [facility] Tetanus/Diptheria 2010 Completed Univers ity of 00:00:00 [facility] Td 2010 Completed University of 00:00:00 [facility] Tetanus/Diptheria 2010 Completed Univers ity of 00:00:00 [facility] Td 2010 Completed University of 00:00:00 [facility] Tetanus/Diptheria 2010 Completed Univers ity of 00:00:00 [facility] Td 2010 Completed University of 00:00:00 [facility] Tetanus/Diptheria 2010 Completed Univers ity of 00:00:00 [facility] TD, NOS 2010 Completed University of 00:00:00 [facility] Tetanus/Diptheria 2010 Completed Univers ity of 00:00:00 [place] [facility] TD, NOS 2010 Completed University of 00:00:00 [facility] Tetanus/Diptheria 2010 Completed Univers ity of 00:00:00 [facility] TD, NOS 2010 Completed University of 00:00:00 [facility] Tetanus/Diptheria 2010 Completed Univers ity of 00:00:00 [facility] TD, NOS 2010 Completed University [facility] 00:00:00 [facility] Tetanus/Diptheria 2010 Completed Univers ity of 00:00:00 [facility] TD, NOS 2010 Completed University of 00:00:00 [facility] Tetanus/Diptheria 2010 Completed Univers ity of 00:00:00 [facility] TD, NOS 2010 Completed University of 00:00:00 [facility] Tetanus/Diptheria 2010 Completed Univers ity of 00:00:00 [facility] TD, NOS 2010 Completed University of 00:00:00 [facility] Tetanus/Diptheria 2010 Completed Univers ity of 00:00:00 [facility] TD, NOS 2010 Completed University of 00:00:00 [facility] Tetanus/Diptheria 2010 Completed Univers ity of 00:00:00 [facility] TD, NOS 2010 Completed University of 00:00:00 [facility] Tetanus/Diptheria 2010 Completed Univers ity of 00:00:00 [facility] TD, NOS 2010 Completed University [facility] 00:00:00 [facility] Tetanus/Diptheria 2010 Completed Univers ity of 00:00:00 [facility] TD, NOS 2010 Completed University [facility] 00:00:00 [facility] Tetanus/Diptheria 2010 Completed Univers ity of 00:00:00 [facility] TD, NOS 2010 Completed University [facility] 00:00:00 [facility] Tetanus/Diptheria 2010 Completed Univers ity of 00:00:00 [facility] TD, NOS 2010 Completed University [facility] 00:00:00 [facility] Tetanus/Diptheria 2010 Completed Univers ity [facility] 00:00:00 [place] [facility] TD, NOS 2010 Completed University [facility] 00:00:00 [facility] Tetanus/Diptheria 2010 Completed Univers ity of 00:00:00 [facility] TD, NOS 2010 Completed University of 00:00:00 [facility] Tetanus/Diptheria 2010 Completed Univers ity of 00:00:00 [facility] TD, NOS 2010 Completed University of 00:00:00 [facility] Tetanus/Diptheria 2010 Completed Univers ity of 00:00:00 [facility] TD, NOS 2010 Completed University [facility] 00:00:00 [facility] Tetanus/Diptheria 2010 Completed Univers ity of 00:00:00 [facility] TD, NOS 2010 Completed University of 00:00:00 [facility] Tetanus/Diptheria 2010 Completed Univers ity of 00:00:00 [facility] TD, NOS 2010 Completed University of 00:00:00 [facility] Tetanus/Diptheria 2010 Completed Univers ity of 00:00:00 [facility] TD, NOS 2010 Completed University [facility] 00:00:00 [facility] Tetanus/Diptheria 2010 Completed Univers ity of 00:00:00 [facility] TD, NOS 2010 Completed [facility] 00:00:00 [facility] Tetanus/Diptheria 2010 Completed Univers ity of 00:00:00 [facility] TD, NOS 2010 Completed University [facility] 00:00:00 [facility] Tetanus/Diptheria 2010 Completed Univers ity of 00:00:00 [facility] TD, NOS 2010 Completed [facility] 00:00:00 [facility] Tetanus/Diptheria 2010 Completed Univers ity of 00:00:00 [facility] TD, NOS 2010 Completed [facility] 00:00:00 [facility] Tetanus/Diptheria 2010 Completed Univers ity of 00:00:00 [facility] TD, NOS 2010 Completed [facility] 00:00:00 [facility] Tetanus/Diptheria 2010 Completed Univers ity of 00:00:00 [place] [facility] TD, NOS 2010 Completed [facility] 00:00:00 [facility] Tetanus/Diptheria 2010 Completed Univers ity [facility] 00:00:00 [place] [facility] TD, NOS 2010 Completed [facility] 00:00:00 [facility] Tetanus/Diptheria 2010 Completed Univers ity of 00:00:00 [facility] TD, NOS 2010 Completed [facility] 00:00:00 [facility] Tetanus/Diptheria 2010 Completed Univers ity of 00:00:00 [facility] TD, NOS 2010 Completed [facility] 00:00:00 [facility] Tetanus/Diptheria 2010 Completed Univers ity of 00:00:00 [facility] TD, NOS 2010 Completed [facility] 00:00:00 [facility] Tetanus/Diptheria 2010 Completed Univers ity of 00:00:00 [facility] TD, NOS 2010 Completed [facility] 00:00:00 [facility] Tetanus/Diptheria 2010 Completed Univers ity of 00:00:00 [facility] TD, NOS 2010 Completed University of 00:00:00 [facility] Tetanus/Diptheria 2010 Completed Univers ity of 00:00:00 [facility] TD, NOS 2010 Completed University of 00:00:00 [facility] Tetanus/Diptheria 2010 Completed Univers ity of 00:00:00 [facility] TD, NOS Unknown Completed [facility] TDAP Unknown Completed [facility] Tetanus/Diptheria Unknown Completed Univers ity of [facility] TD, NOS Unknown Completed [facility] TDAP Unknown Completed [facility] Tetanus/Diptheria Unknown Completed Univers ity of [facility] TD, NOS Unknown Completed [facility] TDAP Unknown Completed [facility] Tetanus/Diptheria Unknown Completed Univers ity of [facility] TD, NOS Unknown Completed [facility] TDAP Unknown Completed [facility] Tetanus/Diptheria Unknown Completed [facility] TD, NOS Unknown Completed [facility] TDAP Unknown Completed [facility] Tetanus/Diptheria Unknown Completed [facility] TD, NOS Unknown Completed [facility] TDAP Unknown Completed [facility] Tetanus/Diptheria Unknown Completed [facility] TD, NOS Unknown Completed [facility] TDAP Unknown Completed [facility] Tetanus/Diptheria Unknown Completed [facility] TD, NOS Unknown Completed [facility] TDAP Unknown Completed [facility] Tetanus/Diptheria Unknown Completed [facility] TD, NOS Unknown Completed [facility] TDAP Unknown Completed [facility] Tetanus/Diptheria Unknown Completed [facility] TD, NOS Unknown Completed [facility] TDAP Unknown Completed [facility] Tetanus/Diptheria Unknown Completed [facility] TD, NOS Unknown Completed [facility] TDAP Unknown Completed [facility] Tetanus/Diptheria Unknown Completed [facility] TD, NOS Unknown Completed [facility] TDAP Unknown Completed [facility] Tetanus/Diptheria Unknown Completed [facility] TD, NOS Unknown Completed [facility] TDAP Unknown Completed [facility] Tetanus/Diptheria Unknown Completed [facility] TD, NOS Unknown Completed [facility] TDAP Unknown Completed [facility] Tetanus/Diptheria Unknown Completed [facility] Vital Signs Vital Name Observation Time Observation Value Comments Source Systolic blood 2023-07-23 18:58:00 137 mm[Hg] Univer sity of pressure [facility] Diastolic blood 2023-07-23 18:58:00 79 mm[Hg] [facility] Heart rate 2023-07-23 18:58:00 78 /min [facility] Body temperature 2023-07-23 18:58:00 36.67 [place] [facility] Res[facility] rate 2023-07-23 18:58:00 16 /min [facility] Body height 2023-07-23 18:58:00 167.6 cm [facility] Body weight 2023-07-23 18:58:00 105.053 kg [facility] BMI 2023-07-23 18:58:00 37.38 kg/m2 [facility] Oxygen saturation in 2023-07-23 18:58:00 98 /min University of Arterial blood by [facility]xim[facility] Systolic blood 2023-02-28 18:00:00 138 mm[Hg] Univer sity of [facility] Diastolic blood 2023-02-28 18:00:00 84 mm[Hg] Unive rsity of [facility] Heart rate 2023-02-28 18:00:00 75 /min [facility] Body temperature 2023-02-28 18:00:00 36.5 [place] [facility] Respiratory rate 2023-02-28 18:00:00 18 /min Univ [facility] Body height 2023-02-28 18:00:00 167.6 cm [facility] Body weight 2023-02-28 18:00:00 116.121 kg [facility] BMI 2023-02-28 18:00:00 41.32 kg/m2 [facility] Oxygen saturation in 2023-02-28 18:00:00 99 /min University of Arterial blood by [facility] Systolic blood 2022-11-28 20:43:00 132 mm[Hg] Univer sity of [facility] Diastolic blood 2022-11-28 20:43:00 80 mm[Hg] Unive rsity of [facility] Heart rate 2022-11-28 20:39:00 61 /min [facility] Body temperature 2022-11-28 20:39:00 37.17 [place] [facility] Respiratory rate 2022-11-28 20:39:00 18 /min Univ [facility] Body height 2022-11-28 20:39:00 167.6 cm [facility] Body weight 2022-11-28 20:39:00 122.108 kg [facility] BMI 2022-11-28 20:39:00 43.45 kg/m2 [facility] Oxygen saturation in 2022-11-28 20:39:00 99 /min [facility] by [place] [facility] Systolic blood 2022-11-28 20:42:00 132 mm[Hg] Univer sity of [facility] Diastolic blood 2022-11-28 20:42:00 80 mm[Hg] Unive rsity of [facility] Heart rate 2022-11-28 20:40:00 61 /min [facility] Body temperature 2022-11-28 20:40:00 37.17 [place] [facility] Respiratory rate 2022-11-28 20:40:00 18 /min Univ [facility] Body height 2022-11-28 20:40:00 167.6 cm [facility] Body weight 2022-11-28 20:40:00 122.108 kg [facility] BMI 2022-11-28 20:40:00 43.45 kg/m2 [facility] Oxygen saturation in 2022-11-28 20:40:00 99 /min [facility] blood by [place] [facility] Systolic blood 2022-10-25 16:42:00 132 mm[Hg] Univer [facility]ity [facility] Diastolic blood 2022-10-25 16:42:00 77 mm[Hg] Unive rsity of [facility] Heart rate 2022-10-25 16:41:00 76 /min [facility] Body temperature 2022-10-25 16:41:00 36.28 [place] [facility] Respiratory rate 2022-10-25 16:41:00 18 /min Univ [facility] Body height 2022-10-25 16:41:00 167.6 cm [facility] Body weight 2022-10-25 16:41:00 121.11 kg [facility] BMI 2022-10-25 16:41:00 43.09 kg/m2 [facility] Oxygen saturation in 2022-10-25 16:41:00 98 /min [facility] blood by [place] [facility] Systolic blood 2022-06-08 18:22:00 162 mm[Hg] Univer sity of pressure [facility] Diastolic blood 2022-06-08 18:22:00 86 mm[Hg] Unive rsity of pressure [facility] Heart rate 2022-06-08 18:21:00 82 /min Universi ty of [facility] Respiratory rate 2022-06-08 18:21:00 18 /min [facility] Body weight 2022-06-08 18:21:00 112.946 kg Universi ty [facility] BMI 2022-06-08 18:21:00 40.19 kg/m2 Universi ty [facility] Oxygen saturation in 2022-06-08 18:21:00 98 /min University of Arterial blood by [facility] Pulse oxim[facility] Branch Systolic blood 2022-09-11 19:07:01 151 mm[Hg] Univer [facility]ity of [facility] Diastolic blood 2022-09-11 19:07:01 86 mm[Hg] Unive rsity of [facility] Heart rate 2022-09-11 19:07:01 67 /min [facility] [place] [facility] Body temperature 2022-09-11 19:07:01 36.89 [place] [facility] ers[facility] of [facility] Respiratory rate 2022-09-11 19:07:01 14 /min [facility] Body weight 2022-09-11 19:07:[address] [facility] BMI 2022-09-11 19:07:01 39.58 kg/m2 [facility]i [facility] Oxygen saturation in 2022-09-11 19:07:01 100 /min University of Arterial blood by [facility] Procedures Procedure Date / Time Performing Clinician Source Performed MR LUMBAR SPINE WO 2023-01-23 16:49:07 [facility] FREE T4 2022-11-28 21:57:00 Spike Caldwell [facility] THYROID STIMULATING 2022-11-28 21:57:00 Spike Caldwell [facility] HORMONE [facility] COMP. METABOLIC PANEL 2022-11-28 21:57:00 Spike Caldwell [facility] ([id number]) Medical Branch LIPID PANEL ([id number])(TOTAL 2022-11-28 21:57:00 Spike Caldwell [facility] CHOLESTEROL, [facility] TRIGLYCERIDES, HDL) CBC WITH DIFF 2022-11-28 21:57:00 Spike Caldwell [facility] GLYCOSYLATED HEMOGLOBIN 2022-11-28 21:57:00 Spike Caldwell [facility] (A1C) [facility] FREE T3 2022-11-28 21:57:00 Spike Caldwell [facility] CALCIUM LEVEL 2022-09-11 17:53:15 [facility] Center MAGNESIUM LEVEL 2022-09-11 17:53:15 [facility] PHOSPHORUS LEVEL 2022-09-11 17:53[facility] ALB[facility] 2022-09-11 17:53:15 [facility] PTH INTACT 2022-09-11 17:53:15 [facility] Center MAGNESIUM LEVEL 2022-09-06 08:41:00 [facility] er Center CALCIUM LEVEL 2022-09-06 08:41[facility] PHOSPHORUS LEVEL 2022-09-06 08:41:[address] [facility] er Center PTH INTACT 2022-09-06 08:41:00 [facility] er Center ALBUMIN LEVEL 2022-09-06 08:41:00 [facility] er Center POC GLUCOSE SCREEN 2022-09-05 21:32:00 [facility] ALBUMIN LEVEL 2022-09-05 17:31:00 [facility] P[facility]TACT 2022-09-05 17:31:00 [facility] er Center CALCIUM LEVEL 2022-09-05 17:31:00 [facility] er Center MAGNESIUM LEVEL 2022-09-05 17:31:00 [facility] er Center PHOSPHORUS LEVEL 2022-09-05 17:31:00 Andrew [facility] Center POC GLUCOSE SCREEN 2022-09-05 16:22:00 Elda Cervantes [facility] PATHOLOGY SURGICAL 2022-09-05 15:59:00 Elda Cervantes [facility] INTERPRETATION [facility] TOTAL OR COMPLETE 2022-09-05 13:20:00 Elda Cervantes [facility] THYROIDECTOMY [facility] POC GLUCOSE SCREEN 2022-09-05 13:16:00 Elda Cervantes [facility] Center TYPE AND SCREEN 2022-09-05 12:48:00 [facility] ABORH 2022-09-05 12:48:00 [facility] ANTIBODY SCREEN 2022-09-05 12:48:00 [facility] CLOT EXPIRATION DATE 2022-09-05 12:48:00 [facility] TMP INTERPRETATION 2022-09-05 12:48:00 [facility] ANTIBODY SCREEN NEGATIVE MD Ben lizarraga [facility] COVID-19 (SARS-COV-2) PCR 2022-09-03 15:54:00 Tenzin Drew [facility] Center ASSIGNMENT OF BENEFITS 2022-07-11 19:32:34 Doctor Unassigned, [facility] [place] [facility] Plan of Care Planned Activity Planned Date Details Comments Source Future Scheduled 2023-03-28 COVID-19 [facility]ination [facility] Test 02:11:39 (#1) [code = COVID-19 Cancer Vaccination (#1)] Center Encounters Start End Encounter Admission Attending Care Care Encounter Source Date/Time Date/Time Type Type Clinicians Facility Department ID 2022-07-23 Outpatient SYSTEM, [facility] [id number] 15:56:30 PROVIDER Nasim pace 2021-07-24 Emergency X [facility] [id number] Univers 08:09:15 ity [facility] 2021-07-20 Emergency [facility] [id number] Univers 20:28:53 ity [facility] 2023-09-24 2023-09-24 Outpatient R [facility] [id number] Univers 15:00:00 15:00:00 ity of [facility] 2023-08-19 2023-08-19 [facility] [id number] [id number] Univers 00:00:00 00:00:00 Spike MATTHEWS [id number] i ty of [id number] [id number] Nv dical NAL [address] [facility] 2023-07-29 2023-07-29 Patient Doctor [facility] [id number] Univers 00:00:00 00:00:00 Secure Msg UnassignedCASSIE [id number] ity [id number] [id number] Nv dical NAL 0[address] [facility] 2023-07-27 2023-07-27 Telephone SAVITA Caldwell [id number] Univers 00:00:00 00:00:00 Spike PEDIATRIC [id number] it[id number] [id number] [place] [id number] [facility] 2023-07-23 2023-07-23 [place] 2, Adc Lab [facility] [id number] Univers 15:00:00 15:15:00 Visit Spike Caldwell [id number] ity [id number] [phone] [facility] [address] [facility] 2023-07-23 2023-07-23 Outpatient R JAVI [facility] [id number] Univers 13:40:00 14:48:02 PETER ity of [facility] 2023-07-23 2023-07-23 Office [facility] [id number] [facility] 13:40:00 14:48:02 Visit Spike MATTHEWS [id number] i [id number] [id number] Nv dical NAL [address] [place] [address] 2023-06-26 2023-06-26 Telephone [facility] [id number] Univers 00:00:00 00:00:00 Ogluz marinajohn CASSIE [id number] [id number] [id number] Nv dicnh NAL [address] [place] [address] 2023-06-20 2023-06-20 Refill [facility] [id number] Univers 00:00:00 00:00:00 Jayna MATTHEWS [id number] [id number] [phone] Nv dicnh NAL [address] [place] [address] 2023-06-04 2023-06-04 Refill [facility] [id number] [id number] Univers 00:00:00 00:00:00 Spike MATTHEWS 350.1.13.10 i ty of [place] [phone] Nv dicnh NAL [address] [place] [address] 2023-05-29 2023-05-29 Patient [facility] 1.2.840.114 106 [id number] Univers 00:00:00 00:00:00 Secure Msg Spike MATTHEWS 350.1.13.10 it[place] [phone] Nv dical NAL [address] [place] [address] 2023-04-15 2023-04-15 Refill [facility] 1.2.840.114 105 [id number] Univers 00:00:00 00:00:00 Spike MATTHEWS 350.1.13.10 i [place] [id number] Nv dical NAL [address] [place] [address] 2023-04-15 2023-04-15 [facility] 1.2.840.114 105 [id number] Univers 00:00:00 00:00:00 Spike MATTHEWS 350.1.13.10 i ty [facility] [place] [id number] [address] 2023-04-14 2023-04-14 [facility] 1.2.840.114 105 [id number] Univers 00:00:00 00:00:00 Spike MATTHEWS 350.1.13.10 i [place] [id number] [facility] NAL [address] [place] [address] 2023-03-02 2023-03-02 [facility] 1.2.840.114 103 [id number] Univers 00:00:00 00:00:00 Spike MATTHEWS 350.1.13.10 i [place] [id number] [facility] NAL [address] [place] [address] 2023-03-01 2023-03-01 [facility] 1.2.840.114 103 [id number] Univers 00:00:00 00:00:00 Spike MATTHEWS 350.1.13.10 i [place] [id number] [address] 2023-02-28 2023-02-28 Outpatient R [facility] [id number] Univers 13:00:00 14:12:29 SPIKE tucker [facility] 2023-02-28 2023-02-28 [facility] 1.2.840.114 101 [id number] [facility] 13:00:00 14:12:29 Visit Spike MATTHEWS 350.1.13.10 i ty of [facility] 4.2.7.2.[place] [phone] Nv dicnh NAL [address] [place] [address] 2023-02-27 2023-02-27 Elda Kim 1.2.840.1 [id number] Univers 00:00:00 00:00:00 Y. 60984.1.1 ity of 3.412.2.7 [place] .3.401753 MD .8 [facility] 2023-02-27 2023-02-27 [facility] 1.2.840.114 103 [id number] Univers 00:00:00 00:00:00 Spike MATTHEWS 350.1.13.10 i [place] [id number] [address] 2023-02-24 2023-02-24 [facility] 1.2.840.114 103 [id number] Univers 00:00:00 00:00:00 Spike MATTHEWS 350.1.13.10 i [place] [id number] [address] 2023-02-13 2023-02-13 [facility] 1.2.840.114 103 [id number] Univers 00:00:00 00:00:00 Spike MATTHEWS 350.1.13.10 i [place] [id number] [address] 2023-01-28 2023-01-28 [facility] 1.2.840.114 103 [id number] Univers 00:00:00 00:00:00 Spike MATTHEWS 350.1.13.10 i [place] [phone] [address] 2023-01-23 2023-01-23 Outpatient R RADIOLOGY [facility] [id number] Univers 10:45:31 23:59:00 ity of [facility] 2023-01-23 2023-01-23 Hospital Radiology [facility] 1.2.840.114 102 [id number] Univers 10:45:31 23:59:00 Encounter CASSIE 350.1.13.10 ity of [facility] 4.2.7.2.[place] [id number] [facility] [address] [place] 2023-01-23 2023-01-23 Refill [facility] 1.2.840.114 102 [id number] Univers 00:00:00 00:00:00 Peter CASSIE 350.1.13.10 i ty [place] [id number] Nv dical NAL [address] [place] [address] 2023-01-18 2023-01-18 Refill [facility] 1.2.840.114 27538 5347 Univers 00:00:00 00:00:00 Ogdavinamagdalenajohn CASSIE 350.1.13.10 [place] [phone] Nv dicnh NAL [address] [place] [address] 2023-01-17 2023-01-17 Telephone [facility] 1.2.840.114 102 [id number] Univers 00:00:00 00:00:00 Ogluz marinajohn CASSIE 350.1.13.10 it[place] [phone] Nv dical NAL [address] [place] [address] 2022-12-04 2022-12-04 Patient [facility] 1.2.840.114 101 [id number] Univers 00:00:00 00:00:00 Secure Msg Spike CASSIE 350.1.13.10 it[place] of [place] [phone] Nv dical NAL [address] [place] [address] 2022-12-02 2022-12-02 Refill [facility] 1.2.840.114 101 [id number] Univers 00:00:00 00:00:00 Spike MATTHEWS 350.1.13.10 i ty of [facility] 4.2.7.2.[place] [id number] Nv dical NAL 044 [facility] 2022-12-01 2022-12-01 Refill [facility] 1.2.840.114 101 [id number] Univers 00:00:00 00:00:00 Spike MATTHEWS 350.1.13.10 i ty of [facility] 4.2.7.2.[place] [id number] Nv dical NAL 044 [facility] 2022-11-28 2022-11-28 Housesmith 2, Adc Lab [facility] 1.2.840.114 [id number] [facility] 16:00:00 16:15:00 Visit Spike Caldwell 350.1.13.10 ity of [place] [phone] Nv dical NAL 353 [facility] 2022-11-28 2022-11-28 Outpatient [facility] 1043 [id number] [facility] 14:00:00 15:56:57 SPIKE tucker [facility] 2022-11-28 2022-11-28 Office [facility] 1.2.840.114 100 [id number] [facility] 14:00:00 15:56:57 Visit Spike MATTHEWS 350.1.13.10 i [place] [phone] Nv dical NAL 044 [facility] 2022-11-28 2022-11-28 Office [facility] 1.2.840.114 100 [id number] [facility] 14:20:00 14:40:00 Visit Spike MATTHEWS 350.1.13.10 i ty [place] [id number] Nv dical NAL 044 [facility] 2022-11-28 2022-11-28 Refill [facility] 1.2.840.114 101 [id number] Univers 00:00:00 00:00:00 Spike MATTHEWS 350.1.13.10 i ty [place] [id number] Nv dical NAL 044 [facility] 2022-11-28 2022-11-28 [facility] 1.2.840.114 101 [id number] Univers 00:00:00 00:00:00 Spike MATTHEWS 350.1.13.10 i ty [place] [id number] [address] 2022-11-23 2022-11-23 Patient Doctor SARAHI 1.2.840.114 [id number] Univers 00:00:00 00:00:00 Secure Msg Unassigned, GEORGE 350.1.13.10 [facility] 4.2.7.2.[id number] [facility] [address] [place] 2022-11-03 2022-11-03 Patient Doctor SARAHI 1.2.840.114 [id number] Univers 00:00:00 00:00:00 Secure Msg Unassigned, GEORGE 350.1.13.10 [facility] 4.2.7.2.[phone] [facility] [address] [place] 2022-10-25 2022-10-25 Outpatient R [facility] [id number] [facility] 10:40:00 11:38:11 SPIKE tucker of [facility] 2022-10-25 2022-10-25 Office [facility] 1.2.840.114 [id number] [id number] Univers 10:40:00 11:38:11 Visit Spike MATTHEWS 350.1.13.10 i ty [place] [id number] [address] 2022-10-02 2022-10-02 Patient [facility] 1.2.840.114 [id number] [id number] Univers 00:00:00 00:00:00 Secure Msg Spike MATTHEWS 350.1.13.10 it[place] [phone] [address] 2022-09-29 2022-09-29 Refill Elda Cervantes 1.2.840.1 [id number] Univers 00:00:00 00:00:00 Y. 06496.1.1 ity of 3.412.2.7 [place] .3.261925 MD Ortiz8 [facility] 2022-09-27 2022-09-27 [facility] 1.2.840.114 996 [id number] Univers 00:00:00 00:00:00 Spike TABSANDEEP 350.1.13.10 i nicho [facility] 4.2.7.2.686 Sherri sylvie LEEANNIO [phone] Nv dical NAL [address] [place] [address] 2022-09-25 2022-09-25 Outpatient R [facility] 1043 [id number] Univers 00:00:00 00:00:00 SPIKE tucker [facility] 2022-09-14 2022-09-14 Outpatient R [facility] [id number] Univers 14:00:00 14:00:00 SANDRA tucker [facility] 2022-09-13 2022-09-13 Telephone Garrett, 1.2.840.1 [id number] Univers 00:00:00 00:00:00 Agustín 31549.1.1 it y of Sarahi 3.412.2.7 [place] .3Angel423598 .8 [facility] 2022-09-11 2022-09-11 Office Elda Cervantes 1.2.840.1 [id number] Univers 13:00:00 14:44:18 Visit Y. 78104.1.1 ity of 3.412.2.7 [place] .3Angel625352 .8 [facility] 2022-09-11 2022-09-11 Outpatient ELDA DENNY MDA, MDA [id number] 12:37:43 14:44:18 Nasimizabel pace 2022-09-11 2022-09-11 Outpatient KELSI SERRANO MDA MDA [id number] 11:45:52 11:54:25 Nasimizabel pace 2022-09-11 2022-09-11 Travel 1.2.840.1 1.2.347.431 2420 [id number] Univers 00:00:00 00:00:00 03825.1.1 350.1.13.41 ity of 3.412.2.7 2.[place].3.698 [place] .3.017[place] 084.8 MD Mckay [facility] 2022-09-07 2022-09-07 Telephone Rodo, 1.2.840.1 [id number] Univers 00:00:00 00:00:00 Citlaly L 62902.1.1 ity of 3.412.2.7 [place] .3.355827 MD Mckay [facility] 2022-09-05 2022-09-06 Hospital Elda Cervantes 1.2.840.1 [id number] 1 [id number] Univers 05:48:00 15:27:00 Encounter Y. 30868.1.1 it y of 3.412.2.7 [place] .3.209327 MD Mckay [facility] 2022-09-05 2022-09-06 Outpatient ELDA [facility]ES [facility] HN Surgery [id number] 05:48:00 15:27:00 [facility] 2022-09-06 2022-09-06 Orders Kelsi Mcclain 1.2.840.1 [id number] 11 [id number] Univers 00:00:00 00:00:00 Only 39262.1.1 ity of 3.412.2.7 [place] .3.554083 MD Mckay [facility] 2022-09-05 2022-09-05 Surgery Elda Cervantes 1.2.840.1 [id number] 10 [id number] Univers 08:00:00 12:25:00 Y. 43395.1.1 ity of 3.412.2.7 [place] .3.678514 MD Ortiz8 [facility] 2022-09-05 2022-09-05 Anesthesia Laurie Montenegro 1.2.840.1 1010 [id number] Univers 08:00:00 11:10:00 Event oTni Roberson 93189.1.1 ity of 3.412.2.7 [place] .3.829973 MD Mckay [facility] 2022-09-05 2022-09-05 Inpatient ELDA DENNY [facility] MDA [id number] 07:47:07 07:59:19 Nasim pace 2022-09-05 2022-09-05 Travel 1.2.840.1 1.2.204.142 9162 [id number] Univers 00:00:00 00:00:00 05375.1.1 350.1.13.41 ity of 3.412.2.7 2.[place].7.3.698 [place] .3.887373 084.8 MD Ortiz8 [facility] 2022-09-04 2022-09-04 Anesthesia Esvin, 1.2.840.1 [id number] Univers 23:59:59 23:59:59 Event Bre 26900.1.1 ity of 3.412.2.7 [place] .3.433709 MD Ortiz8 [facility] 2022-09-04 2022-09-04 POHENRRY Drew, 1.2.840.1 [id number] 11 [id number] Univers 11:30:00 12:00:00 Appointmen Tenzin 39156.1.1 i ty of ts 3.412.2.7 [place] .3.196664 MD Ortiz8 [facility] 2022-09-04 2022-09-04 Outpatient LINDA DREW CARMEN MDA [id number] 07:05:05 07:05:05 TENZIN pace 2022-09-03 2022-09-03 Outpatient LINDA DREW CARMEN MDA [id number] 09:27:27 09:54:40 TENZIN pace 2022-09-03 2022-09-03 Clinical HarjeetcesardrayTenzin 1.2.840.1 1020 [id number] Univers 09:00:00 09:54:40 Support Breann West 68439.1.1 ity of 3.412.2.7 [place] .3.592856 MD Ortiz8 [facility] 2022-09-03 2022-09-03 Travel 1.2.840.1 1.2.858.830 6083 [id number] [facility] 00:00:00 00:00:00 18791.1.1 350.1.13.41 ity of 3.412.2.7 2.2.7.3.698 [place] .3.113780 084.8 MD .8 [facility] 2022-08-31 2022-08-31 [facility] .840.114 989 [id number] Univers 00:00:00 00:00:00 Spike MATTHEWS 350.1.13.10 i ty [place] 687.2777013 Nv dical [address] 2022-08-24 2022-08-24 Outpatient ELDA DENNY MDA MDA [id number] 12:39:54 13:25:12 Nasim o katelynn 2022-08-01 2022-08-01 Outpatient ELDA DENNY MDA MDA [id number] 13:08:05 13:08:05 Nasim o katelynn 2022-08-01 2022-08-01 Outpatient ELDA DENNY MDA MDA [id number] 13:07:47 13:07:47 Nasim o katelynn 2022-08-01 2022-08-01 Outpatient ELDA DENNY MDA MDA [id number] 11:18:37 11:44:54 Nasim o katelynn 2022-07-24 2022-07-24 Outpatient ELDA DENNY MDA MDA [id number] 10:55:29 10:59:13 Nasim o katelynn 2022-07-24 2022-07-24 Outpatient ELDA DENNY MDA MDA [id number] 08:46:41 10:54:04 Nasim o katelynn 2022-07-24 2022-07-24 Outpatient QUIANAJAIRO CARMEN MDA [id number] 08:35:28 08:36:55 Nasim o katelynn 2022-07-19 2022-07-19 [facility] ..840.114 [id number] Univers 00:00:00 00:00:00 Spike MATTHEWS 350.1.13.10 i ty [place].2.[place] [id number] [facility] 044 [facility] 2022-07-11 2022-07-11 [facility] 1.2.840.114 [id number] Univers 14:34:01 23:59:00 Encounter Spike MATTHEWS 350.1.13.10 it[place] [address] [id number] [facility] [address] [place] 2022-07-11 2022-07-11 Outpatient R [facility] [id number] [id number] Univers 14:34:01 23:59:00 PETER ity [facility] 2022-07-11 2022-07-11 Orders Doctor SARAHI 1.2.840.114 [id number] Univers 00:00:00 00:00:00 Only Unassigned, GEORGE 350.1.13.10 it[place] [facility] 4.2.7.2.[address] [facility] [address] [place] 2022-07-09 2022-07-09 [facility] 1.2.840.114 [id number] Univers 00:00:00 00:00:00 Spike MATTHEWS 350.1.13.10 i [place]2.[place] [id number] [address] 2022-06-23 2022-06-23 [facility] 1.2.840.114 [id number] Univers 00:00:00 00:00:00 Spike MATTHEWS 350.1.13.10 i ty [place].2.[place] 064.0732885 Nv dicnh NAL [address] [place] [address] 2022-06-23 2022-06-23 [facility] 1.2.840.114 [id number] Univers 00:00:00 00:00:00 Spike MATTHEWS 350.1.13.10 i ty [place].2.[place] 259.5335776 Nv dicnh NAL [address] [place] [address] 2022-06-21 2022-06-21 [facility] 1.2.840.114 [id number] Univers 00:00:00 00:00:00 Spike MATTHEWS 350.1.13.10 i [place].2.[place] 315.2778753 Nv dical NAL 044 [facility] 2022-06-20 2022-06-20 Outpatient R [facility] [id number] Univers 00:00:00 00:00:00 SPIKE tucker [facility] 2022-06-19 2022-06-19 Telephone [facility] 1.2.840.114 [id number] Univers 00:00:00 00:00:00 Spike MATTHEWS 350.1.13.10 i [place].2.[place] [id number] [facility] 044 [facility] 2022-06-13 2022-06-13 Patient Doctor SARAHI 1.2.840.114 [id number] Univers 00:00:00 00:00:00 Secure Msg Unassigned, GEORGE 350.1.13.10 ity of [place] [facility] 4.2.7.2.686 Timothy as 035.4225105 [address] 2022-06-08 2022-06-08 Housesmith 2, Adc Lab [facility] 1.2.840.114 [id number] Univers 14:30:00 14:45:00 Visit Spike Caldwell 350.1.13.10 ity [facility] 4.2.7.2.[place] 302.8144138 [facility] 353 [facility] 2022-06-08 2022-06-08 Outpatient R [facility]IJ.[facility] [id number] Univers 13:20:00 14:11:37 SPIKE tucker [facility] 2022-06-08 2022-06-08 Office [facility] 1.2.840.114 [id number] Univers 13:20:00 14:11:37 Visit Spike MATTHEWS 350.1.13.10 i ty [facility] 4.2.7.2.[place] [id number] Nv dical NAL 044 [facility] 2022-05-17 2022-05-17 Orders Doctor SARAHI 1.2.840.114 [id number] Univers 00:00:00 00:00:00 Only Unassigned, GEORGE 350.1.13.10 ity [place] [facility] 4.2.7.2.[address] [facility] [address] [place] 2022-05-15 2022-05-15 Outpatient R RADIOLOGY [facility] [id number] Univers 00:00:00 00:00:00 ity of [facility] 2022-05-10 2022-05-10 Hospital Radiology [facility] 1.2.840.114 [id number] Univers 08:57:28 23:59:00 Encounter ACSSIE 350.1.13.10 ity of [facility] 4.2.7.2.[place] [id number] [facility] [address] [place] 2022-05-10 2022-05-10 Outpatient R RADIOLOGY [facility] [id number] Univers 08:55:42 08:56:00 ity of [facility] 2022-05-10 2022-05-10 Hospital Radiology [facility] 1.2.840.114 [id number] Univers 08:55:42 08:56:00 Encounter TABASNDEEP 350.1.13.10 ity of [place] 4[place]2.7.2.[place] [address] [id number] [facility] [address] [place] 2022-05-10 2022-05-10 Outpatient R RADIOLOGY [facility] [id number] Univers 00:00:00 00:00:00 ity of [facility] 2022-05-09 2022-05-09 Anne Caal [facility] 1.2.840.114 [id number] Univers 00:00:00 00:00:00 [facility] 350.1.13.10 it y of Chris MATTHEWS 4.2.7.2.686 Timothy as NYA?BLEA 505.7955157 Nv dical KNEY [address] [place] [facility] 2022-04-24 2022-04-24 Anne Caal [facility] 1.2.840.114 [id number] Univers 00:00:00 00:00:00 [facility] 350.1.13.10 it y of [place] 4.2.7.2.686 Timothy as NYA?BLEA [id number] [facility] M[address] 2022-04-17 2022-04-17 [facility] 1.2.840.114 [id number] Univers 00:00:00 00:00:00 [facility] HEALTH 350.1.13.10 it y of [place] 4.2.7.2.686 Timothy as NYA?BLEA 800.2850884 [facility] MELY[address] 2022-03-31 2022-03-31 [facility] 1.2.840.114 [id number] Univers 00:00:00 00:00:00 [facility] 350.1.13.10 it y of [place] 4.2.7.2.686 Timothy as NYA?BLEA [id number] [facility] MELY[address] 2022-03-23 2022-03-23 [facility] 1.2.840.114 [id number] Univers 00:00:00 00:00:00 [place]pe [place] 350.1.13.10 i ty of [place] 4.2.7.2.[place] 673.7712568 [address] 2022-03-08 2022-03-08 [facility] 1.2.840.114 [id number] Univers 00:00:00 00:00:00 Spike [place] 350.1.13.10 i ty [place] 4[place].7.2.[place] 458.8512729 [address] 2022-03-05 2022-03-05 [facility] 1.2.840.114 [id number] Univers 00:00:00 00:00:00 [facility] 350.1.13.10 it y of [place] 4.2.7.2.686 Timothy as NYA?BLEA [id number] [address] 2022-02-25 2022-02-25 [facility]ley[facility] 1.2.840.114 [id number] Univers 00:00:00 00:00:00 [facility] 350.1.13.10 it y of [place] 4.2.7.2.686 Timothy as NYA?BLEA 523.7521125 [facility] MELY[address] 2022-02-16 2022-02-16 [facility] 1.2.840.114 [id number] Univers 00:00:00 00:00:00 [facility] 350.1.13.10 i ty of [place] 4.2.7.2.[place] [id number] [address] 2022-01-24 2022-01-24 Outpatient R RADIOLOGY [facility] [id number] Univers 00:00:00 00:00:00 ity of [facility] 2022-01-19 2022-01-19 [facility] 1.2.840.114 [id number] Univers 00:00:00 00:00:00 [facility] 350.1.13.10 it y of [place] 4.2.7.2.686 Timothy as NYA?BLEA [id number] [address] 2022-01-18 2022-01-18 [facility] 1.2.840.114 [id number] Univers 00:00:00 00:00:00 [facility] 350.1.13.10 it y of [place] 4.2.7.2.686 Timothy as NYA?BLEA 585.5112788 [facility] MELY[address] 2022-01-15 2022-01-15 [facility] 1.2.840.114 [id number] Univers 00:00:00 00:00:00 [facility] 350.1.13.10 it y of [place] 4.2.7.2.686 Timothy as PROFESSIO 733.0636361 [address] ONE 2022-01-11 2022-01-11 [facility] 1.2.840.114 [id number] Univers 00:00:00 00:00:00 [facility] HEALTH 350.1.13.10 it y of [place] 4.2.7.2.686 Timothy as PROFESSIO [id number] [address] ONE 2021-12-19 2021-12-19 [facility] 1.2.840.114 99331 135 Univers 00:00:00 00:00:00 [facility] HEALTH 350.1.13.10 it y of [place] 4.2.7.2.686 Timothy as PROFESSIO 488.4801292 [address] ONE 2021-12-11 2021-12-11 [facility] 1.2.840.114 [id number] Univers 00:00:00 00:00:00 [facility] 350.1.13.10 it y of [place] 4.2.7.2.686 Timothy as PROFESSIO [phone] [address] ONE 2021-11-30 2021-11-30 [facility] 1.2.840.114 [id number] Univers 00:00:00 00:00:00 [place] 350.1.13.10 i ty [place] [id number] [address] 2021-11-17 2021-11-17 [facility] 1.2.840.114 [id number] Univers 00:00:00 00:00:00 [facility] 350.1.13.10 it y of [place] 4.2.7.2.686 Timothy as PROFESSIO [id number] [address] ONE 2021-10-20 2021-10-20 [facility] 1.2.840.114 [id number] Univers 00:00:00 00:00:00 [facility] HEALTH 350.1.13.10 it y of [place] 4.2.7.2.686 Timothy as PROFESSIO [id number] [address] ONE 2021-10-15 2021-10-15 [facility] 1.2.840.114 [id number] Univers 00:00:00 00:00:00 [facility] 350.1.13.10 [facility] 4.2.7.2.686 Timothy as PROFESSIO [id number] [address] ONE 2021-10-09 2021-10-09 Orders Doctor SARAHI 1.2.840.114 [id number] Univers 00:00:00 00:00:00 Only Unassigned, GEORGE 350.1.13.10 ity [place] [facility] 4.2.7.2.686 Timothy as [id number] [address] 2021-09-05 2021-09-05 [facility] 1.2.840.114 [id number] Univers 00:00:00 00:00:00 [facility] 350.1.13.10 i ty of [place] [facility] 4.2.7.2.[place] [id number] [address] 2021-09-04 2021-09-04 [facility] 1.2.840.114 [id number] Univers 00:00:00 00:00:00 [facility] 350.1.13.10 it y [facility] [place] [facility] 4.2.7.2.686 Timothy as PROFESSIO [id number] [address] 2021-08-25 2021-08-25 [facility] 1.2.840.114 [id number] Univers 00:00:00 00:00:00 [facility] 350.1.13.10 it y [facility] [place] [facility] 4.2.7.2.686 Timothy as PROFESSIO [id number] [address] ONE 2021-08-01 2021-08-01 [facility] 1.2.840.114 [id number] Univers 00:00:00 00:00:00 [facility] 350.1.13.10 it y of [place] 4.2.7.2.686 Timothy as PROFESSIO [phone] [facility] NAL [address] [place] [address] ONE 2021-07-25 2021-07-25 [facility] 1.2.840.114 [id number] Univers 00:00:00 00:00:00 [facility] 350.1.13.10 it y of [place] 4.2.7.2.686 Timothy as PROFESSIO [id number] [address] ONE 2021-07-13 2021-07-13 [facility] 1.2.840.114 [id number] Univers 00:00:00 00:00:00 Spike Matthews 350.1.13.10 i [place] Profess[place] [phone] [address] 2021-07-06 2021-07-06 [facility] 1.2.840.114 [id number] Univers 00:00:00 00:00:00 [facility] 350.1.13.10 it y of [place] 4.2.7.2.686 Timothy as Professio [phone] [facility] nal [address] [place] [address] One 2021-06-14 2021-06-14 [facility] 1.2.840.114 [id number] Univers 00:00:00 00:00:00 Pepe Barthton 350.1.13.10 i ty of [place] [phone] [facility] nal [address] [place] [address] 2021-06-06 2021-06-06 [facility] 1.2.840.114 [id number] Univers 00:00:00 00:00:00 [facility] 350.1.13.10 it y of [place] 4.2.7.2.686 Timothy as Professio [phone] [facility] nal [address] [place] [address] One 2021-05-03 2021-05-03 [facility] 1.2.840.114 [id number] Univers 00:00:00 00:00:00 [facility] 350.1.13.10 it y of [place] 4.2.7.2.686 [place] as Professio [phone] [address] Office Building One 2021-04-24 2021-04-24 Outpatient Ash ALICEA [facility] [id number] Univers 09:30:00 09:30:00 SENDIL ity of [facility] 2021-04-17 2021-04-17 [facility] 1.2.840.114 [id number] Univers 00:00:00 00:00:00 [facility] 350.1.13.10 it y of [place] 4.2.7.2.686 [place] as Professio [phone] [address] Office [facility] One 2021-04-09 2021-04-09 SARAHI Love 1.2.840.114 [id number] Univers 00:00:00 00:00:00 Management Adarsh HarryAngelGlennAngel VAZQUEZ 350.1.13.10 ity of [facility] 4.2.7.2.[phone] [facility] [address] 2021-04-07 2021-04-07 Transition Shelbie Steiner 1.2.840.114 [id number] Univers 00:00:00 00:00:00 of Care Alyssa Moscoso 350.1.13.10 it y of [place].[address] [place] [phone] [facility] [address] 2021-04-05 2021-04-06 Emergency Gordon Belcher [facility] 1.2.840. 114 [id number] Univers 12:58:00 15:24:00 Abel Chapa 350.1.13.10 ity [place] [phone] [facility] 081 [address] 2021-03-24 2021-03-24 Outpatient Ash CAAL [facility] [id number] Univers 14:15:00 14:15:00 PEPE ity [facility] 2021-03-24 2021-03-24 [facility] 1.2.840.114 [id number] Univers 13:58:48 14:13:48 Visit [facility] 350.1.13.10 it y of [place] 4.2.7.2.686 [place] as Professio [phone] [address] One 2021-03-22 2021-03-22 [facility] AyakaZucker [facility] 1.2.840.114 [id number] Univers 00:00:00 00:00:00 [facility] 350.1.13.10 it y of [place] 4.2.7.2.686 [place] as Professio [phone] [address] One 2021-03-19 2021-03-19 [facility] 1.2.840.114 [id number] Univers 00:00:00 00:00:00 C Peck 350.1.13.10 i ty [place] [phone] [address] 2021-02-17 2021-02-17 [facility] 1.2.840.114 [id number] Univers 00:00:00 00:00:00 Pepe Peck 350.1.13.10 i ty of [place] [phone] [address] 2021-02-14 2021-02-14 [facility] AyakaZucker [facility] 1.2.840.114 [id number] Univers 00:00:00 00:00:00 [facility] 350.1.13.10 it y of [place] 4.2.7.2.686 [place] Professio [phone] [address] One 2021-02-06 2021-02-06 [facility] 1.2.840.114 [id number] Univers 00:00:00 00:00:00 [facility] 350.1.13.10 it y of [place] 4.2.7.2.686 [place] as Professio [phone] [facility] [address] [place] Office [facility] One 2021-01-26 2021-01-26 Orders Doctor SARAHI 1.2.840.114 [id number] Univers 00:00:00 00:00:00 Only Unassigned, GEORGE 350.1.13.10 ity of [place] [facility] 4.2.7.2.[phone] [facility] [address] [place] 2021-01-21 2021-01-21 Refill [facility] 1.2.840.114 [id number] Univers 00:00:00 00:00:00 [facility] 350.1.13.10 it y of [place] 4.2.7.2.686 [place] Professio [phone] [address] 2021-01-04 2021-01-04 [facility] 1.2.840.114 [id number] Univers 00:00:00 00:00:00 [facility] 350.1.13.10 it y of [place] 4.2.7.2.686 [place] as Professio [phone] [address] 2021-01-04 2021-01-04 [facility] 1.2.840.114 [id number] Univers 00:00:00 00:00:00 Spike Matthews 350.1.13.10 i ty of [place].2.[place] [phone] [address] 2020-12-06 2020-12-06 [facility] 1.2.840.114 [id number] Univers 00:00:00 00:00:00 Outreach Simba PRIMARY 350.1.13.10 i ty of [place].2.7.2.[place] [facility] [phone] [address] 2020-11-20 2020-11-20 [facility] 1.2.840.114 [id number] Univers 00:00:00 00:00:00 [facility] 350.1.13.10 it y of [place] 4.2.7.2.686 [place] as Professio [phone] [address] Office [facility] One 2020-11-03 2020-11-03 Patient [facility] 1.2.840.114 [id number] Univers 00:00:00 00:00:00 Secure Msg Pepe [facility] 350.1.13.10 ity of [place] 4.2.7.2.686 Timothy as PROFESSIO [phone] [address] OFFICE [facility] ONE 2020-10-25 2020-10-25 Office [facility] 1.2.840.114 [id number] Univers 12:30:04 13:35:12 Visit [facility] 350.1.13.10 it y of [place] 4.2.7.2.686 [place] as Professio [phone] [address] One 2020-10-25 2020-10-25 Outpatient R [facility] [id number] Univers 13:00:00 13:00:00 PEPE ity of [facility] 2020-10-12 2020-10-12 [facility] 1.2.840.114 [id number] Univers 00:00:00 00:00:00 Spike Matthews 350.1.13.10 i ty [place] [phone] [address] 2020-10-11 2020-10-11 [facility] 1.2.840.114 [id number] Univers 00:00:00 00:00:00 Spike Matthews 350.1.13.10 i ty of [place].2.[place] [phone] [address] 2020-10-09 2020-10-09 [facility] 1.2.840.114 [id number] [id number] Univers 00:00:00 00:00:00 Spike Matthews 350.1.13.10 i ty of [place]2.[place].2.[place] [phone] N[place] dicnh nal [address] [place] [address] 2020-09-28 2020-09-28 [facility] 1.2.840.114 [id number] [id number] Univers 00:00:00 00:00:00 Spike Matthews 350.1.13.10 i ty of [place] 4[place]2.[place].2.[place] [phone] [facility] nal [address] [place] [address] 2020-09-26 2020-09-26 [facility] 1.2.840.114 [id number] [id number] Univers 00:00:00 00:00:00 Spike Matthews 350.1.13.10 i ty [place].2.[place] [phone] [address] 2020-09-21 2020-09-21 Refill [facility] 1.2.840.114 [id number] [id number] Univers 00:00:00 00:00:00 Mary Matthews 350.1.13.10 ity of [place].2.[place] [phone] [address] 2020-09-01 2020-09-01 Refill [facility] 1.2.840.114 [id number] Univers 00:00:00 00:00:00 Spike Matthews 350.1.13.10 i ty of [place].2.[place] [phone] [address] 2020-08-12 2020-08-12 Outpatient R [facility] [id number] Univers 14:00:00 14:00:00 SPIKE tucker [facility] 2020-07-01 2020-07-01 [facility] 1.2.840.114 [id number] Univers 00:00:00 00:00:00 Pepe Matthews 350.1.13.10 i ty of [place].2.7.2.[place] [phone] Me dic[address] 2020-07-01 2020-07-01 [facility] 1.2.840.114 [id number] Univers 00:00:00 00:00:00 Spike Matthews 350.1.13.10 i ty of [place].2.[place] [phone] [address] 2020-06-14 2020-06-14 [facility] 1.2.840.114 [id number] Univers 00:00:00 00:00:00 Spike Matthews 350.1.13.10 i ty [place].2.[place] [phone] [address] 2020-06-09 2020-06-09 [facility] 1.2.840.114 [id number] [id number] Univers 00:00:00 00:00:00 Spike Matthews 350.1.13.10 i ty of [place]2.[place].2.[place] [phone] [address] 2020-06-05 2020-06-05 [facility] 1.2.840.114 [id number] Univers 00:00:00 00:00:00 Spike Matthews 350.1.13.10 i ty of [place]2.7.2.[place] [phone] [address] 2020-06-02 2020-06-02 Patient Doctor SARAHI 1.2.840.114 [id number] Univers 00:00:00 00:00:00 Secure Msg Unassigned, GEORGE 350.1.13.10 ity of [place] [facility] 4.2.7.2.686 Timothy as [phone] [address] 2020-06-02 2020-06-02 Patient Doctor SARAHI 1.2.840.114 [id number] Univers 00:00:00 00:00:00 Secure Msg Unassigned, GEORGE 350.1.13.10 ity of [place] [facility] 4.2.7.2.686 Timothy as [phone] [address] 2020-05-12 2020-05-12 Office [facility] 1.2.840.114 [id number] [id number] Univers 13:20:41 14:55:15 Visit Spike Matthews 350.1.13.10 i ty of [place]2.[place].2.[place] [phone] N[place] dic[address] 2020-05-12 2020-05-12 Outpatient R [facility] [id number] Univers 14:00:00 14:00:00 SPIKE garrett [facility] 2020-03-18 2020-03-18 Telephone [facility] 1..840.114 7 [id number] Univers 00:00:00 00:00:00 Spike Matthews 350.1.13.10 i ty of [place]2.[place].2.[place] [phone] [address] 2020-03-15 2020-03-15 Refill [facility] ..840.114 763 [id number] Univers 00:00:00 00:00:00 Spkie Matthews 350.1.13.10 i ty of [place]2.7.2.[place] [phone] [address] 2020-03-14 2020-03-14 Outpatient R [facility] [id number] Univers 12:52:57 23:59:00 SHENG tucker [facility] 2020-03-14 2020-03-14 [facility] ..053.326 [id number] 6122 Univers 12:52:00 23:59:00 Encounter Sheng Matthews 350.1.13.10 ity of [place]2.[place].2.[place] [phone] [facility] [address] [place] 2020-02-10 2020-02-10 Outpatient R [facility] 1027 [id number] Univers 15:00:00 15:00:00 SPIKE tucker [facility] 2020-02-10 2020-02-10 Telemedici Pepe Caal [facility] 1 ..840.114 [id number] Univers 08:10:41 08:25:41 ne Visit StephanievladimirSpike vital 350.1.13.10 ity of [place]2.[place].2.[place] [phone] [address] 2020-02-01 2020-02-01 Telephone [facility] 1.2.840.114 [id number] Univers 00:00:00 00:00:00 Spike Matthews 350.1.13.10 i ty of [place]2.[place].2.[place] [phone] [address] 2020-01-31 2020-01-31 [facility] 1.2.840.114 [id number] Univers 13:25:14 16:46:00 Blanca Matthews 350.1.13.10 ity of [place] 4.2.7.2.686 [place] [phone] [address] 2020-01-27 2020-01-27 Telephone [facility] 1.2.840.114 [id number] Univers 00:00:00 00:00:00 Spike Matthews 350.1.13.10 i ty of [place]2.7.2.[place] [phone] [address] 2020-01-24 2020-01-24 Refill [facility] 1.2.840.114 [id number] [id number] Univers 00:00:00 00:00:00 Spike Matthews 350.1.13.10 i ty of [place] 4[place]2.7.2.[place] [phone] [address] 2020-01-05 2020-01-05 Emergency X CHACON, [facility] ERT [id number] Univers 14:50:28 18:20:00 NABOR ity of [facility] 2020-01-05 2020-01-05 Emergency [facility] 1.2.840.114 [id number] Univers 14:50:28 18:20:00 Nabor Matthews 350.1.13.10 i ty of [place] 4.2.7.2.686 [place] [phone] [facility] [address] [place] 2019-12-29 2019-12-29 RefPepe Dia [facility] 1.2.840.114 [id number] Univers 00:00:00 00:00:00 C Peck 350.1.13.10 i ty of [place] 4[place]2.7.2.[place] [phone] Nv dical nal [address] [place] [address] 2019-12-26 2019-12-26 [facility] 1.2.840.114 [id number] Univers 00:00:00 00:00:00 C Peck 350.1.13.10 i ty of [place]2.[place].2.[place] [phone] [facility] 044 [facility] 2019-10-30 2019-10-30 [facility] 1.2.840.114 [id number] [id number] Univers 00:00:00 00:00:00 Spike Matthews 350.1.13.10 i ty of [place] 4.2.7.2.[place] [phone] Nv dicnh nal [address] [place] [address] 2019-10-16 2019-10-16 Telephone [facility] 1.2.840.114 [id number] Univers 00:00:00 00:00:00 Rossana Matthews 350.1.13.10 i ty of [place] 4[place]2.7.2.[place] [phone] [facility] 377 [facility] 2019-10-16 2019-10-16 [facility] 1.2.840.114 [id number] [id number] Univers 00:00:00 00:00:00 Spike Matthews 350.1.13.10 i ty of [place] 4[place]2.7.2.[place] [phone] Nv dical nal [address] [place] [address] 2019-10-15 2019-10-15 Office [facility] 1.2.840.114 [id number] Univers 09:58:16 13:03:33 Visit Spike Matthews 350.1.13.10 i ty of [place] 4[place]2.7.2.[place] [phone] [address] 2019-04-28 2019-04-28 Telephone Shelbie Strickland 1.2.840.114 [id number] Univers 00:00:00 00:00:00 Daniela Moscoso 350.1.13.10 ity of [place]2.7.2.[place] [phone] [address] 2019-04-20 2019-04-20 Anne Parker [facility] 1.2.840.114 [id number] Univers 00:00:00 00:00:00 Concha Cassie 350.1.13.10 i ty of [place]2.[place].2.[place] [phone] [address] 2019-02-06 2019-02-06 Office DejuanPepe [facility] 1.2.840.114 [id number] [facility] 13:57:47 15:09:49 Visit Vielka Matthews 350.1.13.10 i ty of [place].2.[place] [phone] [address] Results Test Description Test Time Test Comments Results Result Comments Source Pathology Surgical Interpretation 2022-09-11 18:32:07 Test Item Value Reference Range Interpretation Comme nts Submitted a5mqiAXvAYVco0ypWSEwbZNgTkRuYbZzDvHjImhviVCdHFvlguPbSUzlb0XlA8AzUbSjHEhkimRyZZZd CygupvdzMBTmWGM6nvIfIFBbHQnfPUGcBUktPq7ybSMdvDjjKbKsIGZry2rfmzPFanlacYs7n3kiEYWb WiY8cNWmRWaiS8obmkWiyULaZREnZZy2zG54ABKrlB6lvXLhQBbolsVbKvR6CFceRQDyK Clinical bW6YOBevFDuDATmA8nrDGKyHEqiGMAdRJkbwEGmEKA7dGrkf8P4yNWqvWXfhOgvCpLuItHqXxRNt9YiD Wz0nHfeS8RbSICiOcO4yQFjVWUmLQmyZDUdPLBrtkL0zW84WWhzmzB7wBTtk8Uae33ex031lO5mjFXwB UO5DFCpLORklJCaFVBzTMS1VOXnuLVvE2qrRXMoXP5ewsjgCPozMIzfRPWnwXL5PUGmbA History XmM4CkZOXfNIrpGGDdipd8PgLvRh2kzJLrpGpqQAwpa3hiw6racSJtWcp5WQMsPySxPzexUGyhx7Luu3 eeZJRrxr5hNBF5pUXcnXcpl8O6iUVwEFLxnMKwkxTnROTrBlZ4HKgkGN1nar70ZKAiFXB0rj7otOKthA pfhaXhaGGvDJkqA8ZlXYUck051JHQlC5JbYMLxj8M8exIeHoBvNZNejBJ3lwT6VMGhEMl (test code 8eUCvokN5kdYirLEnU8jgaV4cCTVqPH5lqcbfs5fkCZluHKeyAUUpfIW2oqN0JXOkwPRgB9NwvU6nTFM aAOkhNZLuftm3DqGaEr2wzIVbcKyjOSlqFldlUGelPTQecgMekjQoyKhaVSWfFCRdGKxjFZRqTYabXVK wCCWoJnByaKozfIyxgA8uRaJyHrVvMFbvSK7iSDVxR3iixORpGTNkJXQuR3wxWxHjjZ4q = 28237) uLaeTFgaciMvNSTefWZcaWGazb2mcJyrWHfVCYVqRU0dwKfjrA5nQcVzMlBjNbtlRE8wMKNyX7qbxLZz JAJlBMMxW0rgGcUufA8vbZvvBWikgtVcQGRhwm14 Diagnosis l5tkfSSlXXBbyJHrSQDsPzyjxhZhUHOysEMbN0FbntvbYVqqMM1pPO7mrKtxuUGhuLFlCKTqQcWaq8qo y984mCErn6nsYGBWbiskkWs6zZsoX20zv6A9VvjyY0chKROnCLbcOAJaZUixnQNwKJx2AKVjsVMvymXf MoLkPKLfyEObgEU9BNYyMZ8ojtbeBAxpJChxTTJkqgN6WTOzeXQoY0EkHRFeJE1meauxI (test code OP9CGlpAZIsYNG7WmUcCHRgo7Guxgz1UsKeoLBbOPvsaZKkencfojTfTONqTANMqUfdsES9oMegw5pqR QhzWhGlzV2ahJSbEWofRTOxD0z9MRJ4WtH9MMAzCRqdyGSqvsyCZJCnkeFipIPazNRuZDWwk6E3ACYaT NwtmTEtmoJwFyc5NHTlegvfEKScBQysYwKmAQbmjdyrLQd0uMY6UKHoF6VeNNBvorVIe6 = 34) ffxGZ6rUJxWNZxGV8fkNX3i4UxLMk6dCNoaDjag5jnQHBrGqSrutPmQxkrlELgSKOnqcMuwRGgMVVgFU dsLBGklKSrKJoixNxpFCwxyG49LdGnaTtzCTfyMMRzRXrcNVAsmQTnYPSZBW6wEnJATWBxqd3= Gross s4hicVZdKUQnqWFhSQRqBcwxvdVcFBIteFGaH2AphxvsMLwnIT4wTN6blNokaQTdvKFcCWJaRvKei9ug l663bPGde6koLOMYfubcaWg3pYddA77sb8A9OxbtF6yxTYDaTXgxPLKkBEiizOEuDYt8PWXxxMKpsyKp UhPkFQYfyKSmbFB0SQDqIV7rwnfwGXjbWZpdAUTwydK8VAKqeUMdI5HbGLDaWA7sxkjnY Descriptio AI3RFbeZJYvLIN8CpFeFAZdv2Zulnw4GdI1VEqhGKBpK3MfV2GnFZxgAMH2RIOqWXOwKRMwZV3ZCiUhH OMmSFS2ZIRmOKBKKTDmJnG9FQN0ZAEAVXFkMKTjIKB3FBH6FUPrHIQYSYRvFaDwBUSxIxKqRJsjjMEnY SJkXIWmQYBzNOskhaF8h5asCDCtiSNuJPI8NPoidONjPNUqOKIwAQelIdBJNhAiZnIjYP n (test L0Irt9IlN4WVm2MQGIEkZdHwVnKPSfVUJhIJroLRa2ZIl1UJsMQnEwLcNhYqW0GHZ4SZN2YZovAWdtpZ HyEJuja2VaUmAnKAIjQOhnowG0TRSuwzFvxPumjN8uFpesynNmJBN3KRXfeqdgFTRvMPNpAkGsSVMrI4 owQcVbGNIhFFptWZPxPgYlWKoxSjOgLypetHNgiNa9de2sMPPmt8WzA7FpjEagz5WnpWK code = vEUK7rFAuvK8zQBWdtARgDPEjlf0vchVikRuqD8VkBUnuSnZgPUMxluWiq9WkPL9nFHKrKh89HUzmMk3 2BBtfNa2pEJMgUTEbgMUwfLXfoT3lKDT1b105AtXOPQJucGcbIIF1qlqan37bgIcxhjUfsYTvINXbfBa 9Z8tnXTOtvCloXEZjweixvGwdESG7fVNyeX3hCLLpdEXsDLPvSFDtBBJikGrnNAjsNPFb 7657696849 qo8xxj21pcTjalKplR07RMM1IyUptVRjLWVtteMnAmm9ClZbXOemOHVtDSCefYNjLAzoFNBfwaxxiBp1 FLSbL3Nur35oXZOjsk6fABB0oZLdjU3pCUMkGWbzCiDxzR2bDVJxLAPykD0vm2QqMAPqSO95jIExlPla XN5vRYWlIXKgGRUshjhsvvfgFhVtrSFdYrMmNA67JSHhGIgeWPabMNQ7CYA7GTBqmOOkr ) [file] R0PqjbX8CYXyrd9= Biomarker n4nggQSyBYTchWEkQFJeWzmqprGtEFEwyLVlT7IoyxhdSFaqQQ0oCW1fzKfrgICiyAOvXNKrXjVjs7mw i181jIIyh9vfZIMRjxowkHe7cNcyT34ye7F9IxpbJ05lzMXpIRI8JJGbAWFtdTZoKGLwIDF3IOZqqCQs Z4wlXDOeZN4kuzbiUKicSMbzPENiiEW1JQJeoVLcK1ZsKGLeQTqwGNPpgpe4XkDwHi4pj Block(s) GVyeTcyMFxwYXJkXHBsYWluXGZzMjAgTkFccGFyfQ== (test code = 9841) Disclaimer j6lupSPlSFWvoMSpGzMxBKWyMNPon4biQWQfqBGjEhToPdHoSvQfVbcpaCSnIKCuPzDpl5jwi310jXGb e9qqSWEnZuA3nCRfIOXhdYGsK589VGVtDYpwl5nqv7KoKAMzpOAuj8P6OWOBemckeEq5fNphI59sn0Q6 GvtjJ2kgQUGkMBOmY9VqBA3sDXWgFom3LCV6HMW2FIRbNKXvP2LhIH8dLLEcqTSzQCl5l (test code 5wldFmuDFKoWTN0h1ogKXgeeiQqVR4gzo0lyAr6p4oejtLySLQlPKIcyUFJKVBuH4WaqRpiOz7oeLr3q RoiJwskXTX6Wos3VH2fhf47lvk3jPluQFXnjswbFiB9EClyDEPvjspwNTf5TLemMCLorFO9UZEmpQRyY 7PvEQHvGW9mszc8HWL4NDqsLKLtKfT8WWTjsITsSNCzfHrgYEgnq208UFN2OuTtFD6bZ7 = 9844) Tss7C0fM0clPSwOAGenBCdMfZoCZZehn5zuXHuVXjbw2TrSSZ9eoX6gAIaaJVhKJHuLH97Ruagm1TrXj xyHEB1MSTpszGoe9Orf6adUqEmiiIwD5eiX9DmSPQrDWOsIQJsYqUdtpNas7Rzg4XwlZMtmBc3j0ftFB YeGIIpaWpzj5rjXED6HHGdW0B1rQAls1zjNUhkRCUllOI1jhU9DTHcsTCvT0BraY6kQKN xQG7bvon5p0nyJQZ0BGnkHTPyVoU4tvX2HGQryCWqOFVweHzzTRmjp006KHR2JuLbQUHrm3PgZ1EtrEx sF58tjHulW75xMXMroXyqfD6rvWlfgL4bOvZaOhZxGWtulEbwbWJbodvlFEwneaX3KTklbpsqPSRxXNq wH2lzKgKuNZJniBohUPjku8LrAELbMAEzUqrixvW5WYKNd02qLFHmh4BaPDPuhQ6vuCZb EEbgkiKzqZW9IMgokbCiWkJdfdMbXPKenB3cBIXyCK9gXWLktnNfqf4dcmKpUKZuPHFgG0IuwfybmDry alSsPBFcpw0twuMxBRQ6NGJWOU4SLNPaZHWfm19mJJUqcFyipC1krQWtvgHdUCBze9SfnZ0zyMCKCXYw K8dbAX6hZXbnr2CbmDRkkTXqmDM0UZWuz5CrXgKbpqVqoKBgnSOuI3HngSabE0aaPYLbL HCcmoSqkWAps0FoHYIetUL9pOPmIS6RXoUTb35sODMhQUIYdrEgPOYlaQjbaAJ1xjM1lU5sPcQQDlMqv TVuhTAvWtlmGZJcm183rf5glaZ9PKKoPYZjuewym1YzMFSeRHDzyE68VDDbYYExbm7itxtszMMmidDvM 6Ixyxb5nG1jRGUbXFlbUHNsTADgBcCiyCScQsZcTcVuhEiboIvkDCfuWmGtVSKuTLmiE4 hcZjFcZnMyMlxwYXJ9 [facility] Glucose Qrtfek1442-03-58 21:43:33 Test Item Value Reference Interpretation Comments Range POC Glucose (test 117 mg/dL 70-99 H Capillary blood code = 5651) samples, e.g. obtained by fingerstick, ma y have inaccurate resu lts in patients with decreased perip heral blood flow. Met hod description: Al l results are shital sured using Electrochemistr y test methodology. Th e glucose in the sample mixes with the reagents on the test strip. The reac tion produces an lamont ctric current. The am ount of current prod uced is proportional to the glucose concentration i n the blood. PO Sample Type (test Capillary code = 9554) Performing Lab (test [facility] [place] code = 15037) [facility] Cli nical Lab, [address], [place] [address]; Associate Professor Of Kinesiology: Mayte Sol MD Lab Interpretation Abnormal (test code = 70962-0) [facility] Antibody Screen [id number] 16:34:47 Test Item Value Reference Range Interpretation Comments TMP Auto Neg At the present ABSC Interp time, patient (test code = plasma shows no ____ANGIE JUSTICE 7535) evidence of RBC MD DEONDRE, P hD - alloantibodies. [id number] d by: Cynthia TORRES, PhD - [id number] D ate/Time: 09.05.2022 10:3 4 AM AUTO BODY DETAILER Transcribed Kel e/Time: 09.05.2022 10:3 4 AM CSTElectronical ly Signed By: ANGIE MENDOSA MD, PhD - [id number] on 09.05.2022 1 0:34 AM [facility] [id number] 14:30:09 Test Item Value Reference Range Interpretation Comments ABSC. (test code = 890-4) Negative ABSC [facility] 14:30:08 Test Item Value Reference Range Interpretation Comments ABORh. (test code = 882-1) A POS [facility] Expiration [id number] 14:30:04 Test Item Value Reference Range Interpretation Comments T & S Expiration (test code = 09/08/2022 5318) [facility] (SARS-CoV-2) PCR- Asymptomatic [id number] 08:04:22 Test Item Value Reference Range Interpretation Comments COVID19 (SARS Not Detected Not Detected CoV-2) Result (test code = ____[place] a 89753-9) qualitative reverse-transcr iptase polymerase rolando n reaction (RT-PC R) developed for t he Deborah PHILLIP 680 0 system and inte nded for qualitative detection of SA RS CoV-2 RNA in nasopharyngeal and oropharyngeal s wab specimens colle cted from any indivi duals, including those suspected of CO VID-19 by their health care provider, and t hose without symptom s or other reasons t o suspect COVID-1 9. A fact sheet for patients provid ed by the manufacture r ([employer]) c an be reviewed at:https://www. fda.go v/media/217365/ downlo ad. A fact shee t for Health Care pro viders is provided by the pilot plant supervisor ([employer]) and can be reviewed at: https://www.fda .gov/m edia/614619/mike nload Results must be interpreted wit hin the context of all relevant clinic al and laboratory find ings and should not form the sole basis for a diagnosis or treatment decis ion. Positive result s do not rule out bacterial infec tion or co-infection with other viruses. Negative result s do not rule out SARS-CoV-2 and must be combined wit h clinical observations, p atient history, and/or epidemiological information. "Presumptive Positive" resul ts are due to partial amplification o f SARS-CoV-2 targ ets and indicates l ow amounts of viru s present in the specimen at or near the limit of detection. Regardless, individuals wit h "Presumptive Positive" resul ts should be manag ed per institutional guidelines as individuals pos itive for SARS-CoV-2 virus, including use o f appropriate inf ection control protoco ls. Internal contro ls are included to ass ess for possible amplification inhibitors. If inhibition is detected, testi ng is repeated and if inhibition is confirmed the specimen is res ulted as "Invalid". W hen an "Invalid" resul t occurs, it is recommended to wait 3 days before submitting a ne w specimen for te sting if clinically indicated. This assay has been approv ed by the FDA for use only under Emergency Use Authorization ( EUA) in laboratories that have been CLIA-certified to perform moderate-comple xity and high-comple xity tests. The performance characteristics of this assay were verified by the Microbiology Laboratory at [facility], CLIA Accreditation # : [id number] and CAP Accreditation # : [id number]. COVID19 SARS CERAMIC ENGINEER Swab Source (test code = 97532) COVID19 SARS Pre-OR Procedure Indication (test code = 20102) [facility] Notes Date/Time Note Provider Source 2023-06-05 08:11:36 [id number]:11:36Formatting of this note [facility] might be different from the original.Refill sent. Needs appointment prior to next refill request [id number] encounter [id number]:11:36Telephone encounter [id number] 9|[id number] for patient [id number] Oe[id number] OWXBMPYMLBAQRIFQ8915-59-77D14:11:361.2.840 .[id number]|1.2.840.431693.1.13.104. [id number] 2023-06-04 21:29:01 7825-37-05X03:29:01Formatting of this note [facility] is different from the original.Images from the original note were not included.Last OV:02/28/[address] Walker Refill:01/24/[address] Walker Labs Pertaining to Med:N/AFuture Appt:N/ARouted to provider for review.Anti-nausea Failed 06/04/2023 05:44 PM Protocol Details This refill cannot be delegated Manual Review: [facility] providers only allowed to refill requests. Valid encounter within last 12 months [id number] encounter [id number]:30:29Telephone encounter [id number] 9|[id number] for patient [id number] WJUVSJRTSZLVANEC0538-08-19E20:30:291.2.840 .315907.1.72.3.15|1.2.840.227021.1.13.104. [id number] 2023-05-30 09:58:17 0544-29-89D54:58:17Formatting of this note [facility] might be different from the original.Left message on voicemail at [phone] to call back today ([phone]). Will need mother's and meds needing refilled to create encounter under mother's chart for refills. [id number] encounter LgwdEP4413-04-21P53:59:34Telephone encounter [id number] 9|[id number] for patient [id number] [place], [place] [id number] [id number]:59:341.2.840 .[id number]|[id number]. [id number]
[2023-08-25] MEDS ORDERED: NA CHLORIDE 0.9% 1,000 ML ONE (10:42)
[2023-08-25 10:53] LABS: Protime INR 0.98
[2023-08-25 10:55] LABS: Absolute Lymphocytes (CBC) 1.8 K/uL (0.7-4.9); Hematocrit 39.2 % (36.0-45.0); Lymphocytes % 22.3 % (15.3-44.8); MCV 89.1 fL (80-100); MPV 8.2 fL (7.6-11.3); Platelets 387 thou/uL (152-406)
[2023-08-25 11:03] LABS: SARS-CoV-2 Antigen Rapid Res Negative (Negative)
[2023-08-25 11:08] LABS: Albumin 3.3 g/dL (3.4-5.0); Bilirubin Direct 0.2 mg/dL (0-0.2); Bilirubin Indirect, Calculated 0.2 mg/dL (0.2-0.8); Bilirubin Total 0.4 mg/dL (0.2-1.0); Magnesium 1.6 mg/dL (1.6-2.4); Potassium 3.9 mEq/L (3.5-5.1); Troponin High Sensitivity 5.3 pg/mL (<58.9)
--- NOTE | 2023-08-25 11:25 | RAD REPORT ---
EXAM DESCRIPTION: Harinder Single View08/25/2023 10:44 am CLINICAL HISTORY: Cough COMPARISON: none FINDINGS: The lungs appear clear of acute infiltrate. The heart is normal size IMPRESSION: No acute abnormalities displayed
--- NOTE | 2023-08-25 11:37 | RAD REPORT ---
EXAM DESCRIPTION: CT - Head Brain Wo Cont - 08/25/2023 10:52 am CLINICAL HISTORY: Dizziness COMPARISON: none TECHNIQUE: Computed axial tomography of the head was obtained. IV contrast was not requested. All CT scans are performed using dose optimization technique as appropriate and may include automated exposure control or mA/KV adjustment according to patient size. FINDINGS: An intracranial bleed is not seen The ventricles are normal in caliber No significant hypodense areas within the brain visualized No extra-axial fluid collection is noted. Fluid within the sinuses/ mastoids is not seen IMPRESSION: No acute intracranial abnormality is seen If patient's symptoms persist MRI of the brain would be recommended
--- NOTE | 2023-08-25 11:50 | EDPHYS ---
Physician Documentation [facility] Name: Nabor Go Age: 58 yrs Sex: Female : 1965 Arrival Date: 08/25/2023 Time: 10:07 Bed 16 Private MD: ED Physician Lewis Rowe HPI: 08/25 10:47 This 58 yrs old Female presents to ER via EMS with complaints of General bree Weakness, Dizziness. 10:47 The patient presents with dizziness, generalized weakness. Onset: The symptoms/episode bree began/occurred 2 day(s) ago. Context: occurred while the patient was standing, just prior to the episode the patient experienced no apparent symptoms. Modifying factors: The symptoms are alleviated by nothing, the symptoms are aggravated by standing up. Associated signs and symptoms: Pertinent positives: headache, nausea, numbness. Severity of symptoms: At their worst the symptoms were moderate this morning, in the emergency department the symptoms have improved moderately. Patient's baseline: Neuro: alert and fully oriented. The patient has experienced similar episodes in the past, a few times. Historical: - Allergies: 10:11 No Known Allergies; kc6 - PMHx: 10:11 Diabetes mellitus; breast cancer stage 4; Heart disease; Kidney disease; kc6 - PSHx: 10:11 Thyroidectomy; kc6 - Immunization history:: Client reports having NOT received the Covid vaccine. Flu vaccine is not up to date. - Social history:: Smoking status: Patient denies any tobacco usage or history of. - Family history:: not pertinent. ROS: 10:47 Constitutional: Negative for fever, chills, and weight loss, Eyes: Negative for injury, bree pain, redness, and discharge, ENT: Negative for injury, pain, and discharge, Neck: Negative for injury, pain, and swelling, Cardiovascular: Negative for chest pain, palpitations, and edema, Respiratory: Negative for shortness of breath, cough, wheezing, and pleuritic chest pain, Abdomen/GI: Negative for abdominal pain, nausea, vomiting, diarrhea, and constipation, Back: Negative for injury and pain, : Negative for injury, bleeding, discharge, and swelling, MS/Extremity: Negative for injury and deformity, Skin: Negative for injury, rash, and discoloration, Psych: Negative for depression, anxiety, suicide ideation, homicidal ideation, and hallucinations, Allergy/Immunology: Negative for hives, rash, and allergies, Endocrine: Negative for neck swelling, polydipsia, polyuria, polyphagia, and marked weight changes, 10:47 Neuro: Positive for headache, weakness, Exam: 10:47 Constitutional: This is a well developed, well nourished patient who is awake, alert, bree and in no acute distress. Head/Face: Normocephalic, atraumatic. Eyes: Pupils equal round and reactive to light, extra-ocular motions intact. Lids and lashes normal. Conjunctiva and sclera are non-icteric and not injected. Cornea within normal limits. Periorbital areas with no swelling, redness, or edema. ENT: Nares patent. No nasal discharge, no septal abnormalities noted. Tympanic membranes are normal and external auditory canals are clear. Oropharynx with no redness, swelling, or masses, exudates, or evidence of obstruction, uvula midline. Mucous membranes moist. Neck: Trachea midline, no thyromegaly or masses palpated, and no cervical lymphadenopathy. Supple, full range of motion without nuchal rigidity, or vertebral point tenderness. No Meningismus. Chest/axilla: Normal chest wall appearance and motion. Nontender with no deformity. No lesions are appreciated. Cardiovascular: Regular rate and rhythm with a normal S1 and S2. No gallops, murmurs, or rubs. Normal PMI, no JVD. No pulse deficits. Respiratory: Lungs have equal breath sounds bilaterally, clear to auscultation and percussion. No rales, rhonchi or wheezes noted. No increased work of breathing, no retractions or nasal flaring. Abdomen/GI: Soft, non-tender, with normal bowel sounds. No distension or tympany. No guarding or rebound. No evidence of tenderness throughout. Back: No spinal tenderness. No costovertebral tenderness. Full range of motion. Skin: Warm, dry with normal turgor. Normal color with no rashes, no lesions, and no evidence of cellulitis. MS/ Extremity: Pulses equal, no cyanosis. Neurovascular intact. Full, normal range of motion. Neuro: Awake and alert, GCS 15, oriented to person, place, time, and situation. Cranial nerves II-XII grossly intact. Motor strength 5/5 in all extremities. Sensory grossly intact. Cerebellar exam normal. Normal gait. Psych: Awake, alert, with orientation to person, place and time. Behavior, mood, and affect are within normal limits. 10:47 ECG was reviewed by the Attending Physician. 11:21 Musculoskeletal/extremity: Circulation is intact in all extremities. Sensation intact. bree Compartment Syndrome exam of affected extremity: is normal. Weight bearing: able to fully bear weight, DVT Exam: No signs of deep vein thrombosis. no pain, no swelling, no tenderness, negative Homans' sign noted on exam, no appreciated bluish discoloration, no erythema, no increased warmth, Vital Signs: 10:10 BP 112 / 70; Pulse 73; Resp 16 S; Temp 97.7(O); Pulse Ox 100% on R/A; Weight 102.06 kg kc6 (R); Height 5 ft. 6 in. (R); 11:42 BP 129 / 64 RA Supine (auto/lg); Pulse 73; kc6 11:42 BP 122 / 63 RA Sitting (auto/lg); Pulse 71; kc6 12:30 BP 117 / 80; Pulse 72; Resp 17 S; Pulse Ox 100% on R/A; kc6 10:10 Body Mass Index 36.32 (102.06 kg, 167.64 cm) kc6 MDM: 10:12 Patient medically screened. bree 10:52 Differential diagnosis: cardiac arrhythmia, CVA, generalized weakness, GI bleed, bree hypovolemia, idiopathic dizziness, near-syncope, TIA. Data reviewed: vital signs, nurses notes, lab test result(s), EKG, radiologic studies, CT scan, plain films. Consideration of Admission/Observation Escalation of care including admission/observation considered. I considered the following discharge prescriptions or medication management in the emergency department Medications were administered in the Emergency Department. See MAR. Independent interpretation of the following test(s) in the Emergency Department EKG: See my EKG interpretation above. Test considered but Not performed: Ultrasound no carotid usg. Historians other than the Patient: Spouse/Significant Other: kidney disease. Care significantly affected by the following chronic conditions: Diabetes, Hypertension. 08/25 10:19 Order name: Basic Metabolic Panel; Complete Time: 11:21 bree 08/25 10:19 Order name: CBC with Diff; Complete Time: 11:21 bree 08/25 10:19 Order name: LFT's; Complete Time: 11:21 bree 08/25 10:19 Order name: Magnesium; Complete Time: 11:21 [place] 08/25 10:19 Order name: NT PRO-BNP; Complete Time: 11:21 [place] 08/25 10:19 Order name: PT-INR; Complete Time: 11:21 [place] 08/25 10:19 Order name: Troponin HS; Complete Time: 11:21 [place] 08/25 10:19 Order name: Lipase; Complete Time: 11:21 [place] 08/25 10:19 Order name: Urinalysis w/ reflexes 08/25 10:19 Order name: Flu; Complete Time: 11:21 [place] 08/25 10:19 Order name: SARS RAPID; Complete Time: 11:21 [place] 08/25 10:19 Order name: XRAY Chest (1 view); Complete Time: 11:26 [place] 08/25 10:19 Order name: CT Head Brain wo Cont; Complete Time: 11:47 [place] 08/25 10:19 Order name: EKG; Complete Time: 10:20 [place] 08/25 10:19 Order name: Cardiac monitoring; Complete Time: 10:43 [place] 08/25 10:19 Order name: EKG - Nurse/Tech; Complete Time: 10:43 [place] 08/25 10:19 Order name: IV Saline Lock; Complete Time: 10:43 [place] 08/25 10:19 Order name: Labs collected and sent; Complete Time: 10:43 [place] 08/25 10:19 Order name: O2 Per Protocol; Complete Time: 10:27 [place] 08/25 10:19 Order name: O2 Sat Monitoring; Complete Time: 10:27 [place] 08/25 11:22 Order name: Orthostatics; Complete Time: 11:41 [place] 08/25 11:47 Order name: Misc. Order: ua; Complete Time: 12:11 [place] 08/25 11:48 Order name: PO challenge; Complete Time: 12:11 [place] EC:47 Rate is 76 beats/min. Rhythm is regular. QRS [place] is Normal. [place] interval is normal. QRS bree interval is normal. QT interval is normal. No Q waves. T waves are Normal. No ST changes noted. Clinical impression: NSR w/ Non-specific ST/T Changes and LVH. Administered Medications: 10:43 Drug: NS 0.9% IV 1000 ml IV at 1 bolus Per protocol; 1000 mL bolus Route: IV; Rate: 1 kc6 bolus; Site: left antecubital; 13:24 Follow up: Response: No adverse reaction; IV Status: Completed infusion kc6 Disposition Summary: 08/25/23 11:49 Discharge Ordered Notes: Location: Home bree Problem: new bree Symptoms: have improved bree Condition: Stable bree Diagnosis - Weakness bree - Headache bree - Dizziness and giddiness bree - Tobacco abuse counseling bree - Tobacco use bree Followup: bree - With: Private Physician - When: 2 - 3 days - Reason: Recheck today's complaints, Re-evaluation by your physician Discharge Instructions: - Discharge Summary Sheet bree - Dizziness bree - General Headache Without Cause bree - Steps to Quit Smoking bree - Health Risks of Smoking bree - Weakness bree - Steps to Quit Smoking, Upon-xg-Yzae bree - Weakness, Jskq-bf-Kqun bree - General Headache Without Cause, Invu-sm-[place] bree Forms: - Medication Reconciliation Form [place] - Thank You Letter bree - Antibiotic Education bree - Prescription Opioid Use bree - Patient Portal Instructions bree - Leadership Thank You Letter [place] Prescriptions: - ondansetron 4 mg Oral Tablet,disintegrating - take 1 tablet ORAL route every 6-8 hours; 20 tablet; Refills: 0, Product bree Selection Permitted Signatures: Dispatcher [employer] Lewis Wayne MD MD cha Campbell, Kaitlyn, RN RN kc6
--- NOTE | 2023-08-25 11:50 | ER ---
Nurse's Notes [facility] Name: Nabor Go Age: 58 yrs Sex: Female : 1965 Arrival Date: 08/25/2023 Time: 10:07 Bed 16 Private MD: Diagnosis: Weakness;Headache;Dizziness and giddiness;Tobacco abuse counseling;Tobacco use Presentation: 08/25 10:10 Chief complaint: EMS states: pt woke up this am with generalized weakness and feeling kc6 faint when she gets up to ambulate. no other complaints. BGL en route 114. Coronavirus screen: At this time, the client does not indicate any symptoms associated with coronavirus-19. Ebola Screen: No symptoms or risks identified at this time. Initial Sepsis Screen: Does the patient meet any 2 criteria? No. Patient's initial sepsis screen is negative. Does the patient have a suspected source of infection? No. Patient's initial sepsis screen is negative. Risk Assessment: Do you want to hurt yourself or someone else? Patient reports no desire to harm self or others. Onset of symptoms was August 25, 2023. 10:10 Method Of Arrival: EMS: [facility] kc6 10:10 Acuity: CAESAR 3 kc6 Triage Assessment: 10:11 General: Appears in no apparent distress. comfortable, Behavior is calm, cooperative, kc6 appropriate for age. Pain: Denies pain. EENT: No signs and/or symptoms were reported regarding the EENT system. Neuro: Level of Consciousness is awake, alert, obeys commands, Oriented to person, place, time, situation, Appropriate for age Reports dizziness, weakness. Cardiovascular: Denies chest pain, Heart tones S1 S2 present Capillary refill < 3 seconds. Respiratory: Airway is patent Trachea midline Respiratory effort is even, unlabored, Respiratory pattern is regular, symmetrical. Derm: No signs and/or symptoms reported regarding the dermatologic system. Skin is intact, is healthy with good turgor, Skin is pink, warm \T\ dry. Historical: - Allergies: 10:11 No Known Allergies; kc6 - PMHx: 10:11 Diabetes mellitus; breast cancer stage 4; Heart disease; Kidney disease; kc6 - PSHx: 10:11 Thyroidectomy; kc6 - Immunization history:: Client reports having NOT received the Covid vaccine. Flu vaccine is not up to date. - Social history:: Smoking status: Patient denies any tobacco usage or history of. - Family history:: not pertinent. Screenin:13 [facility] ED Fall Risk Assessment (Adult) History of falling in the last 3 months, kc6 including since admission No falls in past 3 months (0 pts) Confusion or Disorientation No (0 pts) Intoxicated or Sedated No (0 pts) Impaired Gait No (0 pts) Mobility Assist Device Used No (0 pt) Altered Elimination No (0 pt) Score/Fall Risk Level 0 - 2 = Low Risk. Abuse screen: Denies threats or abuse. Denies injuries from another. Nutritional screening: No deficits noted. Tuberculosis screening: No symptoms or risk factors identified. Assessment: 10:13 Reassessment: please see triage assessment. kc6 11:13 Reassessment: Patient appears in no apparent distress at this time. No changes from kc6 previously documented assessment. Patient and/or family updated on plan of care and expected duration. Pain level reassessed. Patient is alert, oriented x 3, equal unlabored respirations, skin warm/dry/pink. 11:42 Reassessment: pt unable to tolerate standing position with orthostatics. reports kc6 feeling very lightheaded and dizzy with ears ringing. BP 117/80, HR 95. pt placed back in bed, side rails up x2, call light within reach. 11:59 Reassessment: d/c pending labs results and IV fluid completion. kc6 12:13 Reassessment: Patient appears in no apparent distress at this time. No changes from kc6 previously documented assessment. Patient and/or family updated on plan of care and expected duration. Pain level reassessed. Patient is alert, oriented x 3, equal unlabored respirations, skin warm/dry/pink. 13:13 Reassessment: Patient appears in no apparent distress at this time. No changes from kc6 previously documented assessment. Patient and/or family updated on plan of care and expected duration. Pain level reassessed. Patient is alert, oriented x 3, equal unlabored respirations, skin warm/dry/pink. Vital Signs: 10:10 BP 112 / 70; Pulse 73; Resp 16 S; Temp 97.7(O); Pulse Ox 100% on R/A; Weight 102.06 kg kc6 (R); Height 5 ft. 6 in. (R); 11:42 BP 129 / 64 RA Supine (auto/lg); Pulse 73; kc6 11:42 BP 122 / 63 RA Sitting (auto/lg); Pulse 71; kc6 12:30 BP 117 / 80; Pulse 72; Resp 17 S; Pulse Ox 100% on R/A; kc6 10:10 Body Mass Index 36.32 (102.06 kg, 167.64 cm) kc6 ED Course: 10:08 Patient arrived in ED. kc6 10:11 Triage completed. kc6 10:11 Arm band placed on. kc6 10:12 Lewis Rowe MD is Attending Physician. [facility] 10:13 Patient has correct armband on for positive identification. Bed in low position. Call kc6 light in reach. Side rails up X 1. Adult w/ patient. Client placed on continuous cardiac and pulse oximetry monitoring. NIBP monitoring applied. library monitor on. 10:13 Patient maintains SpO2 saturation greater than 95% on room air. kc6 10:27 No Brantley, RN is Primary Nurse. kc6 10:43 SARS RAPID Sent. kc6 10:43 Flu Sent. kc6 10:43 Inserted saline lock: 20 gauge in left antecubital area, using aseptic technique. Blood kc6 collected. 10:46 XRAY Chest (1 view) In Process Unspecified. EDMS 10:54 CT Head Brain wo Cont In Process Unspecified. EDMS 13:24 No provider procedures requiring assistance completed. IV discontinued, intact, kc6 bleeding controlled, No redness/swelling at site. Pressure dressing applied. Administered Medications: 10:43 Drug: NS 0.9% IV 1000 ml IV at 1 bolus Per protocol; 1000 mL bolus Route: IV; Rate: 1 kc6 bolus; Site: left antecubital; 13:24 Follow up: Response: No adverse reaction; IV Status: Completed infusion kc6 Medication: 13:25 VIS not applicable for this client. kc6 Outcome: 11:49 Discharge ordered by . [facility] 13:24 Discharged to home via wheelchair, with significant other, kc6 13:24 Condition: improved 13:24 Discharge instructions given to patient, Instructed on discharge instructions, follow up and referral plans. medication usage, Demonstrated understanding of instructions, follow-up care, medications, Prescriptions given X 1, 13:25 Patient left the ED. kc6 Signatures: Dispatcher [employer] EDMS Gillian Rowey, MD MD bree Brantley, No, RN RN kc6
[2023-08-25 12:36] LABS: Transitional Epithelial <5 /HPF (None Seen); Urine Bacteria 20-50 /HPF (<20); Urine Bilirubin NEGATIVE (Negative); Urine Blood Negative (Negative); Urine Clarity Extremely Turbid (Clear); Urine Color Light-Yellow (Yellow); Urine Glucose NEGATIVE (Negative); Urine Mucus Slight /HPF (None Seen); Urine Protein NEGATIVE (Negative); Urine RBC <5 /HPF (None Seen); Urine Urobilinogen Normal (Normal); Urine pH 6.5 (5.0-7.0)
[2023-08-25 13:29] VITALS: TEMP 97.7; O2SAT 100
[2023-08-25 13:32] VITALS: BP 117/80
--- NOTE | 2023-08-27 13:36 | EKG ---
Test Date: 2023-08-25 Test Time: 10:31:50 [employer]: NATHALIA MEASUREMENT RESULTS: Intervals: Rate: 76 RI: 114 QRSD: 98 QT: 410 QTc: 461 [place]: P: -5 RI: 114 QRS: -9 T: 191 INTERPRETIVE STATEMENTS: Normal sinus rhythm Left ventricular hypertrophy with repolarization abnormality Abnormal ECG No previous ECG available for comparison Electronically Signed On 08-27-23 13:28:47 PLAT[employer]UM [employer] PALL[employer]IUM KETTLE TENDER by Alessio Reynolds
== END 2023-08-25 13:25 | disposition home or self-care (01) ==
LOC: ER 10:07
DX: R53.1 Weakness (principal); R51.9 Headache, unspecified; R42 Dizziness and giddiness; Z72.0 Tobacco use; Z71.6 Tobacco abuse counseling; Z11.52 Encounter for screening for COVID-19
CPT/HCPCS: 96361; 93005; 85025; 81001; 80048; 36415; 83735; 85610; 80076; 84484; 83690; 83880; 87804 ×2; 70450; 71045; 96360; 99285; 87811; J7030